=== PATIENT | female | born 1965 ===

== ENCOUNTER 2017-03-01 19:27 | Emergency (ER) | payer MEDICAID, OTHER ==
[2017-03-01 19:46] VITALS: BMI 19.5
[2017-03-01 19:47] VITALS: BP 96/58; RESP 16
[2017-03-01] MEDS ORDERED: Sodium Chloride 0.9% 1,000 ML IV STA (20:33)
[2017-03-01] MEDS ORDERED: DiphenhydrAMINE 50 mg/ml Inj IVP STA (20:34)
--- NOTE | 2017-03-01 20:46 | ED PDOC ---
Arrival/HPI - General Chief Complaint: Headache Time Seen by Provider: 03/01/17 20:32 Historian: Patient - History of Present Illness Narrative History of Present Illness (Text): 03/01/17 20:21 A 51 year old female presents to the emergency department with two complaints. Patient complaining of right lower flank pain radiating into the right lower abdomen for the past 3 days. Patient reports she has a history of a kidney stone and pain is similar. She denies any hematuria. Patient also complains of a migraine that has been present for the past 3 days. She says she has a history of Migraines at this similar to previous episodes. She denies any fever , nausea, vomiting, focal weakness, dizziness or other complaints at this time. PMD: Dr. Levin Time/Duration: Other (3 days) Symptom Onset: Sudden Symptom Course: Unchanged Quality: Other Activities at Onset: Rest Context: Home Past Medical History - Provider Review Nursing Documentation Reviewed: Yes - Infectious Disease Hx of Infectious Diseases: None - Tetanus Immunization Tetanus Immunization: Unknown - Cardiac Hx Cardiac Disorders: Yes Hx Angina: Yes - Pulmonary Hx Respiratory Disorders: No - Neurological Hx Neurological Disorder: Yes Hx Migraine: Yes - HEENT Hx HEENT Disorder: No - Renal Hx Renal Disorder: No - Endocrine/Metabolic Hx Endocrine Disorders: Yes Hx Diabetes Mellitus Type 1: Yes - Hematological/Oncological Hx Blood Disorders: No - Integumentary Hx Dermatological Disorder: No - Musculoskeletal/Rheumatological Hx Musculoskeletal Disorders: No - Gastrointestinal Hx Gastrointestinal Disorders: No - Genitourinary/Gynecological Hx Genitourinary Disorders: No - Psychiatric Hx Psychophysiologic Disorder: Yes Hx Anxiety: Yes Hx Bipolar Disorder: Yes (has not taken meds x 5 months) Hx Substance Use: No - Surgical History Hx Appendectomy: Yes Hx Cholecystectomy: Yes Hx Hysterectomy: Yes - Anesthesia Hx Anesthesia: Yes Hx Anesthesia Reactions: No - Suicidal Assessment Feels Threatened In Home Enviroment: No Family/Social History - Physician Review Nursing Documentation Reviewed: Yes Family/Social History: Unknown Family HX Smoking Status: Heavy Smoker > 10 Cigarettes Daily Hx Alcohol Use: No Hx Substance Use: No Allergies/Home Meds Allergies/Adverse Reactions: Allergies aspirin Allergy (Verified 03/01/17 19:46) SHORTNESS OF BREATH Home Medications: Home Meds Medication Instructions Recorded Confirmed Ativan 0 mg PO BID 02/04/15 03/01/17 Insulin Human NPH/Reg [HumuLIN 15 units SUBCUT .MORNING 03/01/17 03/01/17 70/30 (NPH/Reg)] Nitroglycerin [Nitrostat SL Tab] 1 tab SL PRN PRN 03/01/17 03/01/17 Paroxetine HCl [Paxil] 20 mg PO DAILY 03/01/17 03/01/17 Physical Exam - Physical Exam Narrative Physical Exam (Text): - Review of Systems Constitutional: Normal. absent: Fatigue, Weight Change, Fevers Eyes: Normal ENT: Normal Respiratory: Normal absent: SOB, Cough, Sputum Cardiovascular: Normal absent: Chest pain, Palpitations, Syncope Gastrointestinal: right lower abdominal pain. absent: Diarrhea, Nausea, Vomiting Genitourinary: Normal. absent: Dysuria, Frequency, Hematuria Musculoskeletal: left flank pain. absent: Arthralgias, Back Pain, Neck Pain Skin: Normal Neurological: headache. absent: Focal Weakness Endocrine: Normal Hemo/Lymphatic: Normal Psychiatric: Normal - Physical exam Patient appears age appropriate, speaking full sentences without difficulty - Systems Exam Head: Present: Atraumatic, Normocephalic Pupils: Present: PERRL Extraocular Muscles: Present: EOMI Conjunctiva: Present: Normal Mouth: Present: Moist Mucous Membranes Neck: Present: Normal Range of Motion. No: MIDLINE TENDERNESS, Paraspinal Tenderness Respiratory/Chest: Present: Clear to Auscultation, Good Air Exchange. No: Respiratory Distress, Accessory Muscle Use, Tachypneic Cardiovascular: Present: Regular Rate and Rhythm, Normal S1, S2, Peripheral Pulses Present. No: Murmurs Abdomen: Present: Normal Bowel Sounds, Right lower quadrant tenderness with palpation. No: Peritoneal Signs, Rebound, Guarding, Distention Back: Present: Left CVA tenderness with palpation No: Midline Tenderness, Paraspinal Tenderness Upper Extremity: Present: Normal Inspection. No: Cyanosis, Edema Lower Extremity: Present: Normal Inspection. No: Edema Neurological: Present: GCS=15, Speech Normal, cranial nerves II through XII fully intact with no cerebellar abnormality, neuro-sensory fully intact. No focal neurological deficits. Skin: Present: Warm, Dry, Normal Color. No: Rashes Lymphatic: Present: OX3, NI, NC Psychiatric: Present: Alert, Oriented x 3, Normal Insight, Normal Concentration Vital Signs Reviewed: Yes Vital Signs Temp Pulse Resp BP Pulse Ox 03/01/17 22:03 98.6 F 88 16 97 03/01/17 19:46 98.3 F 84 16 96/58 L 100 Temperature: Afebrile Blood Pressure: Hypotensive Pulse: Regular Respiratory Rate: Normal Appearance: Positive for: Well-Appearing, Non-Toxic, Comfortable Pain Distress: None Mental Status: Positive for: Alert and Oriented X 3 Medical Decision Making ED Course and Treatment: 03/01/17 20:21 Impression: A 51 year old female with right flank pain radiated to the right lower quadrant and a migraine. Differential Diagnosis include but are not limited to: kidney stone vs. migraine Plan: -- Abdomen/Pelvis CT -- Urinalysis -- Benadryl, Flomax, Reglan, Tylenol and IV FLuids -- Reassess and disposition Progress Notes: 03/01/17 23:[address] Vega in stable condition, pending CT read, reeval, dispo - Lab Interpretations Lab Results: Lab Results 03/01/17 20:42: Urine Color Yellow, Urine Appearance Clear, Urine pH 6.0, Ur Specific [place] >= 1.030, Urine Protein Negative, Urine Glucose (UA) Negative, Urine Ketones Trace H, Urine Blood Negative, Urine Nitrate Negative, Urine Bilirubin Negative, Urine Urobilinogen 1.0 H, Ur Leukocyte Esterase Negative I have reviewed the lab results: Yes - RAD Interpretation Radiology Orders: 03/01/17 20:35 ABD & PELVIS W/O PO OR IV CONT [CT] Stat - Medication Orders Current Medication Orders: Discontinued Medications Acetaminophen (Tylenol 325mg Tab) 975 mg PO STAT STA Stop: 03/01/17 20:34 Last Admin: 03/01/17 21:05 Dose: 975 mg Diphenhydramine HCl (Benadryl) 25 mg IVP STAT STA Stop: 03/01/17 20:35 Last Admin: 03/01/17 21:05 Dose: 25 mg Sodium Chloride (Sodium Chloride 0.9%) 1,000 mls @ 1,000 mls/hr IV .Q1H STA Stop: 03/01/17 21:32 Last Admin: 03/01/17 20:50 Dose: 1,000 mls/hr Metoclopramide HCl (Reglan) 10 mg IVP STAT STA Stop: 03/01/17 20:35 Last Admin: 03/01/17 21:07 Dose: 10 mg Tamsulosin HCl (Flomax) 0.4 mg PO STAT STA Stop: 03/01/17 20:35 Last Admin: 03/01/17 21:05 Dose: 0.4 mg - Scribe Statement The provider has reviewed the documentation as recorded by the Terrance Navarrete Provider Scribe Attestation: All medical record entries made by the Scribe were at my direction and personally dictated by me. I have reviewed the chart and agree that the record accurately reflects my personal performance of the history, physical exam, medical decision making, and the department course for this patient. I have also personally directed, reviewed, and agree with the discharge instructions and disposition. Disposition/Present on Arrival - Present on Arrival Any Indicators Present on Arrival: No History of DVT/PE: No History of Uncontrolled Diabetes: No Urinary Catheter: No History of Decub. Ulcer: No History Surgical Site Infection Following: None - Disposition Have Diagnosis and Disposition been Completed?: Yes Diagnosis: Abdominal pain Disposition Time: 23:06 Condition: STABLE Referrals: Samara Levin MD [Primary Care Provider] - Follow up with primary
[2017-03-01 21:29] LABS: URINE APPEARANCE CLEAR (CLEAR); URINE BILIRUBIN NEGATIVE (NEGATIVE); URINE BLOOD NEGATIVE (NEGATIVE); URINE COLOR YELLOW (YELLOW); URINE GLUCOSE (UA) NEGATIVE (NEGATIVE); URINE KETONE TRACE mg/dL (NEGATIVE); URINE LEUKOCYTE ESTERASE NEGATIVE Leu/uL (NEGATIVE); URINE PROTEIN NEGATIVE mg/dL (<30 mg/dL)
[2017-03-01 22:04] VITALS: PULSE 88; TEMP 98.6
--- NOTE | 2017-03-01 23:37 | ED PDOC ---
Physical Exam Vital Signs Reviewed: Yes Vital Signs Temp Pulse Resp BP Pulse Ox 03/01/17 22:03 98.6 F 88 16 97 03/01/17 19:46 98.3 F 84 16 96/58 L 100 Temperature: Afebrile Blood Pressure: Normal Pulse: Regular Respiratory Rate: Normal Appearance: Positive for: Well-Appearing, Non-Toxic, Comfortable Pain Distress: None Mental Status: Positive for: Alert and Oriented X 3 Medical Decision Making ED Course and Treatment: 03/01/17 23:35 Patient endorsed to me by , pending CT scan, reevaluation and disposition. Patient presents to the emergency department complaining of right flank pain radiating to right lower quadrant abdomen. States symptoms are similar to previous episode of nephrolithiasis.Also with coincidental migraine headache. 03/02/17 00:36 On re-evaluation, patient feels better and is in no acute distress. I have discussed the results and plan with the patient, who expresses understanding. Patient in agreement with plan to be discharged home. Patient is stable for discharge. Patient was instructed to follow up with physician or return if symptoms worsen or new concerning symptoms arise. - Lab Interpretations Lab Results: Lab Results 03/01/17 20:42: Urine Color Yellow, Urine Appearance Clear, Urine pH 6.0, Ur Specific [place] >= 1.030, Urine Protein Negative, Urine Glucose (UA) Negative, Urine Ketones Trace H, Urine Blood Negative, Urine Nitrate Negative, Urine Bilirubin Negative, Urine Urobilinogen 1.0 H, Ur Leukocyte Esterase Negative - RAD Interpretation Narrative RAD Interpretations (Text): 03/02/17 00:22 EXAM: CT Abdomen and Pelvis Without Intravenous Contrast FINDINGS: Lower thorax: Bibasilar interstitial thickening present. ABDOMEN:IV contrast not given limiting evaluation of the solid organs of the abdomen and pelvis as well as the appendix. Liver: Unremarkable. Gallbladder and bile ducts: Cholecystectomy clips present. No ductal dilation. Pancreas: . No ductal dilation. Spleen: . No splenomegaly. Adrenals: . No mass. Kidneys and ureters: Nonobstructing calcification in the left kidney present. A calcification along the projected course of the right ureter present in the lower pelvis although ureter is not visualized. No proximal obstruction present. Correlation with prior imaging or follow up with contrast delayed phase images. Correlate with history. Stomach and bowel: Copious amount of stool in the colon present. No obstruction. No mucosal thickening. Appendix: Appendix is not visualized and therefore difficult to characterize. PELVIS: Bladder: . No stones. Reproductive: Unremarkable as visualized. ABDOMEN and PELVIS: Intraperitoneal space: . No free air. No significant fluid collection. Bones/joints: No acute fracture. No dislocation. Soft tissues: within normal limits Vasculature: . No abdominal aortic aneurysm. Lymph nodes: Nonspecific scattered mildly prominent lymph nodes present. IMPRESSION: 1. Nonobstructing calcification in the left kidney present. 2. A calcification along the projected course of the right ureter present in the lower pelvis although ureter is not visualized. No proximal obstruction present. Correlation with prior imaging or follow up with contrast delayed phase images. Correlate with history. Radiology Orders: 03/01/17 20:35 ABD & PELVIS W/O PO OR IV CONT [CT] Stat Pst Supervisor: Radiologist - Medication Orders Current Medication Orders: Discontinued Medications Acetaminophen (Tylenol 325mg Tab) 975 mg PO STAT STA Stop: 03/01/17 20:34 Last Admin: 03/01/17 21:05 Dose: 975 mg Diphenhydramine HCl (Benadryl) 25 mg IVP STAT STA Stop: 03/01/17 20:35 Last Admin: 03/01/17 21:05 Dose: 25 mg Sodium Chloride (Sodium Chloride 0.9%) 1,000 mls @ 1,000 mls/hr IV .Q1H STA Stop: 03/01/17 21:32 Last Admin: 03/01/17 20:50 Dose: 1,000 mls/hr Metoclopramide HCl (Reglan) 10 mg IVP STAT STA Stop: 03/01/17 20:35 Last Admin: 03/01/17 21:07 Dose: 10 mg Tamsulosin HCl (Flomax) 0.4 mg PO STAT STA Stop: 03/01/17 20:35 Last Admin: 03/01/17 21:05 Dose: 0.4 mg - Ortizibe Statement The provider has reviewed the documentation as recorded by the Terrance Ibrahim Provider Attestation: All medical record entries made by the Terrance were at my direction and personally dictated by me. I have reviewed the chart and agree that the record accurately reflects my personal performance of the history, physical exam, medical decision making, and the department course for this patient. I have also personally directed, reviewed, and agree with the discharge instructions and disposition. Disposition/Present on Arrival - Present on Arrival Any Indicators Present on Arrival: No History of DVT/PE: No History of Uncontrolled Diabetes: No Urinary Catheter: No History of Decub. Ulcer: No History Surgical Site Infection Following: None - Disposition Have Diagnosis and Disposition been Completed?: Yes Diagnosis: Renal colic, Migraine Disposition: HOME/ ROUTINE Disposition Time: 00:28 Patient Plan: Discharge Patient Problems: Current Active Problems Problem Status Onset Migraine Acute Renal colic Acute Condition: STABLE Discharge Instructions (ExitCare): Renal Colic (ED), Migraine Headache (ED) Additional Instructions: Drink plenty of liquids/take meds as prescribed/follow up with the urologist this week/any recurrent worsening symptoms return to the emergency room Prescriptions: oxyCODONE/Acetaminophen [Percocet 5/325 mg Tab] 1 ea PO Q6 PRN #12 tab PRN Reason: Pain, Moderate (4-7) Referrals: Samara Levin MD [Primary Care Provider] - Follow up with primary
[2017-03-02 01:05] VITALS: O2SAT 98
--- NOTE | 2017-03-02 10:13 | CT ---
PROCEDURE: CT Abdomen and Pelvis without intravenous contrast HISTORY: Renal colic COMPARISON: None. TECHNIQUE: Axial and reformatted coronal and sagittal CT images of the abdomen and pelvis were obtained without IV or oral contrast administration.. Contrast Dose: 0 Radiation dose: Total exam DLP = 222.79 mGy-cm. This CT exam was performed using one or more of the following dose reduction techniques: Automated exposure control, adjustment of the mA and/or kV according to patient size, and/or use of iterative reconstruction technique. FINDINGS: LOWER THORAX: Minimal atelectasis at the lung bases LIVER: Unremarkable. No gross lesion or ductal dilatation. GALLBLADDER AND BILE DUCTS: Status post cholecystectomy PANCREAS: Unremarkable. No gross lesion or ductal dilatation. SPLEEN: Unremarkable. ADRENALS: Unremarkable. No mass. KIDNEYS AND URETERS: There is 5.8 millimeter nonobstructing calculus at the upper pole of the left kidney. No evidence of hydronephrosis. There is 3 millimeter calcification at or adjacent to the mid right ureter may represent calcified lymph node. VASCULATURE: Unremarkable. No aortic aneurysm. BOWEL: Unremarkable. No obstruction. No gross mural thickening. Mild constipation is noted. APPENDIX: No evidence of appendicitis PERITONEUM: Unremarkable. No free fluid. No free air. LYMPH NODES: Unremarkable. No enlarged lymph nodes. BLADDER: Unremarkable. REPRODUCTIVE: Prostate is normal in size. There are calcifications seen in both seminal vesicles/vas deferens. BONES: No acute fracture. OTHER FINDINGS: None. IMPRESSION: Approximately 6 millimeter nonobstructing calculus at the upper pole of the left kidney. No evidence of hydronephrosis. 3 millimeter calcification at or adjacent to the mid right ureter without evidence of hydroureter. Otherwise no evidence of acute pathology in the abdomen and pelvis. Preliminary report was submitted by [facility].
== END 2017-03-02 01:05 | disposition home or self-care (01) ==
LOC: ED 19:27
DX: R10.9 Unspecified abdominal pain (principal); I20.9 Angina pectoris, unspecified; F41.9 Anxiety disorder, unspecified
CPT/HCPCS: 74176; 81003; 96374; 96375; 99285; J1200; J2765; J7040

== ENCOUNTER 2017-05-27 15:44 | Observation (INO) | payer OTHER ==
[2017-05-27 15:53] VITALS: BMI 21.9
--- NOTE | 2017-05-27 16:10 | ED PDOC ---
Arrival/HPI - General Chief Complaint: Chest Pain Time Seen by Provider: 05/27/17 15:55 Historian: Patient, Family (Son) - History of Present Illness Time/Duration: 1/2 hour Symptom Onset: Sudden Symptom Course: Improving Quality: Aching Severity Level: Mild Activities at Onset: Rest Associated Symptoms (Text): 05/27/17 16:08 Patient reports her typical migraine headache for the last 3 days. She was seen in the clinic for her migraine headache, and complained of chest pain while there and was directed to the emergency department via ambulance from the clinic. No dyspnea. No diaphoresis. No dizziness or lightheadedness. No nausea or vomiting. No numbness tingling or paresthesias. There is generalized, but no focal, weakness. She reports this is her typical migraine headache. Past Medical History - Infectious Disease Hx of Infectious Diseases: None - Tetanus Immunization Tetanus Immunization: Unknown - Cardiac Hx Cardiac Disorders: Yes Hx Angina: Yes - Pulmonary Hx Respiratory Disorders: No - Neurological Hx Neurological Disorder: Yes Hx Migraine: Yes - HEENT Hx HEENT Disorder: No - Renal Hx Renal Disorder: No - Endocrine/Metabolic Hx Endocrine Disorders: Yes Hx Diabetes Mellitus Type 1: Yes - Hematological/Oncological Hx Blood Disorders: No - Integumentary Hx Dermatological Disorder: No - Musculoskeletal/Rheumatological Hx Musculoskeletal Disorders: No - Gastrointestinal Hx Gastrointestinal Disorders: No - Genitourinary/Gynecological Hx Genitourinary Disorders: No - Psychiatric Hx Psychophysiologic Disorder: Yes Hx Anxiety: Yes Hx Bipolar Disorder: Yes (has not taken meds x 5 months) Hx Substance Use: No - Surgical History Hx Appendectomy: Yes Hx Cholecystectomy: Yes Hx Hysterectomy: Yes - Anesthesia Hx Anesthesia: Yes Hx Anesthesia Reactions: No - Suicidal Assessment Feels Threatened In Home Enviroment: No Family/Social History - Physician Review Nursing Documentation Reviewed: Yes Family/Social History: Unknown Family HX Smoking Status: Heavy Smoker > 10 Cigarettes Daily Hx Alcohol Use: No Hx Substance Use: No Allergies/Home Meds Allergies/Adverse Reactions: Allergies aspirin Allergy (Verified 03/01/17 19:46) SHORTNESS OF BREATH Home Medications: Home Meds Medication Instructions Recorded Confirmed Unobtainable 05/27/17 05/27/17 Review of Systems - Physician Review All systems were reviewed & negative as marked: Yes - Review of Systems Constitutional: absent: Fatigue, Fevers Respiratory: absent: SOB, Cough, Sputum, Wheezing Cardiovascular: Chest Pain. absent: Palpitations, Syncope Gastrointestinal: absent: Abdominal Pain, Nausea, Vomiting Skin: Normal Neurological: Headache. absent: Dizziness, Focal Weakness, Gait Changes Physical Exam Vital Signs Temp Pulse Resp BP Pulse Ox 05/27/17 17:30 54 L 18 118/71 100 05/27/17 16:38 62 18 114/65 100 05/27/17 15:53 98.4 F 61 18 116/61 100 Temperature: Afebrile Blood Pressure: Normal Pulse: Regular Respiratory Rate: Normal Appearance: Positive for: Well-Appearing, Non-Toxic, Comfortable Pain Distress: None Mental Status: Positive for: Alert and Oriented X 3 - Systems Exam Head: Present: Atraumatic, Normocephalic Pupils: Present: PERRL Extroacular Muscles: Present: EOMI Conjunctiva: Present: Normal Ears: Present: NORMAL TM, Normal Canal. No: Erythema Mouth: Present: Moist Mucous Membranes Pharnyx: No: ERYTHEMA, EXUDATE, TONSILS ENLARGED Neck: Present: Normal Range of Motion Respiratory/Chest: Present: Clear to Auscultation, Good Air Exchange. No: Respiratory Distress, Accessory Muscle Use Cardiovascular: Present: Regular Rate and Rhythm, Normal S1, S2. No: Murmurs Abdomen: Present: Normal Bowel Sounds. No: Tenderness, Distention, Peritoneal Signs, Rebound, Guarding Back: Present: Normal Inspection Upper Extremity: Present: Normal Inspection. No: Cyanosis, Edema Lower Extremity: Present: Normal Inspection. No: Edema Neurological: Present: GCS=15, CN II-XII Intact, Speech Normal, Motor Func Grossly Intact, Normal Cerebellar Funct, Gait Normal Skin: Present: Warm, Dry, Normal Color. No: Rashes Psychiatric: Present: Alert, Oriented x 3, Normal Insight, Normal Concentration Medical Decision Making ED Course and Treatment: 05/27/17 16:10 EKG shows normal sinus rhythm rate approximately [address] or T-wave changes Report Date : 05/27/2017 16:32:23 Procedure: Chest xray Dictator : Ramiro Fisher MD IMPRESSION: No active disease. Report Date : 05/27/2017 17:20:39 PROCEDURE: CT HEAD WITHOUT CONTRAST. Dictator : Marcela Buitrago MD IMPRESSION: No acute intracranial pathology identified. - Lab Interpretations Lab Results: 05/27/17 16:30 05/27/17 16:30 Lab Results 05/27/17 16:30: Sodium 141, Potassium 3.7, Chloride 105, Carbon Dioxide 28, Anion Gap 12, BUN 11, Creatinine 0.6, Est GFR ( Amer) > 60, Est GFR (Non- Af Amer) > 60, Random Glucose 98, Calcium 9.4, Total Bilirubin 0.6, AST 27, ALT 29, Alkaline Phosphatase 79, Lactate Dehydrogenase 441, Total Creatine Kinase 178, Troponin I < 0.01 D, Total Protein 7.0, Albumin 3.9, Globulin 3.0, Albumin /Globulin Ratio 1.3 05/27/17 16:30: PT 10.4, INR 0.96, APTT 28.9, D-Dimer, Quantitative 0.50 05/27/17 16:30: WBC 6.5 D, RBC 4.36, Hgb 13.0, Hct 38.7, MCV 88.8, MCH 29.8, MCHC 33.6, RDW 13.5, Plt Count 236, MPV 8.7, Gran % 58.6, Lymph % (Auto) 33.8, [place] % (Auto) 6.2 H, Eos % (Auto) 1.1 L, Baso % (Auto) 0.3, Gran # 3.81, Lymph # 2.2, [place] # 0.4, Eos # 0.1, Baso # 0.02 - RAD Interpretation Radiology Orders: 05/27/17 16:05 HEAD W/O CONTRAST [CT] Stat CHEST PORTABLE [RAD] Stat CT scan of the head as read by the radiologist shows no acute findings Post Doc Fellowship: Radiologist - Medication Orders Current Medication Orders: Discontinued Medications Nitroglycerin (Nitrostat Sl Tab) 0.4 mg SL STAT STA Stop: 05/27/17 16:08 Last Admin: 05/27/17 16:36 Dose: 0.4 mg Disposition/Present on Arrival - Present on Arrival Any Indicators Present on Arrival: No History of DVT/PE: No History of Uncontrolled Diabetes: No Urinary Catheter: No History of Decub. Ulcer: No History Surgical Site Infection Following: None - Disposition Have Diagnosis and Disposition been Completed?: Yes Diagnosis: Chest pain, Migraine headache Disposition: HOSPITALIZED Disposition Time: 17:42 Patient Plan: Observation, Telemetry Condition: GOOD Discharge Instructions (ExitCare): Chest Pain (ED) Referrals: PCP,NO [Primary Care Provider] - Follow up with primary
[2017-05-27 16:31] LABS: ADD MANUAL DIFF? NO
--- NOTE | 2017-05-27 16:34 | RAD ---
HISTORY: cp COMPARISON: No prior. FINDINGS: LUNGS: No active pulmonary disease. PLEURA: No significant pleural effusion identified, no pneumothorax apparent. CARDIOVASCULAR: Normal. OSSEOUS STRUCTURES: No significant abnormalities. VISUALIZED UPPER ABDOMEN: Normal. OTHER FINDINGS: None. IMPRESSION: No active disease.
[2017-05-27 16:40] LABS: BASO # 0.02 K/mm3 (0.0-2.0); BASO % 0.3 % (0.0-3.0); EOS # 0.1 (0.0-0.7); EOS % 1.1 % (1.5-5.0); GRAN # 3.81 (1.4-6.5); GRAN % 58.6 % (50.0-68.0); HEMATOCRIT 38.7 % (36.0-48.0); LYMPH # 2.2 (1.2-3.4); LYMPH % 33.8 % (22.0-35.0); MEAN CELL VOLUME 88.8 fL (80.0-105.0); MEAN CORPUSCULAR HEMOGLOBIN 29.8 pg (25.0-35.0); MEAN CORPUSCULAR HGB CONC 33.6 g/dl (31.0-37.0); MEAN PLATELET VOLUME 8.7 fl (7.0-11.0); MONO # 0.4 (0.1-0.6); MONO % 6.2 % (1.0-6.0); PLATELET COUNT 236 10^3/uL (120.0-450.0); RED CELL DISTRIBUTION WIDTH 13.5 % (11.5-14.5); WHITE BLOOD COUNT 6.5 10^3/ul (4.5-11.0)
[2017-05-27 16:50] LABS: ALB/GLOB RATIO 1.3 (1.1-1.8); ALKALINE PHOSPHATASE 79 U/L (38-133); ALT/SGPT 29 U/L (7-56); AST/SGOT 27 U/L (15-39); BILIRUBIN,TOTAL 0.6 mg/dL (0.2-1.3); BLOOD UREA NITROGEN 11 mg/dL (7-21); CALCIUM 9.4 mg/dL (8.4-10.5); CARBON DIOXIDE 28 mmol/L (21-33); CHLORIDE 105 mmol/L (98-107); GFR AFRICAN-AMERICAN > 60; GLUCOSE,RANDOM 98 mg/dL (70-110); POTASSIUM 3.7 mmol/L (3.6-5.0); SODIUM 141 mmol/L (132-148)
[2017-05-27 16:53] LABS: INR 0.96 (0.93-1.08); PARTIAL THROMBOPLASTIN TIME 28.9 Seconds (23.7-30.8)
[2017-05-27 16:55] LABS: D DIMER 0.5 mg/L FEU (0-0.50)
[2017-05-27 17:03] LABS: TROPONIN I < 0.01 ng/mL
--- NOTE | 2017-05-27 17:22 | CT ---
PROCEDURE: CT HEAD WITHOUT CONTRAST. HISTORY: RG COMPARISON: None available. TECHNIQUE: Axial computed tomography images were obtained through the head/brain without intravenous contrast. Radiation dose: Total exam DLP = 725.84 mGy-cm. This CT exam was performed using one or more of the following dose reduction techniques: Automated exposure control, adjustment of the mA and/or kV according to patient size, and/or use of iterative reconstruction technique. FINDINGS: HEMORRHAGE: No intracranial hemorrhage. BRAIN: No mass effect or edema. No atrophy or chronic microvascular ischemic changes.Please note that MRI with diffusion imaging is more sensitive in the detection of acute ischemic event. VENTRICLES: No hydrocephalus. CALVARIUM: Unremarkable. PARANASAL SINUSES: Unremarkable as visualized. No significant inflammatory changes. MASTOID AIR CELLS: Unremarkable as visualized. No inflammatory changes. OTHER FINDINGS: None. IMPRESSION: No acute intracranial pathology identified.
[2017-05-27] MEDS ORDERED: Albuterol-Ipratrop 3 mg / 0.5 (3 ml) UD IH PRN (18:14)
[2017-05-27] MEDS: Insulin Lispro (humaLOG) MIX 75/25(10 ml) SC SCH (18:42)
[2017-05-27 20:51] LABS: TROPONIN I < 0.01 ng/mL
--- NOTE | 2017-05-27 20:57 | CP.PCM.HP ---
<Haily Chapin - Last Filed: 05/27/17 20:58> History of Present Illness - History of Present Illness History of Present Illness: 51F reports her typical migraine headache for the last 3 days. She was seen in the urgent care clinic for her migraine headache, and complained of chest pain while there and was directed to the emergency department via ambulance from the clinic. Patient denies dyspnea, F/C, N/V, Numbness, parasthesia, SOB, Couging. Patient allowed me to turn on the light to exam in the patient at time of visit. Patient appeared to be confused and had a hard time finding words while describing her current problems and past medical history. PMD: Patient states she had "a tumor in her head for which she had stents placed." DM, bipolar (no meds for 5 months), anxiety PSHx: Hysterectomy, ooverectomy, cholecystectomy FHx: Heart problems PMD: No PMD EKG shows normal sinus rhythm rate approximately [address] or T-wave changes Chest xray:No active disease. PROCEDURE: CT HEAD WITHOUT CONTRAST: No acute intracranial pathology identified. Present on Admission - Present on Admission Any Indicators Present on Admission: Yes History of DVT/PE: No History of Uncontrolled Diabetes: Yes Review of Systems - Constitutional Constitutional: As Per HPI - Cardiovascular Cardiovascular: As Per HPI - Respiratory Respiratory: As Per HPI - Gastrointestinal Gastrointestinal: As Per HPI Past Patient History - Infectious Disease Hx of Infectious Diseases: None - Tetanus Immunizations Tetanus Immunization: Unknown - Past Social History Smoking Status: Heavy Smoker > 10 Cigarettes Daily - CARDIAC Hx Cardiac Disorders: Yes Hx Angina: Yes - PULMONARY Hx Respiratory Disorders: No - NEUROLOGICAL Hx Neurological Disorder: Yes Hx Migraine: Yes - HEENT Hx HEENT Problems: No - RENAL Hx Chronic Kidney Disease: No - ENDOCRINE/METABOLIC Hx Endocrine Disorders: Yes Hx Diabetes Mellitus Type 1: Yes - HEMATOLOGICAL/ONCOLOGICAL Hx Blood Disorders: No - INTEGUMENTARY Hx Dermatological Problems: No - MUSCULOSKELETAL/RHEUMATOLOGICAL Hx Musculoskeletal Disorders: No - GASTROINTESTINAL Hx Gastrointestinal Disorders: No - GENITOURINARY/GYNECOLOGICAL Hx Genitourinary Disorders: No - PSYCHIATRIC Hx Psychophysiologic Disorder: Yes Hx Anxiety: Yes Hx Bipolar Disorder: Yes (has not taken meds x 5 months) Hx Substance Use: No - SURGICAL HISTORY Hx Appendectomy: Yes Hx Cholecystectomy: Yes Hx Hysterectomy: Yes - ANESTHESIA Hx Anesthesia: Yes Hx Anesthesia Reactions: No Meds Home Medications: Home Medication List Medication Instructions Recorded Confirmed Type Albuterol/Ipratropium [Duoneb 3 3 ml IH [id number] PRN 05/28/17 Rx mg/0.5 mg (3 ml) UD] DULoxetine [Cymbalta] 30 mg PO DAILY ecc 05/28/17 Rx hydrOXYzine HCl [Atarax] 25 mg PO HS PRN tab 05/28/17 Rx Carvedilol [Coreg] 3.125 mg PO BID #60 tab 05/29/17 Rx Insulin Aspar/Insulin N 70/30 15 ml SC BID #60 rivera 05/29/17 Rx [Novolog MIX 70/30-U/ML 3ML] LORazepam [Ativan] 0.5 mg PO BID #6 tab 05/29/17 Rx Pantoprazole Sodium [Protonix] 40 mg PO DAILY #30 tablet. 05/29/17 Rx Allergies/Adverse Reactions: Allergies Allergy/AdvReac Type Severity Reaction Status Date / Time aspirin Allergy SHORTNESS Verified 03/01/17 19:46 OF BREATH Physical Exam - Head Exam Head Exam: ATRAUMATIC, NORMAL INSPECTION - Eye Exam Eye Exam: EOMI, Normal appearance - ENT Exam ENT Exam: Mucous Membranes Moist - Neck Exam Neck exam: Positive for: Full Rom, Normal Inspection - Respiratory Exam Respiratory Exam: Decreased Breath Sounds, NORMAL BREATHING PATTERN. absent: Accessory Muscle Use, Respiratory Distress - Cardiovascular Exam Cardiovascular Exam: REGULAR RHYTHM, +S1, +S2. absent: Bradycardia, Tachycardia - GI/Abdominal Exam GI & Abdominal Exam: Soft. absent: Firm, Guarding, Tenderness - Extremities Exam Extremities exam: Positive for: full ROM, normal inspection. Negative for: pedal edema - Neurological Exam Neurological exam: Alert - Psychiatric Exam Psychiatric exam: Anxious, Flat Affect - Skin Skin Exam: Dry, Normal Color Results - Vital Signs Recent Vital Signs: Last Vital Signs Temp 98.4 F 05/27/17 15:53 Pulse 70 05/27/17 20:21 Resp 18 05/27/17 20:21 BP 115/72 05/27/17 20:21 Pulse Ox 100 05/27/17 20:21 - Labs Result Diagrams: 05/27/17 16:30 05/27/17 16:30 Labs: Laboratory Results - last 24 hr 05/27/17 20:12 Lactate Dehydrogenase 418 Total Creatine Kinase 172 Troponin I < 0.01 Assessment & Plan - Assessment and Plan (Free Text) Assessment: 51 F with migraine and chest pain with PMH of brain tumor, DM, bipolar (no meds for 5 months), anxiety Plan: Plan Consult: Dr. Aguilar - cardio consult Diet: Heart healthy Diet Chest pain Cardiac ISO routine labs TSH, thyroid labs Lipid panel Pain: tylenol, Fioricet Nitroglycerin 0.4mg Zofran 4mg IVP Q4H PRN Psyche: Bipolar anxiety Fioricet Duloxetine, gabapentin Diabetes: glucose ACHS Humalog 10 units SC BID GI PPX: Protonix 40mg IVP - Date & Time Date: 05/27/17 Time: 20:58 <RangasamyAjantha - Last Filed: 05/29/17 15:13> Results - Vital Signs Recent Vital Signs: Last Vital Signs Temp 97.5 F L 05/29/17 06:00 Pulse 58 L 05/29/17 06:00 Resp 18 05/29/17 06:00 BP 90/58 L 05/29/17 06:00 Pulse Ox 100 05/29/17 06:00 - Labs Result Diagrams: 05/29/17 07:18 05/29/17 07:18 Labs: Laboratory Results - last 24 hr 05/28/17 05/28/17 05/28/17 16:33 19:50 19:50 WBC RBC Hgb Hct MCV MCH MCHC RDW Plt Count MPV Gran % Lymph % (Auto) Garden % (Auto) Eos % (Auto) Baso % (Auto) Gran # Lymph # Garden # Eos # Baso # Sodium Potassium Chloride Carbon Dioxide Anion Gap BUN Creatinine Est GFR ( Amer) Est GFR (Non-Af Amer) POC Glucose (mg/dL) 95 Random Glucose Calcium Total Bilirubin AST ALT Alkaline Phosphatase Troponin I Total Protein Albumin Globulin Albumin/Globulin Ratio Thyroxine (T4) Urine Color Yellow Urine Appearance Clear Urine pH 7.5 Ur Specific [place] 1.015 Urine Protein Negative Urine Glucose (UA) Negative Urine Ketones Negative Urine Blood Negative Urine Nitrate Negative Urine Bilirubin Negative Urine Urobilinogen 1.0 H Ur Leukocyte Esterase Negative Urine Opiates Screen Negative Urine Methadone Screen Negative Ur Barbiturates Screen Positive H Ur Phencyclidine Scrn Negative Ur Amphetamines Screen Negative U Benzodiazepines Scrn Negative U Oth Cocaine Metabols Negative U Cannabinoids Screen Negative 05/28/17 05/29/17 05/29/17 21:39 07:18 07:18 WBC 7.0 RBC 4.16 Hgb 12.2 Hct 36.7 MCV 88.2 MCH 29.3 MCHC 33.2 RDW 13.3 Plt Count 224 MPV 9.0 Gran % 56.0 Lymph % (Auto) 34.5 Garden % (Auto) 7.2 H Eos % (Auto) 2.2 Baso % (Auto) 0.1 Gran # 3.90 Lymph # 2.4 Garden # 0.5 Eos # 0.2 Baso # 0.01 Sodium 138 Potassium 4.0 Chloride 102 Carbon Dioxide 29 Anion Gap 11 BUN 19 Creatinine 0.7 Est GFR ( Amer) > 60 Est GFR (Non-Af Amer) > 60 POC Glucose (mg/dL) 133 H Random Glucose 97 Calcium 9.1 Total Bilirubin 0.6 AST 28 ALT 26 Alkaline Phosphatase 68 Troponin I Total Protein 6.6 Albumin 3.6 Globulin 3.1 Albumin/Globulin Ratio 1.2 Thyroxine (T4) Urine Color Urine Appearance Urine pH Ur Specific [place] Urine Protein Urine Glucose (UA) Urine Ketones Urine Blood Urine Nitrate Urine Bilirubin Urine Urobilinogen Ur Leukocyte Esterase Urine Opiates Screen Urine Methadone Screen Ur Barbiturates Screen Ur Phencyclidine Scrn Ur Amphetamines Screen U Benzodiazepines Scrn U Oth Cocaine Metabols U Cannabinoids Screen 05/29/17 05/29/17 05/29/17 07:26 09:23 09:23 WBC RBC Hgb Hct MCV MCH MCHC RDW Plt Count MPV Gran % Lymph % (Auto) Garden % (Auto) Eos % (Auto) Baso % (Auto) Gran # Lymph # Garden # Eos # Baso # Sodium Potassium Chloride Carbon Dioxide Anion Gap BUN Creatinine Est GFR ( Amer) Est GFR (Non-Af Amer) POC Glucose (mg/dL) 113 H Random Glucose Calcium Total Bilirubin AST ALT Alkaline Phosphatase Troponin I < 0.01 Total Protein Albumin Globulin Albumin/Globulin Ratio Thyroxine (T4) 7.4 Urine Color Urine Appearance Urine pH Ur Specific [place] Urine Protein Urine Glucose (UA) Urine Ketones Urine Blood Urine Nitrate Urine Bilirubin Urine Urobilinogen Ur Leukocyte Esterase Urine Opiates Screen Urine Methadone Screen Ur Barbiturates Screen Ur Phencyclidine Scrn Ur Amphetamines Screen U Benzodiazepines Scrn U Oth Cocaine Metabols U Cannabinoids Screen 05/29/17 11:28 WBC RBC Hgb Hct MCV MCH MCHC RDW Plt Count MPV Gran % Lymph % (Auto) Garden % (Auto) Eos % (Auto) Baso % (Auto) Gran # Lymph # Garden # Eos # Baso # Sodium Potassium Chloride Carbon Dioxide Anion Gap BUN Creatinine Est GFR ( Amer) Est GFR (Non-Af Amer) POC Glucose (mg/dL) 67 Random Glucose Calcium Total Bilirubin AST ALT Alkaline Phosphatase Troponin I Total Protein Albumin Globulin Albumin/Globulin Ratio Thyroxine (T4) Urine Color Urine Appearance Urine pH Ur Specific [place] Urine Protein Urine Glucose (UA) Urine Ketones Urine Blood Urine Nitrate Urine Bilirubin Urine Urobilinogen Ur Leukocyte Esterase Urine Opiates Screen Urine Methadone Screen Ur Barbiturates Screen Ur Phencyclidine Scrn Ur Amphetamines Screen U Benzodiazepines Scrn U Oth Cocaine Metabols U Cannabinoids Screen Attending/Attestation - Attestation I have personally seen and examined this patient.: Yes I have fully participated in the care of the patient.: Yes I have reviewed all pertinent clinical information: Yes Notes (Text): 05/29/17 15:10 attending note; Patient seen and examined with resident in ER. Patient is a 51-year-old female admitted with severe migraine/chest pain. CT head is negative. Started on Fioricet for migraines. Chest pain; EKG is normal. Cardiac enzymes ordered. Echo ordered. Cardiology evaluation requested. Epigastric discomfort; possible gastritis. Started on Protonix. diabetes; continue insulin. Bipolar disorder; continue Cymbalta and hydroxyzine. Advised to follow-up with [facility]. upon discharge the patient will follow-up with [facility] and [place].
[2017-05-27] MEDS: Insulin Reg-LOW-Coverage SC SCH (22:10)
[2017-05-28] MEDS: Apap-Butalbital-Caffeine 325-50-40mg Tab PO PRN ×3 (01:25→20:45)
[2017-05-28 06:43] VITALS: O2SAT 100
[2017-05-28 07:10] LABS: BLOOD UREA NITROGEN 16 mg/dL (7-21); CALCIUM 9.3 mg/dL (8.4-10.5); CARBON DIOXIDE 28 mmol/L (21-33); CHLORIDE 105 mmol/L (98-107); CHOLESTEROL 150 mg/dL (130-200); GFR AFRICAN-AMERICAN > 60; GLUCOSE,RANDOM 99 mg/dL (70-110); POTASSIUM 4.2 mmol/L (3.6-5.0); SODIUM 140 mmol/L (132-148)
[2017-05-28 07:20] LABS: HEMATOCRIT 37.4 % (36.0-48.0); MEAN CELL VOLUME 89.9 fL (80.0-105.0); MEAN CORPUSCULAR HEMOGLOBIN 29.8 pg (25.0-35.0); MEAN CORPUSCULAR HGB CONC 33.2 g/dl (31.0-37.0); MEAN PLATELET VOLUME 9.2 fl (7.0-11.0); RED CELL DISTRIBUTION WIDTH 13.8 % (11.5-14.5); WHITE BLOOD COUNT 6.8 10^3/ul (4.5-11.0)
[2017-05-28 07:22] LABS: TROPONIN I < 0.01 ng/mL
[2017-05-28] MEDS: Insulin Reg-LOW-Coverage SC SCH ×4 (08:42→22:18)
--- NOTE | 2017-05-28 09:06 | CARD ---
APPROVED REPORT EKG Measurement Heart [id number] <Conclusion> Normal sinus rhythm Normal ECG No change except the rate is slower
[2017-05-28] MEDS: Insulin Lispro (humaLOG) MIX 75/25(10 ml) SC SCH ×2 (10:13→17:09)
[2017-05-28] MEDS ORDERED: Oxycodone/Acetaminophen 5/325 mg Tab PO ONE (10:26)
--- NOTE | 2017-05-28 11:56 | RAD ---
PROCEDURE: Cervical Spine Radiographs. HISTORY: Pain. COMPARISON: None. FINDINGS: BONES: There is straightening of the cervical spine with loss of normal cervical lordosis. Vertebral alignment is normal. Vertebral height is maintained. There is no acute fracture or spondylolisthesis. The craniocervical junction is normal. The atlantoaxial joint is normal. DISC SPACES: There is mild multilevel degenerative disc disease with anterior spurring, mild reduced disc heights and multilevel facet arthropathy, worse at C5-6. SOFT TISSUES: Normal. No prevertebral soft tissue swelling. OTHER FINDINGS: None. IMPRESSION: Mild multilevel degenerative disc disease, worse at C5-6. Straightening of the cervical spine may be positional or related to muscle spasm.
--- NOTE | 2017-05-28 18:57 | CP.PCM.PN ---
<TavaresHaily - Last Filed: 05/28/17 19:01> Subjective - Date & Time of Evaluation Date of Evaluation: 05/28/17 Time of Evaluation: 08:52 - Subjective Subjective: Internal Medicine Progress note for Dr. Fernandez PT S&E at bedside. patient states she has some pain on right chest and mid epigastric region. not reproduceable. Patient states her neck hurts. Pain is sharp feeling. Patient admits to headache. Patient denies Dizziness, N/V, constipation, diarrhea, Fever, chillls. Patient states she has chest pain that lasted a long time. IT does not happen every day. Patient added she had a stent placed through her right inguinal region. Patient is unsure of where and what was done. The procedure was not done in the [facility] and patient was unsure of when the procedure was done. Patient is a poor historian due to the observation of difficulty procuring some words, facts, and events at time of visit. Patient was spoken to about smoking cessation. Echo was ordered for today. Cervical XRAY was ordered to examine her neck. EKG normal. Trpn I normal Objective - Vital Signs/Intake and Output Vital Signs (last 24 hours): Temp Pulse Resp BP Pulse Ox 98 F 70 16 115/65 100 05/28/17 16:59 05/28/17 18:00 05/28/17 16:59 05/28/17 17:32 05/28/17 06:00 Intake and Output: 05/28/17 05/28/17 06:59 18:59 Intake Total 300 Output Total 300 Balance -300 300 - Medications Medications: Current Medications Acetaminophen (Tylenol 325mg Tab) 650 mg PO Q6H PRN PRN Reason: Fever >100.4 F Last Admin: 05/28/17 09:38 Dose: 650 mg Acetaminophen/Butalbital/Caffeine (Fioricet) 1 tab PO Q8 PRN PRN Reason: Migraine headache Last Admin: 05/28/17 09:45 Dose: 1 tab Albuterol/Ipratropium (Duoneb 3 Mg/0.5 Mg (3 Ml) Ud) 3 ml IH [id number] PRN PRN Reason: Shortness of Breath Last Admin: 05/28/17 01:35 Dose: 3 ml Carvedilol (Coreg) 3.125 mg PO BID ALEYDA Last Admin: 05/28/17 17:32 Dose: 3.125 mg Duloxetine HCl (Cymbalta) 30 mg PO DAILY [facility] Last Admin: 05/28/17 09:34 Dose: 30 mg Gabapentin (Neurontin) 100 mg PO TID ALEYDA PRN Reason: Protocol Last Admin: 05/28/17 17:32 Dose: 100 mg Hydroxyzine HCl (Atarax) 25 mg PO HS PRN PRN Reason: Anxiety Insulin Human Regular (Humulin R Low) 0 units SC ACHS ALEYDA PRN Reason: Protocol Last Admin: 05/28/17 16:48 Dose: Not Given Insulin Lispro Protam/Lispro Human (Humalog Mix 75/25) 10 units SC BID [facility] Last Admin: 05/28/17 17:09 Dose: Not Given Ondansetron HCl (Zofran Inj) 4 mg IVP Q4H PRN PRN Reason: Nausea/Vomiting Pantoprazole Sodium (Protonix Inj) 40 mg IVP DAILY [facility] Last Admin: 05/28/17 09:34 Dose: 40 mg - Labs Labs: 05/28/17 06:30 05/28/17 05:20 PT 10.4 Seconds (9.9-11.8) 05/27/17 16:30 INR 0.96 (0.93-1.08) 05/27/17 16:30 APTT 28.9 Seconds (23.7-30.8) 05/27/17 16:30 - Constitutional Appears: No Acute Distress, Unkempt, Older Than Stated Age, Chronically Ill - Head Exam Head Exam: NORMAL INSPECTION, NORMOCEPHALIC - Eye Exam Eye Exam: EOMI, Normal appearance - ENT Exam ENT Exam: Mucous Membranes Moist - Neck Exam Neck Exam: Full ROM, Normal Inspection - Respiratory Exam Respiratory Exam: Clear to Ausculation Bilateral, NORMAL BREATHING PATTERN. absent: Accessory Muscle Use, Rhonchi, Wheezes, Respiratory Distress - Cardiovascular Exam Cardiovascular Exam: REGULAR RHYTHM. absent: Bradycardia, Tachycardia - GI/Abdominal Exam GI & Abdominal Exam: Soft, Normal Bowel Sounds. absent: Bruit, Distended, Firm - Neurological Exam Neurological Exam: Awake - Psychiatric Exam Psychiatric exam: Flat Affect, Normal Mood - Skin Skin Exam: Dry, Normal Color, Warm Assessment and Plan - Assessment and Plan (Free Text) Assessment: 51 F presents with migraine and chest pain. past medical history of DM, bipolar (no medications 5 months), and anxiety Plan: Dr. Aguilar - cardio consult DC home when cleared by cardiology Diet: Heart healthy Diet Chest pain Cardiac ISO routine labs TSH, thyroid labs Lipid panel 05/28 f/u echo 05/27 Chest xray:No active disease. ddimer .50 TG 127 Cholesterol 150 LDL 73 HDL 50 TSH 1.21 T3 0.4 Pain: tylenol, Fioricet Nitroglycerin 0.4mg Zofran 4mg IVP Q4H PRN Psyche: Bipolar anxiety Fioricet Duloxetine, gabapentin CT HEAD WITHOUT CONTRAST: No acute intracranial pathology identified. Diabetes: glucose ACHS Humalog 10 units SC BID GI PPX: Protonix 40mg IVP 10cig/day x 15 year smoking history smoking cessation discussed Haily Chapin DO PGY1 <Jim TOUSSAINT,[facility] - Last Filed: 06/02/17 13:40> Objective - Vital Signs/Intake and Output Vital Signs (last 24 hours): Temp Pulse Resp BP Pulse Ox 97.5 F L 58 L 18 90/58 L 100 05/29/17 06:00 05/29/17 06:00 05/29/17 06:00 05/29/17 06:00 05/29/17 06:00 - Labs Labs: 05/29/17 07:18 05/29/17 07:18 PT 10.4 Seconds (9.9-11.8) 05/27/17 16:30 INR 0.96 (0.93-1.08) 05/27/17 16:30 APTT 28.9 Seconds (23.7-30.8) 05/27/17 16:30 Attending/Attestation - Attestation I have personally seen and examined this patient.: Yes I have fully participated in the care of the patient.: Yes I have reviewed all pertinent clinical information, including history, physical exam and plan: Yes Notes (Text): 06/02/17 13:37 Patient was seen and examined with outside medical sales representative. Agreed with resident assessment and plan. 51 F with PMH of DM/Schizophrenia and migrain was admitted with chest pain.Chest Pain is atypical, serial troponins are normal.Echo is pending.Patient case was discussed with cardiology .If Echo will be normal, she can be discharged home. Management plan was discussed in detail with patient Education was provided.
[2017-05-28 20:08] LABS: PH,URINE 7.5 (4.7-8.0); URINE APPEARANCE CLEAR (CLEAR); URINE BILIRUBIN NEGATIVE (NEGATIVE); URINE BLOOD NEGATIVE (NEGATIVE); URINE COLOR YELLOW (YELLOW); URINE GLUCOSE (UA) NEGATIVE (NEGATIVE); URINE KETONE NEGATIVE (NEGATIVE); URINE LEUKOCYTE ESTERASE NEGATIVE Leu/uL (NEGATIVE); URINE PROTEIN NEGATIVE mg/dL (<30 mg/dL)
--- NOTE | 2017-05-29 01:20 | CON ---
DATE: 05/28/2017 REASON FOR CONSULTATION: Chest pain. HISTORY OF PRESENT ILLNESS: The patient is 51 years old female originally from [place], visited here from the clinic because of chest pain. The patient was being evaluated in the clinic because of migraine headache. The patient does report to me that she has had stent from 2 years ago in [facility], but the patient is not sure of that information. The patient is unable to clearly describe the chest pain and denies any radiation or chest discomfort. The patient according to the [place] records underwent a Lexiscan in 2014, which was reported to be a negative study. SOCIAL HISTORY: The patient is a smoker. Occasional drinker. MEDICATIONS: Atarax 25 mg at bedtime, Cymbalta 30 mg once a day, Fioricet , Neurontin 100 mg b.i.d., and Protonix a day. PHYSICAL EXAMINATION: GENERAL: The patient is a middle-aged female who does not appear to be in any distress. VITAL SIGNS: Blood pressure 116/60, heart rate 64, temperature 97.4, and respirations 18. HEENT: Normocephalic. CHEST: Clear. HEART: S1 and S2 regular. ABDOMEN: Soft. EXTREMITIES: No edema. LABORATORY DATA: Today's SMA-7 and today's CBC are within normal limits. PT, PTT, and D-dimer are within normal limits. EKG revealed normal sinus rhythm. Head CT scan without contrast revealed no acute intracranial abnormalities. Cervical spine x-ray revealed mild multilevel degenerative disk disease, with C5-6. Straightening of the cervical spine with reposition or related to muscle spasms. Two sets of troponins were negative. TSH level is 0.4, which is below normal. Total T3 is within normal limits. Lipid profile is within normal limits. ASSESSMENT: 1. Chest pain, myocardial infarction, ruled out. 2. Questionable history of coronary artery disease. 3. Diabetes mellitus. 4. History of bronchial asthma. RECOMMENDATIONS: Continue current albuterol, Fioricet, IV Protonix. Start aspirin at 81 mg once a day and Coreg 3.125 mg twice a day. Obtain urine for drug screen and an echocardiogram. Andrew Hannallah, MD
[2017-05-29 01:40] VITALS: RESP 18
[2017-05-29 06:27] VITALS: PULSE 58
[2017-05-29 06:28] VITALS: BP 90/58; TEMP 97.5
[2017-05-29 07:21] LABS: ADD MANUAL DIFF? NO
[2017-05-29 07:33] LABS: BASO # 0.01 K/mm3 (0.0-2.0); BASO % 0.1 % (0.0-3.0); EOS # 0.2 (0.0-0.7); EOS % 2.2 % (1.5-5.0); HEMATOCRIT 36.7 % (36.0-48.0); LYMPH # 2.4 (1.2-3.4); LYMPH % 34.5 % (22.0-35.0); MEAN CELL VOLUME 88.2 fL (80.0-105.0); MEAN CORPUSCULAR HEMOGLOBIN 29.3 pg (25.0-35.0); MEAN CORPUSCULAR HGB CONC 33.2 g/dl (31.0-37.0); MONO # 0.5 (0.1-0.6); MONO % 7.2 % (1.0-6.0); PLATELET COUNT 224 10^3/uL (120.0-450.0); RED CELL DISTRIBUTION WIDTH 13.3 % (11.5-14.5)
[2017-05-29] MEDS: Insulin Reg-LOW-Coverage SC SCH ×3 (07:43→11:29)
[2017-05-29 07:50] LABS: ALB/GLOB RATIO 1.2 (1.1-1.8); ALKALINE PHOSPHATASE 68 U/L (38-133); ALT/SGPT 26 U/L (7-56); AST/SGOT 28 U/L (15-39); BILIRUBIN,TOTAL 0.6 mg/dL (0.2-1.3); BLOOD UREA NITROGEN 19 mg/dL (7-21); CALCIUM 9.1 mg/dL (8.4-10.5); CARBON DIOXIDE 29 mmol/L (21-33); CHLORIDE 102 mmol/L (98-107); GFR AFRICAN-AMERICAN > 60; GLUCOSE,RANDOM 97 mg/dL (70-110); SODIUM 138 mmol/L (132-148); TOTAL PROTEIN 6.6 g/dL (5.8-8.3)
[2017-05-29] MEDS: Insulin Lispro (humaLOG) MIX 75/25(10 ml) SC SCH (10:21)
[2017-05-29] MEDS ORDERED: Pneumococcal 23-Valent Vaccine IM ONE (13:26)
--- NOTE | 2017-05-29 15:23 | CP.PCM.DIS ---
<RejijayNicko - Last Filed: 05/29/17 15:12> Provider - Provider Date of Admission: 05/27/17 17:39 Attending physician: Camille Trejo MD Primary care physician: NO PRIMARY CARE PROVIDER Consults: Cardiology: Andrew Aguilar Time Spent in preparation of Discharge (in minutes): 30 Hospital Course - Lab Results Lab Results: Most Recent Lab Values WBC 7.0 10^3/ul (4.5-11.0) 05/29/17 07:18 RBC 4.16 10^6/uL (3.5-6.1) 05/29/17 07:18 Hgb 12.2 gm/dL (12.0-16.0) 05/29/17 07:18 Hct 36.7 % (36.0-48.0) 05/29/17 07:18 MCV 88.2 fL (80.0-105.0) 05/29/17 07:18 MCH 29.3 pg (25.0-35.0) 05/29/17 07:18 MCHC 33.2 g/dl (31.0-37.0) 05/29/17 07:18 RDW 13.3 % (11.5-14.5) 05/29/17 07:18 Plt Count 224 10^3/uL (120.0-450.0) 05/29/17 07:18 MPV 9.0 fl (7.0-11.0) 05/29/17 07:18 Gran % 56.0 % (50.0-68.0) 05/29/17 07:18 Lymph % (Auto) 34.5 % (22.0-35.0) 05/29/17 07:18 [place] % (Auto) 7.2 % (1.0-6.0) H 05/29/17 07:18 Eos % (Auto) 2.2 % (1.5-5.0) 05/29/17 07:18 Baso % (Auto) 0.1 % (0.0-3.0) 05/29/17 07:18 Gran # 3.90 (1.4-6.5) 05/29/17 07:18 Lymph # 2.4 (1.2-3.4) 05/29/17 07:18 [place] # 0.5 (0.1-0.6) 05/29/17 07:18 Eos # 0.2 (0.0-0.7) 05/29/17 07:18 Baso # 0.01 K/mm3 (0.0-2.0) 05/29/17 07:18 PT 10.4 Seconds (9.9-11.8) 05/27/17 16:30 INR 0.96 (0.93-1.08) 05/27/17 16:30 APTT 28.9 Seconds (23.7-30.8) 05/27/17 16:30 D-Dimer, Quantitative 0.50 mg/L FEU (0-0.50) 05/27/17 16:30 Sodium 138 mmol/L (132-148) 05/29/17 07:18 Potassium 4.0 mmol/L (3.6-5.0) 05/29/17 07:18 Chloride 102 mmol/L (98-107) 05/29/17 07:18 Carbon Dioxide 29 mmol/L (21-33) 05/29/17 07:18 Anion Gap 11 (10-20) 05/29/17 07:18 BUN 19 mg/dL (7-21) 05/29/17 07:18 Creatinine 0.7 mg/dL (0.5-1.4) 05/29/17 07:18 Est GFR ( Amer) > 60 05/29/17 07:18 Est GFR (Non-Af Amer) > 60 05/29/17 07:18 POC Glucose (mg/dL) 67 mg/dL (65-110) 05/29/17 11:28 Random Glucose 97 mg/dL (70-110) 05/29/17 07:18 Calcium 9.1 mg/dL (8.4-10.5) 05/29/17 07:18 Total Bilirubin 0.6 mg/dL (0.2-1.3) 05/29/17 07:18 AST 28 U/L (15-39) 05/29/17 07:18 ALT 26 U/L (7-56) 05/29/17 07:18 Alkaline Phosphatase 68 U/L (38-133) 05/29/17 07:18 Lactate Dehydrogenase 406 U/L (333-699) 05/28/17 05:20 Total Creatine Kinase 136 U/L (35-230) 05/28/17 05:20 Troponin I < 0.01 ng/mL 05/29/17 09:23 Total Protein 6.6 g/dL (5.8-8.3) 05/29/17 07:18 Albumin 3.6 g/dL (3.0-4.8) 05/29/17 07:18 Globulin 3.1 gm/dL 05/29/17 07:18 Albumin/Globulin Ratio 1.2 (1.1-1.8) 05/29/17 07:18 Triglycerides 127 mg/dL (35-160) 05/28/17 05:20 Cholesterol 150 mg/dL (130-200) 05/28/17 05:20 LDL Cholesterol Direct 73 mg/dL (0-129) 05/28/17 05:20 HDL Cholesterol 50 mg/dL (29-60) 05/28/17 05:20 Thyroxine (T4) 7.4 ug/dL (5.5-11.0) 05/29/17 09:23 Total T3 1.21 ng/mL (0.97-1.69) 05/28/17 06:00 TSH 3rd Generation 0.4 MIU/ml (0.46-4.68) L 05/28/17 05:20 Urine Color Yellow (YELLOW) 05/28/17 19:50 Urine Appearance Clear (CLEAR) 05/28/17 19:50 Urine pH 7.5 (4.7-8.0) 05/28/17 19:50 Ur Specific [place] 1.015 (1.005-1.035) 05/28/17 19:50 Urine Protein Negative mg/dL (<30 mg/dL) 05/28/17 19:50 Urine Glucose (UA) Negative mg/dL (NEGATIVE) 05/28/17 19:50 Urine Ketones Negative mg/dL (NEGATIVE) 05/28/17 19:50 Urine Blood Negative (NEGATIVE) 05/28/17 19:50 Urine Nitrate Negative (NEGATIVE) 05/28/17 19:50 Urine Bilirubin Negative (NEGATIVE) 05/28/17 19:50 Urine Urobilinogen 1.0 E.U./dL (<1 E.U./dL) H 05/28/17 19:50 Ur Leukocyte Esterase Negative Dejuan/uL (NEGATIVE) 05/28/17 19:50 Urine Opiates Screen Negative (NEGATIVE) 05/28/17 19:50 Urine Methadone Screen Negative (NEGATIVE) 05/28/17 19:50 Ur Barbiturates Screen Positive (NEGATIVE) H 05/28/17 19:50 Ur Phencyclidine Scrn Negative (NEGATIVE) 05/28/17 19:50 Ur Amphetamines Screen Negative (NEGATIVE) 05/28/17 19:50 U Benzodiazepines Scrn Negative (NEGATIVE) 05/28/17 19:50 U Oth Cocaine Metabols Negative (NEGATIVE) 05/28/17 19:50 U Cannabinoids Screen Negative (NEGATIVE) 05/28/17 19:50 - Hospital Course Hospital Course: Patient is a 51 year old female with a past medical history of DM, Bipolar, history of unspecified tumor, and anxiety who presented to [facility] emergency department for chest pain and severe migraine. An EKG was done in the ED showing no acute ST segment elevations or depression, nor T wave inversions. Serial troponins were preformed and were negative x3. Cardiology was consulted and an echocardiogram was preformed. Cardiology evaluated the patient and assessed her to be medically stable for outpatient follow up and stress test. During her stay the patient continued to complain of headache and neck tenderness. A CT head in the ED showed no acute intracranial pathology and a cervical spine x-ray was preformed showed mild multilevel degenerative disc disease. The patient denied persistence of her chest pain symptoms and was found to be hemodynamically stable for discharge for outpatient follow up. - Date & Time of H&P Date of H&P: 05/27/17 Time of H&P: 20:55 Discharge Exam - Head Exam Head Exam: ATRAUMATIC, NORMAL INSPECTION, NORMOCEPHALIC - Eye Exam Eye Exam: EOMI, PERRL - ENT Exam ENT Exam: Mucous Membranes Moist, Normal Exam - Respiratory Exam Respiratory Exam: Clear to PA & Lateral, NORMAL BREATHING PATTERN - Cardiovascular Exam Cardiovascular Exam: REGULAR RHYTHM, +S1, +S2 - GI/Abdominal Exam GI & Abdominal Exam: Normal Bowel Sounds, Unremarkable - Extremities Exam Extremities exam: full ROM, pedal pulses present - Neurological Exam Neurological exam: Alert, CN II-XII Intact, Oriented x3, Reflexes Normal - Psychiatric Exam Psychiatric exam: Normal Affect, Normal Mood - Skin Skin Exam: Normal Color, Warm Discharge Plan - Discharge Medications Prescriptions: Carvedilol [Coreg] 3.125 mg PO BID #60 tab Insulin Aspar/Insulin N 70/30 [Novolog MIX 70/30-U/ML 3ML] 15 ml SC BID #60 rivera LORazepam [Ativan] 0.5 mg PO BID #6 tab Pantoprazole Sodium [Protonix] 40 mg PO DAILY #30 tablet.dr - Follow Up Plan Condition: GOOD Disposition: HOME/ ROUTINE Instructions: Chest Pain (DC), Chest Pain (GEN), Migraine Headache (DC) Additional Instructions: Discharge patient home today. Continue all home medications as previously prescribed. 1. Follow up with [facility] in 3 days. 2. Follow up with cardiology (heart doctor), Dr. Aguilar in 1 week. 3. Follow up with [facility] in 1 week. Referrals: PCP,NO [Primary Care Provider] - <Camille Trejo - Last Filed: 05/29/17 15:54> Provider - Provider Date of Admission: 05/27/17 17:39 Attending physician: Camille Trejo MD Primary care physician: NO PRIMARY CARE PROVIDER Hospital Course - Lab Results Lab Results: Most Recent Lab Values WBC 7.0 10^3/ul (4.5-11.0) 05/29/17 07:18 RBC 4.16 10^6/uL (3.5-6.1) 05/29/17 07:18 Hgb 12.2 gm/dL (12.0-16.0) 05/29/17 07:18 Hct 36.7 % (36.0-48.0) 05/29/17 07:18 MCV 88.2 fL (80.0-105.0) 05/29/17 07:18 MCH 29.3 pg (25.0-35.0) 05/29/17 07:18 MCHC 33.2 g/dl (31.0-37.0) 05/29/17 07:18 RDW 13.3 % (11.5-14.5) 05/29/17 07:18 Plt Count 224 10^3/uL (120.0-450.0) 05/29/17 07:18 MPV 9.0 fl (7.0-11.0) 05/29/17 07:18 Gran % 56.0 % (50.0-68.0) 05/29/17 07:18 Lymph % (Auto) 34.5 % (22.0-35.0) 05/29/17 07:18 [place] % (Auto) 7.2 % (1.0-6.0) H 05/29/17 07:18 Eos % (Auto) 2.2 % (1.5-5.0) 05/29/17 07:18 Baso % (Auto) 0.1 % (0.0-3.0) 05/29/17 07:18 Gran # 3.90 (1.4-6.5) 05/29/17 07:18 Lymph # 2.4 (1.2-3.4) 05/29/17 07:18 [place] # 0.5 (0.1-0.6) 05/29/17 07:18 Eos # 0.2 (0.0-0.7) 05/29/17 07:18 Baso # 0.01 K/mm3 (0.0-2.0) 05/29/17 07:18 PT 10.4 Seconds (9.9-11.8) 05/27/17 16:30 INR 0.96 (0.93-1.08) 05/27/17 16:30 APTT 28.9 Seconds (23.7-30.8) 05/27/17 16:30 D-Dimer, Quantitative 0.50 mg/L FEU (0-0.50) 05/27/17 16:30 Sodium 138 mmol/L (132-148) 05/29/17 07:18 Potassium 4.0 mmol/L (3.6-5.0) 05/29/17 07:18 Chloride 102 mmol/L (98-107) 05/29/17 07:18 Carbon Dioxide 29 mmol/L (21-33) 05/29/17 07:18 Anion Gap 11 (10-20) 05/29/17 07:18 BUN 19 mg/dL (7-21) 05/29/17 07:18 Creatinine 0.7 mg/dL (0.5-1.4) 05/29/17 07:18 Est GFR ( Amer) > 60 05/29/17 07:18 Est GFR (Non-Af Amer) > 60 05/29/17 07:18 POC Glucose (mg/dL) 67 mg/dL (65-110) 05/29/17 11:28 Random Glucose 97 mg/dL (70-110) 05/29/17 07:18 Calcium 9.1 mg/dL (8.4-10.5) 05/29/17 07:18 Total Bilirubin 0.6 mg/dL (0.2-1.3) 05/29/17 07:18 AST 28 U/L (15-39) 05/29/17 07:18 ALT 26 U/L (7-56) 05/29/17 07:18 Alkaline Phosphatase 68 U/L (38-133) 05/29/17 07:18 Lactate Dehydrogenase 406 U/L (333-699) 05/28/17 05:20 Total Creatine Kinase 136 U/L (35-230) 05/28/17 05:20 Troponin I < 0.01 ng/mL 05/29/17 09:23 Total Protein 6.6 g/dL (5.8-8.3) 05/29/17 07:18 Albumin 3.6 g/dL (3.0-4.8) 05/29/17 07:18 Globulin 3.1 gm/dL 05/29/17 07:18 Albumin/Globulin Ratio 1.2 (1.1-1.8) 05/29/17 07:18 Triglycerides 127 mg/dL (35-160) 05/28/17 05:20 Cholesterol 150 mg/dL (130-200) 05/28/17 05:20 LDL Cholesterol Direct 73 mg/dL (0-129) 05/28/17 05:20 HDL Cholesterol 50 mg/dL (29-60) 05/28/17 05:20 Thyroxine (T4) 7.4 ug/dL (5.5-11.0) 05/29/17 09:23 Total T3 1.21 ng/mL (0.97-1.69) 05/28/17 06:00 TSH 3rd Generation 0.4 MIU/ml (0.46-4.68) L 05/28/17 05:20 Urine Color Yellow (YELLOW) 05/28/17 19:50 Urine Appearance Clear (CLEAR) 05/28/17 19:50 Urine pH 7.5 (4.7-8.0) 05/28/17 19:50 Ur Specific [place] 1.015 (1.005-1.035) 05/28/17 19:50 Urine Protein Negative mg/dL (<30 mg/dL) 05/28/17 19:50 Urine Glucose (UA) Negative mg/dL (NEGATIVE) 05/28/17 19:50 Urine Ketones Negative mg/dL (NEGATIVE) 05/28/17 19:50 Urine Blood Negative (NEGATIVE) 05/28/17 19:50 Urine Nitrate Negative (NEGATIVE) 05/28/17 19:50 Urine Bilirubin Negative (NEGATIVE) 05/28/17 19:50 Urine Urobilinogen 1.0 E.U./dL (<1 E.U./dL) H 05/28/17 19:50 Ur Leukocyte Esterase Negative Dejuan/uL (NEGATIVE) 05/28/17 19:50 Urine Opiates Screen Negative (NEGATIVE) 05/28/17 19:50 Urine Methadone Screen Negative (NEGATIVE) 05/28/17 19:50 Ur Barbiturates Screen Positive (NEGATIVE) H 05/28/17 19:50 Ur Phencyclidine Scrn Negative (NEGATIVE) 05/28/17 19:50 Ur Amphetamines Screen Negative (NEGATIVE) 05/28/17 19:50 U Benzodiazepines Scrn Negative (NEGATIVE) 05/28/17 19:50 U Oth Cocaine Metabols Negative (NEGATIVE) 05/28/17 19:50 U Cannabinoids Screen Negative (NEGATIVE) 05/28/17 19:50 Attending/Attestation - Attestation I have personally seen and examined this patient.: Yes I have fully participated in the care of the patient.: Yes I have reviewed all pertinent clinical information, including history, physical exam and plan: Yes Notes (Text): 05/29/17 15:53 attending note; Patient seen and examined with resident. Patient is a 51-year-old female admitted with severe migraine/chest pain. CT head is negative. Started on Fioricet for migraines. Chest pain; EKG is normal. Cardiac enzymes x4 negative. Echo showed normal LV function. Cardiology evaluation with Dr. Aguilar appreciated. Epigastric discomfort; possible gastritis. continue Protonix. diabetes; continue insulin. Bipolar disorder; continue Cymbalta and hydroxyzine. Advised to follow-up with [facility]. upon discharge the patient will follow-up with [facility] and [facility]. diagnosis; Migraine Atypical chest pain Anxiety/depression Diabetes
--- NOTE | 2017-05-29 15:51 | PN ---
DATE: SUBJECTIVE: The patient denies any chest pain or shortness of breath. PHYSICAL EXAMINATION: VITAL SIGNS: Blood pressure 90/58, heart rate 68, temperature 97.5, respiration 18. HEENT: Normocephalic. CHEST: Clear. HEART: S1 and S2 regular. EXTREMITIES: No edema. LABORATORY DATA: Today's hemoglobin, hematocrit, white count and platelet count are within normal limits. Today's SMA-7 is within normal limits. All troponins are negative. Urine drug screen is positive for barbiturates, which could be related to the patient's migraine headache medications. Repeat EKG today reveals normal sinus rhythm, heart rate of 61. Preliminary echo report is consistent with normal ejection fraction. ASSESSMENT: 1. Chest pain, myocardial infarction rule out. 2. Diabetes mellitus. 3. Bronchial asthma. CONDITIONS: The patient can be discharged on medical management including aspirin, Coreg and albuterol inhaler. The case was discussed with the primary physician Dr. Trejo. Andrew Aguilar MD
--- NOTE | 2017-05-30 08:36 | CARD ---
APPROVED REPORT EXAM: Two-dimensional and M-mode echocardiogram with Doppler and color Doppler. Other Information Quality : GoodRhythm : INDICATION Chest Pain 2D DIMENSIONS IVSd0.9 (0.7-1.1cm)LVDd4.2 (3.9-5.9cm) PWd0.9 (0.7-1.1cm)LVDs2.4 (2.5-4.0cm) FS (%) 43.7 %LVEF (%)75.0 (>50%) M-Mode DIMENSIONS Left Atrium (MM)3.00 (2.5-4.0cm)Aortic Root2.60 (2.2-3.7cm) Aortic Cusp Exc.1.80 (1.5-2.0cm) Aortic Valve AoV Peak Qfwrvtwq647.0cm/s Mitral Valve MV E Jmhpjywv65.5cm/sMV A Ydskmawy94.1cm/sE/A ratio1.2 TDI Lateral E' Peak V11.10cm/sMedial E' Peak V7.90cm/sE/Lateral E'7.2 E/Medial E'10.1 Tricuspid Valve TR Peak Fmeouahn186mk/sRAP [id number] Peak Gr.21mmHg [id number] LEFT VENTRICLE The left ventricle is normal size. There is normal left ventricular wall thickness. The left ventricular function is normal. The left ventricular ejection fraction is within the normal range. There is normal LV segmental wall motion. RIGHT VENTRICLE The right ventricle is normal size. ATRIA The left atrium size is normal. The right atrium size is normal. The interatrial septum is intact with no evidence for an atrial septal defect. AORTIC VALVE The aortic valve is normal in structure. MITRAL VALVE The mitral valve is normal in structure. Mitral regurgitation is trace. TRICUSPID VALVE The tricuspid valve is normal in structure. There is trace tricuspid regurgitation. PULMONIC VALVE The pulmonic valve is not well visualized. GREAT VESSELS The aortic root is normal in size. PERICARDIAL EFFUSION There is no pericardial effusion. <Conclusion> The left ventricle is normal size. There is normal left ventricular wall thickness. The left ventricular function is normal.
--- NOTE | 2017-05-30 09:25 | CARD ---
APPROVED REPORT EKG Measurement Heart [id number] <Conclusion> Normal sinus rhythm Normal ECG
== END 2017-05-29 14:56 | disposition home or self-care (01) ==
LOC: ED 15:44 → ERH 17:39 → 2RNO 05-28 00:02
PROVIDERS: ADMIT Internal Medicine; ATTEND Internal Medicine
DX: G43.909 Migraine, unspecified, not intractable, without status migrainosus (principal); R07.89 Other chest pain; M50.322 Other cervical disc degeneration at C5-C6 level; E11.9 Type 2 diabetes mellitus without complications; F31.9 Bipolar disorder, unspecified; F41.9 Anxiety disorder, unspecified; J45.909 Unspecified asthma, uncomplicated; F17.210 Nicotine dependence, cigarettes, uncomplicated; Z23 Encounter for immunization; Z90.710 Acquired absence of both cervix and uterus; Z90.49 Acquired absence of other specified parts of digestive tract
CPT/HCPCS: 36415; 70450; 71010; 72040; 80048; 80053; 80061; 80324; 80345; 80346; 80349; 80353; 80358; 80361; 81003; 82550; 82948; 83615; 83992; 84436; 84443; 84480; 84484; 85025; 85027; 85378; 85610; 85730; 87086; 90471; 90732; 93005; 93306; 94640; 96374; 96376; 99285; C9113; G0378

== ENCOUNTER 2017-06-13 11:22 | Emergency (ER) | payer OTHER ==
[2017-06-13 11:22] VITALS: BMI 21.9
[2017-06-13 11:51] VITALS: TEMP 98.9
[2017-06-13 11:53] VITALS: RESP 18; O2SAT 98
--- NOTE | 2017-06-13 12:00 | ED PDOC ---
Arrival/HPI - General Chief Complaint: Abnormal Skin Integrity Time Seen by Provider: 06/13/17 11:29 Historian: Patient - History of Present Illness Narrative History of Present Illness (Text): 06/13/17 12:03 A 51 year old female current smoker, whose past medical history includes diabetes mellitus, presents to the emergency department after having "hives" last night. The patient reports she began to feel itchy 2 days ago, but associated the itchiness to the weather. Last night, the patient began to see "hives", which she never felt before. The hives began on her left arm and to her chest, neck, face, and back. She states she putting rubbing alcohol on them and then they went away. The patient denies any "hives" this morning, but still continues to have the itching sensation. The patient denies any chest pain, back pain, fever, headache, shortness of breath, cough, vision changes, hearing changes, abdominal pain, nausea, urinary output changes, or any other complaints at this time. The patient denies any new exposures to cause an allergic reaction. Time/Duration: < week (2 days) Symptom Course: Intermittent Quality: Other (itchy) Activities at Onset: Light Context: Home Past Medical History - Provider Review Nursing Documentation Reviewed: Yes - Infectious Disease Hx of Infectious Diseases: None - Tetanus Immunization Tetanus Immunization: Unknown - Reproductive Menopause: Yes - Cardiac Hx Cardiac Disorders: Yes Hx Angina: Yes - Pulmonary Hx Respiratory Disorders: No - Neurological Hx Neurological Disorder: Yes Hx Migraine: Yes - HEENT Hx HEENT Disorder: No - Renal Hx Renal Disorder: No - Endocrine/Metabolic Hx Endocrine Disorders: Yes Hx Diabetes Mellitus Type 1: Yes - Hematological/Oncological Hx Blood Disorders: No - Integumentary Hx Dermatological Disorder: No - Musculoskeletal/Rheumatological Hx Falls: No - Gastrointestinal Hx Gastrointestinal Disorders: No - Genitourinary/Gynecological Hx Genitourinary Disorders: No - Psychiatric Hx Psychophysiologic Disorder: Yes Hx Anxiety: Yes Hx Bipolar Disorder: Yes (has not taken meds x 5 months) Hx Schizophrenia: Yes Hx Substance Use: No - Surgical History Hx Appendectomy: Yes Hx Cholecystectomy: Yes Hx Hysterectomy: Yes - Anesthesia Hx Anesthesia: Yes Hx Anesthesia Reactions: No - Suicidal Assessment Feels Threatened In Home Enviroment: No Family/Social History - Physician Review Nursing Documentation Reviewed: Yes Family/Social History: Unknown Family HX Smoking Status: Heavy Smoker > 10 Cigarettes Daily Hx Alcohol Use: No Hx Substance Use: No Allergies/Home Meds Allergies/Adverse Reactions: Allergies aspirin Allergy (Verified 03/01/17 19:46) SHORTNESS OF BREATH Home Medications: Home Meds Medication Instructions Recorded Confirmed LORazepam [Ativan] 1 mg PO BID 06/13/17 06/13/17 Omeprazole 20 mg PO BID 06/13/17 06/13/17 Review of Systems - Review of Systems Constitutional: absent: Fevers Eyes: absent: Vision Changes ENT: absent: Hearing Changes Respiratory: absent: SOB Cardiovascular: absent: Chest Pain Gastrointestinal: absent: Abdominal Pain, Nausea Genitourinary Female: absent: Urine Output Changes Musculoskeletal: absent: Back Pain Skin: Rash, Pruritis. absent: Laceration, Abscess, Ulcer, Cellulitis Neurological: Headache. absent: Dizziness, Focal Weakness Endocrine: absent: Polyuria, Polydipsia Physical Exam - Physical Exam Narrative Physical Exam (Text): 06/13/17 12:16 Head: Atraumatic. Normocephalic. Eyes: PERRL. EOMI. Conjunctivae are not pale. ENT: Mucous membranes are moist and intact. Oropharynx is clear and symmetric. No angioedema. Neck: Supple. Full ROM. No JVD. No lymphadenopathy. Cardiovascular: Regular rate. Regular rhythm. No murmurs, rubs, or gallops. Distal pulses are 2+ and symmetric. Pulmonary/Chest: No evidence of respiratory distress. Clear to auscultation bilaterally. No wheezing, rales or rhonchi. Abdominal: Soft and non-distended. There is no tenderness. No rebound, guarding, or rigidity. No organomegaly. Good bowel sounds. Back: No CVA tenderness. Extremities: No edema. No cyanosis. No clubbing. Full range of motion in all extremities. No calf tenderness. Skin: Skin is warm and dry. No petechiae. No purpura. No vesicular lesions. No erythema. No joint pain. No edema. No angioedema. Neurological: Alert, awake, and oriented to person, place, time, and situation. Normal speech. Motor and sensory intact. Cranial nerves intact. Psychiatric: Good eye contact. Normal interaction, affect, and behavior. Vital Signs Reviewed: Yes Vital Signs Temp Pulse Resp BP Pulse Ox 06/13/17 14:00 75 18 110/69 98 06/13/17 12:45 79 18 108/65 98 06/13/17 11:52 98.9 F 86 18 106/66 98 06/13/17 11:48 98.9 F 86 16 106/66 99 Temperature: Afebrile Blood Pressure: Normal Pulse: Regular Respiratory Rate: Normal Appearance: Positive for: Well-Appearing, Non-Toxic, Uncomfortable Pain Distress: None Mental Status: Positive for: Alert and Oriented X 3 Medical Decision Making ED Course and Treatment: 06/13/17 12:17 Impression: A 51 year old female with itchiness and "hives". On exam, she is itchy but no rash noted. NO joint pain. No respiratory distress. Differential Diagnosis included but are not limited to: Allergic reaction vs. Hives Plan: -- Pepcid, Benadryl -- Reassess and disposition Prior Visits: Notes and results from previous visits were reviewed. The patient was last see in the emergency department on 05/27/17 for chest pain. The patient was hospitalized. Progress Notes: Patient with mild improvement after pepcid and benadryl. As she is diabetic, I have discussed with her side effects/risks of steroid use prior to ordering oral prednisone as itching persisted. 06/13/17 14:24 Upon Re-evaluation the patient's itching has resolved with no noted signs of rash and respiratory distress. Patient will be discharged with a Benadryl prescription. I have advised the patient to not take the Benadryl with her Ativan. Suspect possible allergic reaction. Has mild headache on re-evaluation which she states is chronic. Neuro intact. - Medication Orders Current Medication Orders: Discontinued Medications Acetaminophen (Tylenol 325mg Tab) 650 mg PO ONCE STA Stop: 06/13/17 14:17 Last Admin: 06/13/17 14:29 Dose: 650 mg Diphenhydramine HCl (Benadryl) 50 mg PO STAT STA Stop: 06/13/17 11:57 Last Admin: 06/13/17 12:11 Dose: 50 mg Famotidine (Pepcid) 20 mg PO STAT STA Stop: 06/13/17 11:57 Last Admin: 06/13/17 12:11 Dose: 20 mg Prednisone (Prednisone Tab) 60 mg PO STAT ONE Stop: 06/13/17 13:01 Last Admin: 06/13/17 13:10 Dose: 60 mg - Scribe Statement The provider has reviewed the documentation as recorded by the Terrance Gu Provider Ortizibe Attestation: All medical record entries made by the Ortizibe were at my direction and personally dictated by me. I have reviewed the chart and agree that the record accurately reflects my personal performance of the history, physical exam, medical decision making, and the department course for this patient. I have also personally directed, reviewed, and agree with the discharge instructions and disposition. Disposition/Present on Arrival - Present on Arrival Any Indicators Present on Arrival: No History of DVT/PE: No History of Uncontrolled Diabetes: No Urinary Catheter: No History of Decub. Ulcer: No History Surgical Site Infection Following: None - Disposition Have Diagnosis and Disposition been Completed?: Yes Diagnosis: Urticaria Disposition: HOME/ ROUTINE Disposition Time: 14:00 Patient Plan: Discharge Condition: GOOD Discharge Instructions (ExitCare): Urticaria (ED) Additional Instructions: Take Benadryl every 6 hours as needed for itching. Use with caution as may cause drowsiness. For any return of rash, any pain, any fever, any swelling, any numbness or weakness, any persistent or worsening of symptoms, get rechecked. Follow-up with your physician tomorrow for re-evaluation of symptoms. Do not drive or operate heavy machinery while taking Benadryl. Do not take Benadryl with your Ativan medication. Prescriptions: DiphenhydrAMINE [Benadryl] 25 mg PO Q6 PRN #10 cap PRN Reason: Itching / Pruritus Referrals: Samara Levin MD [Primary Care Provider] - Follow up with primary Forms: [facility] (Danish), WORK NOTE
[2017-06-13 14:01] VITALS: BP 110/69; PULSE 75
== END 2017-06-13 14:46 | disposition home or self-care (01) ==
LOC: ED 11:22
DX: L50.9 Urticaria, unspecified (principal)

== ENCOUNTER 2018-10-29 16:33 | Inpatient (IN) | payer MEDICAID, OTHER ==
--- NOTE | 2018-10-29 17:49 | ED PDOC ---
Arrival/HPI - General Chief Complaint: Back Pain Time Seen by Provider: 10/29/18 16:49 - History of Present Illness Narrative History of Present Illness (Text): 53 year old F c Past medical history diabetes, bipolar disorder p/w R flank pain x 3 days. Reports pain in the R flank, associated with cough, and fever. Denies vomiting, dyspnea, dysuria, diarrhea. Past Medical History - Infectious Disease Hx of Infectious Diseases: None - Tetanus Immunization Tetanus Immunization: Unknown - Cardiac Hx Cardiac Disorders: Yes (denies mi) Hx Angina: Yes Hx Hypertension: Yes Hx Peripheral Edema: Yes (+1 ble pitting) - Pulmonary Hx Respiratory Disorders: No - Neurological Hx Neurological Disorder: Yes Hx Migraine: Yes - HEENT Hx HEENT Disorder: No - Renal Hx Renal Disorder: No - Endocrine/Metabolic Hx Endocrine Disorders: Yes Hx Diabetes Mellitus Type 2: Yes - Hematological/Oncological Hx Blood Disorders: No - Integumentary Hx Dermatological Disorder: No - Musculoskeletal/Rheumatological Hx Falls: No - Gastrointestinal Hx Gastrointestinal Disorders: No - Genitourinary/Gynecological Hx Genitourinary Disorders: No - Psychiatric Hx Psychophysiologic Disorder: Yes Hx Anxiety: Yes Hx Bipolar Disorder: Yes (has not taken meds x 5 months) Hx Panic Disorder: Yes Hx Schizophrenia: Yes Hx Substance Use: No - Surgical History Hx Appendectomy: Yes Hx Cardiac Catheterization: Yes Hx Cholecystectomy: Yes Hx Coronary Stent: Yes Hx Hysterectomy: Yes - Anesthesia Hx Anesthesia: Yes Hx Anesthesia Reactions: No Hx Malignant Hyperthermia: No - Suicidal Assessment Feels Threatened In Home Enviroment: No Family/Social History Family/Social History: No Known Family HX Smoking Status: Light Smoker < 10 Cigarettes Daily Hx Alcohol Use: No Hx Substance Use: No Allergies/Home Meds Allergies/Adverse Reactions: Allergies aspirin Allergy (Verified 08/30/17 13:47) SHORTNESS OF BREATH Review of Systems - Physician Review All systems were reviewed & negative as marked: Yes - Review of Systems Respiratory: absent: SOB Gastrointestinal: absent: Vomiting Physical Exam - Physical Exam Narrative Physical Exam (Text): Gen: NAD Head: NC/AT Eyes: PERRL ENT: MMM Neck: Supple Chest: No tenderness CV: Regular rate Lungs: CTA b/l Abd: RUQ tenderness Back: No CVA tenderness Extremities: No edema or tenderness Skin: No rash Neuro: Alert, no focal deficit Vital Signs Temp Pulse Resp BP Pulse Ox 10/29/18 16:33 100.1 F H 90 18 106/67 96 Medical Decision Making ED Course and Treatment: Pending CT. Signed out to ED night team. - RAD Interpretation Radiology Orders: 10/29/18 17:43 CHEST TWO VIEWS (PA/LAT) [RAD] Stat 10/29/18 17:47 ABD & PELVIS IV CONTRAST ONLY [CT] Stat Disposition/Present on Arrival - Present on Arrival Any Indicators Present on Arrival: No History of DVT/PE: No History of Uncontrolled Diabetes: No Urinary Catheter: No History of Decub. Ulcer: No History Surgical Site Infection Following: None - Disposition Have Diagnosis and Disposition been Completed?: No Diagnosis: Flank pain Disposition Time: 19:00 Condition: STABLE
[2018-10-29 18:30] LABS: PH,URINE 6.5 (4.7-8.0); URINE BILIRUBIN NEGATIVE (NEGATIVE); URINE BLOOD NEGATIVE (NEGATIVE); URINE GLUCOSE (UA) NEGATIVE (NEGATIVE); URINE LEUKOCYTE ESTERASE NEGATIVE Leu/uL (NEGATIVE); URINE PROTEIN NEGATIVE mg/dL (<30 mg/dL)
[2018-10-29 18:31] LABS: URINE APPEARANCE CLEAR (CLEAR); URINE COLOR YELLOW (YELLOW)
[2018-10-29 19:05] LABS: BASO # 0.01 K/mm3 (0.0-2.0); BASO % 0.1 % (0.0-3.0); EOS % 0.1 % (1.5-5.0); GRAN # 9.54 (1.4-6.5); GRAN % 74.1 % (50.0-68.0); HEMOGLOBIN 11.3 g/dL (12.0-16.0); LYMPH # 2.2 (1.2-3.4); LYMPH % 17.2 % (22.0-35.0); MEAN CORPUSCULAR HGB CONC 32.6 g/dl (31.0-37.0); MEAN PLATELET VOLUME 8.8 fl (7.0-11.0); MONO # 1.1 (0.1-0.6); MONO % 8.5 % (1.0-6.0); RBC 3.9 10^6/uL (3.5-6.1); RED CELL DISTRIBUTION WIDTH 13.5 % (11.5-14.5); WHITE BLOOD COUNT 12.9 10^3/uL (4.5-11.0)
--- NOTE | 2018-10-29 19:07 | ED PDOC ---
Physical Exam Vital Signs Reviewed: Yes Vital Signs Temp Pulse Resp BP Pulse Ox 10/29/18 18:58 98.6 F 86 18 108/65 96 10/29/18 16:33 100.1 F H 90 18 106/67 96 Temperature: Febrile Blood Pressure: Normal Pulse: Regular Respiratory Rate: Normal Appearance: Positive for: Well-Appearing, Non-Toxic, Comfortable Pain Distress: None Mental Status: Positive for: Alert and Oriented X 3 Medical Decision Making ED Course and Treatment: 10/29/18 19:05 Case endorsed to me by Dr. Rodrigez, pending CT and labs. 10/29/18 22:53 Labs reveal mild leukocytosis with CT a/p showing enteritis and left lobar PNA. Antibiotics ordered. Call placed to Dr. Landis(PCP). 10/29/18 23:[address] Landis(PCP) who accepts patient onto his service. 10/29/18 23:[address] Landis who states he does not take patient's insurance. Patient will be admitted to hospitalist service. Discussed case with Dr. Varinder Squires(house staff) who accepts patient onto hospitalist service. - Lab Interpretations Lab Results: Lab Results 10/29/18 17:57: Urine Color Yellow, Urine Appearance Clear, Urine pH 6.5, Ur Specific [place] 1.015, Urine Protein Negative, Urine Glucose (UA) Negative, Urine Ketones Negative, Urine Blood Negative, Urine Nitrate Negative, Urine Bilirubin Negative, Urine Urobilinogen 4.0 H, Ur Leukocyte Esterase Negative 10/29/18 18:59 10/29/18 18:59 Lab Results 10/29/18 21:37: POC Glucose (mg/dL) 106 10/29/18 18:59: WBC 12.9 H, RBC 3.90, Hgb 11.3 L, Hct 34.7 L, MCV 89.0, MCH 29.0, MCHC 32.6, RDW 13.5, Plt Count 276, MPV 8.8, Gran % 74.1 H, Lymph % (Auto) 17.2 L, [place] % (Auto) 8.5 H, Eos % (Auto) 0.1 L, Baso % (Auto) 0.1, Gran # 9.54 H, Lymph # (Auto) 2.2, [place] # (Auto) 1.1 H, Eos # (Auto) 0.0, Baso # (Auto) 0.01 10/29/18 18:59: Sodium 138, Potassium 3.3 L, Chloride 98, Carbon Dioxide 32, Anion Gap 10, BUN 10, Creatinine 0.6 L, Est GFR ( Amer) > 60, Est GFR (Non-Af Amer) > 60, Random Glucose 114 H, Calcium 9.0, Total Bilirubin 0.4, AST 32, ALT 26, Alkaline Phosphatase 151 H D, Total Protein 6.8, Albumin 3.7, Globulin 3.1, Albumin/Globulin Ratio 1.2, Lipase 97 10/29/18 18:59: Influenza Typ A,B (EIA) Negative for flu a/b 10/29/18 17:57: Urine Color Yellow, Urine Appearance Clear, Urine pH 6.5, Ur Specific [place] 1.015, Urine Protein Negative, Urine Glucose (UA) Negative, Urine Ketones Negative, Urine Blood Negative, Urine Nitrate Negative, Urine Bilirubin Negative, Urine Urobilinogen 4.0 H, Ur Leukocyte Esterase Negative I have reviewed the lab results: Yes - RAD Interpretation Narrative RAD Interpretations (Text): 10/29/18 22:56 CT ABDOMEN and Pelvis 1. Moderate constipation. No evidence of bowel obstruction. 2. Mild enteritis. 3. Infiltrates in the right middle lobe and left lower lobe, suspicious for pneumonia. Radiology Orders: 10/29/18 17:43 CHEST TWO VIEWS (PA/LAT) [RAD] Stat 10/29/18 17:47 ABD & PELVIS IV CONTRAST ONLY [CT] Stat Audio Visual Coordinator: Radiologist - Scribe Statement The provider has reviewed the documentation as recorded by the Scribe Linda Dempsey All medical record entries made by the Scribe were at my direction and personally dictated by me. I have reviewed the chart and agree that the record accurately reflects my personal performance of the history, physical exam, medical decision making, and the department course for this patient. I have also personally directed, reviewed, and agree with the discharge instructions and disposition. Disposition/Present on Arrival - Present on Arrival Any Indicators Present on Arrival: No History of DVT/PE: No History of Uncontrolled Diabetes: No Urinary Catheter: No History of Decub. Ulcer: No History Surgical Site Infection Following: None - Disposition Have Diagnosis and Disposition been Completed?: Yes Diagnosis: PNA (pneumonia) Disposition: HOSPITALIZED Disposition Time: 23:47 Patient Plan: Admission Patient Problems: Current Active Problems Problem Status Onset Flank pain Acute Condition: FAIR
[2018-10-29 19:14] LABS: ALB/GLOB RATIO 1.2 (1.1-1.8); ALBUMIN 3.7 g/dL (3.0-4.8); ALT/SGPT 26 U/L (7-56); AST/SGOT 32 U/L (14-36); BLOOD UREA NITROGEN 10 mg/dL (7-21); GFR NON-AFRICAN AMERICAN > 60; LIPASE 97 U/L (23-300)
[2018-10-29] MEDS ORDERED: Iohexol 350 MG/100 ML VIAL ONE (20:14)
[2018-10-29] MEDS ORDERED: Piperacill/Tazo 4.5gm in NS 4.5 GM/100 ML BAG IVPB STA (22:58)
[2018-10-29] MEDS ORDERED: Vancomycin 1gm in NS 250ml 1 GM/250 ML BAG IVPB STA (22:59)
[2018-10-30 00:26] LABS: VENOUS BLOOD GAS BASE EXCESS 11.2 mmol/L (0.0-2.0); VENOUS BLOOD GAS PO2 67 mm/Hg (30-55)
[2018-10-30] MEDS ORDERED: Potassium Chloride 20 mEq ER Tab PO ONE (00:29)
[2018-10-30] MEDS ORDERED: Sodium Chloride 0.9% 1,000 ML IV SCH (00:30)
[2018-10-30] MEDS ORDERED: Albuterol-Ipratrop 3 mg / 0.5 (3 ml) UD IH PRN ×2 (00:54→12:00)
[2018-10-30] MEDS ORDERED: Albuterol-Ipratrop 3 mg / 0.5 (3 ml) UD IH ONE (00:57)
[2018-10-30] MEDS ORDERED: MethylPREDNISolone 40 mg Vial IVP SCH (01:00)
--- NOTE | 2018-10-30 01:05 | CP.PCM.HP ---
History of Present Illness - History of Present Illness History of Present Illness: 53 year-old female PMHx HTN, HLD, IDDM, COPD, uterine fibroids s/p hysterectomy and ooporectomy, bipolar disorder and anxiety presents to [facility] ED with complaints of 4 days of URI symptoms. Patient reports having a cough and flu-like symptoms for which she was seen at an urgent care and discharged on steroids and PO antibiotics but told to go to the ER if symptoms did not improve. Patient reports that over the past 4 days she has been experiencing fevers with Tmax 100.5F to 100.6F and chills. She also complained of a productive cough with yellow/green phlegm but denied any hemoptysis. Patient also complained of cramping abdominal pain and some nausea and vomiting. She reports lasting having 2 episodes of nonbloody nonbilious emesis prior to coming to the ER but no diarrhea/constipation. She admits to sick contacts at home reporting her grand daughter has similar symptoms. On ROS patient admitted to headache, dizziness but denied any chest pain, palpitations, SOB, pain/swelling in her legs bilater ally. Of note patient recently quit smoking tobacco 1 week ago and had been smoking 2-3ppd since she was 15 years old. She also admits to receiving her flu shot this year. 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 Ubaldo Bran Psych: Dr. Tran at [facility] Pharmacy: [facility] Present on Admission - Present on Admission Any Indicators Present on Admission: No Review of Systems - Review of Systems All systems: reviewed and no additional remarkable complaints except Review of Systems: as per HPI Past Patient History - Infectious Disease Hx of Infectious Diseases: None - Tetanus Immunizations Tetanus Immunization: Unknown - Past Social History Smoking Status: Light Smoker < 10 Cigarettes Daily - CARDIAC Hx Cardiac Disorders: Yes (denies mi) Hx Angina: Yes Hx Hypertension: Yes Hx Peripheral Edema: Yes (+1 ble pitting) - PULMONARY Hx Respiratory Disorders: No - NEUROLOGICAL Hx Neurological Disorder: Yes Hx Migraine: Yes - HEENT Hx HEENT Problems: No - RENAL Hx Chronic Kidney Disease: No - ENDOCRINE/METABOLIC Hx Endocrine Disorders: Yes Hx Diabetes Mellitus Type 2: Yes - HEMATOLOGICAL/ONCOLOGICAL Hx Blood Disorders: No - INTEGUMENTARY Hx Dermatological Problems: No - MUSCULOSKELETAL/RHEUMATOLOGICAL Hx Falls: No - GASTROINTESTINAL Hx Gastrointestinal Disorders: No - GENITOURINARY/GYNECOLOGICAL Hx Genitourinary Disorders: No - PSYCHIATRIC Hx Psychophysiologic Disorder: Yes Hx Anxiety: Yes Hx Bipolar Disorder: Yes (has not taken meds x 5 months) Hx Panic Symptoms: Yes Hx Schizophrenia: Yes Hx Substance Use: No - SURGICAL HISTORY Hx Appendectomy: Yes Hx Cardiac Catheterization: Yes Hx Cholecystectomy: Yes Hx Coronary Stent: Yes Hx Hysterectomy: Yes - ANESTHESIA Hx Anesthesia: Yes Hx Anesthesia Reactions: No Hx Malignant Hyperthermia: No Meds Allergies/Adverse Reactions: Allergies Allergy/AdvReac Type Severity Reaction Status Date / Time aspirin Allergy SHORTNESS Verified 08/30/17 13:47 OF BREATH Physical Exam - Constitutional Appears: Non-toxic, No Acute Distress - Head Exam Head Exam: ATRAUMATIC, NORMAL INSPECTION, NORMOCEPHALIC - Eye Exam Eye Exam: EOMI, Normal appearance, PERRL. absent: Conjunctival injection, Scleral icterus Pupil Exam: NORMAL ACCOMODATION - ENT Exam ENT Exam: Mucous Membranes Dry Additional comments: poor dentition - Neck Exam Neck exam: Positive for: Full Rom. Negative for: Lymphadenopathy - Respiratory Exam Respiratory Exam: Decreased Breath Sounds (b/l), NORMAL BREATHING PATTERN. absent: Accessory Muscle Use, Rales, Rhonchi, Wheezes, Respiratory Distress - Cardiovascular Exam Cardiovascular Exam: REGULAR RHYTHM, +S1, +S2 - GI/Abdominal Exam GI & Abdominal Exam: Normal Bowel Sounds, Soft, Tenderness (mild to palpation). absent: Firm, Guarding, Rigid - Rectal Exam Rectal Exam: Deferred - Extremities Exam Extremities exam: Positive for: normal capillary refill, normal inspection, pedal pulses present. Negative for: pedal edema - Back Exam Back exam: NORMAL INSPECTION. absent: rash noted, tenderness - Neurological Exam Neurological exam: Alert, CN II-XII Intact, Oriented x3 - Psychiatric Exam Psychiatric exam: Anxious - Skin Skin Exam: Dry, Intact, Normal Color, Warm Results - Vital Signs Recent Vital Signs: Last Vital Signs Temp 99.6 F 10/30/18 00:17 Pulse 87 10/30/18 00:17 Resp 16 10/30/18 00:17 BP 106/65 10/30/18 00:17 Pulse Ox 96 10/30/18 00:17 - Labs Result Diagrams: 10/29/18 18:59 10/29/18 18:59 Labs: Laboratory Results - last 24 hr 10/29/18 10/29/18 10/29/18 17:57 18:59 18:59 WBC RBC Hgb Hct MCV MCH MCHC RDW Plt Count MPV Gran % Lymph % (Auto) [place] % (Auto) Eos % (Auto) Baso % (Auto) Gran # Lymph # (Auto) [place] # (Auto) Eos # (Auto) Baso # (Auto) pO2 VBG pH VBG pCO2 VBG HCO3 VBG Total CO2 VBG O2 Sat (Calc) VBG Base Excess VBG Potassium Glucose Lactate FiO2 Sodium 138 Potassium 3.3 L Chloride 98 Carbon Dioxide 32 Anion Gap 10 BUN 10 Creatinine 0.6 L Est GFR ( Amer) > 60 Est GFR (Non-Af Amer) > 60 POC Glucose (mg/dL) Random Glucose 114 H Calcium 9.0 Total Bilirubin 0.4 AST 32 ALT 26 Alkaline Phosphatase 151 H D Total Protein 6.8 Albumin 3.7 Globulin 3.1 Albumin/Globulin Ratio 1.2 Lipase 97 Venous Blood Potassium Urine Color Yellow Urine Appearance Clear Urine pH 6.5 Ur Specific [place] 1.015 Urine Protein Negative Urine Glucose (UA) Negative Urine Ketones Negative Urine Blood Negative Urine Nitrate Negative Urine Bilirubin Negative Urine Urobilinogen 4.0 H Ur Leukocyte Esterase Negative Alcohol, Quantitative Influenza Typ A,B (EIA) Negative for flu a/b 10/29/18 10/29/18 10/30/18 18:59 21:37 00:00 WBC 12.9 H RBC 3.90 Hgb 11.3 L Hct 34.7 L MCV 89.0 MCH 29.0 MCHC 32.6 RDW 13.5 Plt Count 276 MPV 8.8 Gran % 74.1 H Lymph % (Auto) 17.2 L [place] % (Auto) 8.5 H Eos % (Auto) 0.1 L Baso % (Auto) 0.1 Gran # 9.54 H Lymph # (Auto) 2.2 [place] # (Auto) 1.1 H Eos # (Auto) 0.0 Baso # (Auto) 0.01 pO2 VBG pH VBG pCO2 VBG HCO3 VBG Total CO2 VBG O2 Sat (Calc) VBG Base Excess VBG Potassium Glucose Lactate FiO2 Sodium Potassium Chloride Carbon Dioxide Anion Gap BUN Creatinine Est GFR ( Amer) Est GFR (Non-Af Amer) POC Glucose (mg/dL) 106 Random Glucose Calcium Total Bilirubin AST ALT Alkaline Phosphatase Total Protein Albumin Globulin Albumin/Globulin Ratio Lipase Venous Blood Potassium Urine Color Urine Appearance Urine pH Ur Specific [place] Urine Protein Urine Glucose (UA) Urine Ketones Urine Blood Urine Nitrate Urine Bilirubin Urine Urobilinogen Ur Leukocyte Esterase Alcohol, Quantitative < 10 Influenza Typ A,B (EIA) 10/30/18 00:05 WBC RBC Hgb Hct MCV MCH MCHC RDW Plt Count MPV Gran % Lymph % (Auto) [place] % (Auto) Eos % (Auto) Baso % (Auto) Gran # Lymph # (Auto) [place] # (Auto) Eos # (Auto) Baso # (Auto) pO2 67 H VBG pH 7.50 H VBG pCO2 46.0 VBG HCO3 35.9 H VBG Total CO2 37.3 H VBG O2 Sat (Calc) 97.2 H VBG Base Excess 11.2 H VBG Potassium 3.3 L Glucose 182 H Lactate 0.8 FiO2 21.0 Sodium 138.0 Potassium Chloride 100.0 Carbon Dioxide Anion Gap BUN Creatinine Est GFR ( Amer) Est GFR (Non-Af Amer) POC Glucose (mg/dL) Random Glucose Calcium Total Bilirubin AST ALT Alkaline Phosphatase Total Protein Albumin Globulin Albumin/Globulin Ratio Lipase Venous Blood Potassium 3.3 L Urine Color Urine Appearance Urine pH Ur Specific [place] Urine Protein Urine Glucose (UA) Urine Ketones Urine Blood Urine Nitrate Urine Bilirubin Urine Urobilinogen Ur Leukocyte Esterase Alcohol, Quantitative Influenza Typ A,B (EIA) Assessment & Plan - Assessment and Plan (Free Text) Assessment: 53 year-old female PMHx HTN, HLD, IDDM, COPD, uterine fibroids s/p hysterectomy and ooporectomy, bipolar disorder and anxiety presents to [facility] ED with complaints of [address] showed evidence of pneumonia. Patient admitted to med/surg for further management. 1. Right middle lobe and Left lower lobe pneumonia- acute 2. Mild Enteritis- acute 3. Hypokalemia- acute 4. Normocytic anemia- acute 5. HTN- chronic 6. HLD- chronic 7. IDDM- chronic 8. COPD- chronic 9. Bipolar disorder- chronic 10. Anxiety- chronic 11. Extensive tobacco use in the past Plan: Patient's blood work, vitals, and imaging on admission noted. F/u repeat VBG, blood cx, urine cx, procalcitonin, and legionella. Patient is flu negative. Continue Vanc and Zosyn for pneumonia and tylenol for temp. Mucinex ordered for congestion. Patient also started on Duoneb as needed in light of COPD history and extensive tobacco use. Enteritis likely viral in nature- will monitor. Patient on full liquids at this time due to abdominal tenderness on physical exam and reported vomiting. Continue fluids at this time. Patient has zofran on board for nausea/vomiting as needed. Hypokalemia likely secondary to vomiting; Potassium repleted- will f/u repeat BMP. Normocytic anemia noted- iron studies ordered which will f/u. Patient has been normotensive since admission- will monitor closely. Patient reports history of HLD and believes she takes Lipitor 40mg hs. Fasting lipid panel ordered for AM labs along with HgbA1c as patient also reports history of IDDM but is uncertain of her home medications. Patient on Accuchecks and low dose RISS at this time. In regards to history of bipolar disorder and anxiety patient could not recall what she takes as mood stabilizers; will have to reach out to pharmacy in the morning to confirm medications. Will continue to monitor patient closely. GI and DVT ppx in place. Discussed with Dr Shaw Lynne PGY3
[2018-10-30 01:55] VITALS: BMI 18.6
[2018-10-30] MEDS ORDERED: Morphine 2 mg/ml ISec IVP ONE (01:59)
[2018-10-30] MEDS: guaiFENesin-DM 600-30 mg ER Tab PO SCH ×3 (02:30→18:22)
[2018-10-30] MEDS: Vancomycin 1gm in NS 250ml 1 GM/250 ML BAG IVPB SCH ×2 (05:32→14:35)
[2018-10-30] MEDS ORDERED: Piperacillin/Tazobact 3.375 gm 100 ML IVPB SCH (06:00)
[2018-10-30] MEDS: Pantoprazole 40 mg EC Tab PO SCH (06:04)
[2018-10-30 07:51] LABS: VENOUS BLOOD GAS PO2 90 mm/Hg (30-55)
[2018-10-30 07:58] LABS: BASO # 0.01 K/mm3 (0.0-2.0); BASO % 0.1 % (0.0-3.0); EOS % 0.2 % (1.5-5.0); GRAN # 8.07 (1.4-6.5); GRAN % 74.6 % (50.0-68.0); HEMOGLOBIN 10.2 g/dL (12.0-16.0); LYMPH # 1.7 (1.2-3.4); LYMPH % 16.1 % (22.0-35.0); MEAN CELL VOLUME 89.3 fl (80.0-105.0); MEAN CORPUSCULAR HEMOGLOBIN 28.7 pg (25.0-35.0); MEAN CORPUSCULAR HGB CONC 32.2 g/dl (31.0-37.0); MEAN PLATELET VOLUME 9.3 fl (7.0-11.0); RBC 3.55 10^6/uL (3.5-6.1); RED CELL DISTRIBUTION WIDTH 13.5 % (11.5-14.5); WHITE BLOOD COUNT 10.8 10^3/uL (4.5-11.0)
[2018-10-30 08:17] LABS: IRON 23 ug/dL (45-180)
[2018-10-30 08:20] LABS: LDL CHOLESTEROL 70 mg/dL (0-129)
[2018-10-30 08:21] LABS: ALBUMIN 3.2 g/dL (3.0-4.8); ALT/SGPT 34 U/L (7-56); AST/SGOT 23 U/L (14-36); BLOOD UREA NITROGEN 8 mg/dL (7-21); CALCIUM 8.5 mg/dL (8.4-10.5); GFR NON-AFRICAN AMERICAN > 60; HDL CHOLESTEROL 34 mg/dL (29-60)
[2018-10-30 08:26] LABS: % IRON SATURATION 11 % (20-55); TOTAL IRON BINDING CAPACITY 215 ug/dL (265-497)
--- NOTE | 2018-10-30 09:08 | CT ---
Date of service: 10/29/2018 PROCEDURE: CT Abdomen and Pelvis with contrast HISTORY: abd pain, flank pain COMPARISON: None. TECHNIQUE: Contrast dose: Radiation dose: Total exam DLP = 225.85 mGy-cm. This CT exam was performed using one or more of the following dose reduction techniques: Automated exposure control, adjustment of the mA and/or kV according to patient size, and/or use of iterative reconstruction technique. FINDINGS: LOWER THORAX: Patchy bilateral left lower lobe and right middle lobe infiltrates LIVER: Unremarkable. No gross lesion or ductal dilatation. GALLBLADDER AND BILE DUCTS: Gallbladder removed PANCREAS: Unremarkable. No gross lesion or ductal dilatation. SPLEEN: Unremarkable. ADRENALS: Unremarkable. No mass. KIDNEYS AND URETERS: Unremarkable. No hydronephrosis. No solid mass. Nonobstructing 4 mm stone in the upper pole of the left kidney VASCULATURE: Unremarkable. No aortic aneurysm. No aortic atherosclerotic calcification or mural plaque present. BOWEL: Unremarkable. No obstruction. No gross mural thickening. Moderate constipation APPENDIX: Normal appendix. PERITONEUM: Unremarkable. No free fluid. No free air. LYMPH NODES: Unremarkable. No enlarged lymph nodes. BLADDER: Unremarkable. REPRODUCTIVE: Unremarkable. BONES: No acute fracture. OTHER FINDINGS: The report concurs with the preliminary [facility] report IMPRESSION: Multi focal infiltrates in the right middle lobe and left lower lobe consistent with pneumonia
[2018-10-30] MEDS ORDERED: Potassium Chloride 20 mEq ER Tab PO STA (09:15)
[2018-10-30] MEDS: cefTRIAXone 1 gm 1 GM/100 ML BAG IVPB SCH (09:42)
[2018-10-30] MEDS: Insulin Lispro (humaLOG) LOW Coverage SC SCH ×3 (09:42→18:22)
[2018-10-30] MEDS ORDERED: Ergocalciferol 50,000 Intl Units Cap PO SCH (10:00)
--- NOTE | 2018-10-30 10:04 | RAD ---
Date of service: 10/29/2018 HISTORY: cough COMPARISON: CT scan same day TECHNIQUE: Chest PA and lateral FINDINGS: LUNGS: There is an infiltrate in the medial aspect of the left lower lobe and a patchy linear infiltrate in the right middle lobe consistent with pneumonia PLEURA: No significant pleural effusion identified. No pneumothorax apparent. CARDIOVASCULAR: No aortic atherosclerotic calcification present. Normal cardiac size. No pulmonary vascular congestion. OSSEOUS STRUCTURES: No significant abnormalities. VISUALIZED UPPER ABDOMEN: Normal. OTHER FINDINGS: None. IMPRESSION: There is an infiltrate in the medial aspect of the left lower lobe and a patchy linear infiltrate in the right middle lobe consistent with pneumonia
[2018-10-30] MEDS: Azithromycin 500MG/NS 250ml 500 MG/250 ML BAG IVPB SCH (11:00)
[2018-10-30] MEDS: Albuterol-Ipratrop 3 mg / 0.5 (3 ml) UD IH SCH ×3 (11:13→20:13)
[2018-10-31] MEDS: Insulin Lispro (humaLOG) LOW Coverage SC SCH (00:04)
[2018-10-31] MEDS: Vancomycin 1gm in NS 250ml 1 GM/250 ML BAG IVPB SCH (05:17)
[2018-10-31] MEDS: Pantoprazole 40 mg EC Tab PO SCH (05:17)
[2018-10-31] MEDS: Albuterol-Ipratrop 3 mg / 0.5 (3 ml) UD IH SCH ×4 (05:45→19:44)
[2018-10-31 07:57] VITALS: RESP 18
[2018-10-31] MEDS: Azithromycin 500MG/NS 250ml 500 MG/250 ML BAG IVPB SCH (09:17)
[2018-10-31] MEDS: guaiFENesin-DM 600-30 mg ER Tab PO SCH ×2 (09:17→17:19)
[2018-10-31] MEDS: cefTRIAXone 1 gm 1 GM/100 ML BAG IVPB SCH (09:17)
[2018-10-31 09:25] LABS: BASO # 0.02 K/mm3 (0.0-2.0); BASO % 0.2 % (0.0-3.0); EOS # 0.1 (0.0-0.7); EOS % 0.8 % (1.5-5.0); GRAN # 6.66 (1.4-6.5); HEMOGLOBIN 10.4 g/dL (12.0-16.0); LYMPH % 20.6 % (22.0-35.0); MEAN CELL VOLUME 90.9 fl (80.0-105.0); MEAN CORPUSCULAR HEMOGLOBIN 29.6 pg (25.0-35.0); MEAN CORPUSCULAR HGB CONC 32.6 g/dl (31.0-37.0); MEAN PLATELET VOLUME 9.1 fl (7.0-11.0); MONO # 0.8 (0.1-0.6); MONO % 8.4 % (1.0-6.0); RBC 3.51 10^6/uL (3.5-6.1); RED CELL DISTRIBUTION WIDTH 13.8 % (11.5-14.5); WHITE BLOOD COUNT 9.5 10^3/uL (4.5-11.0)
[2018-10-31 10:06] LABS: ALBUMIN 3.2 g/dL (3.0-4.8); ALT/SGPT 26 U/L (7-56); AST/SGOT 19 U/L (14-36); BLOOD UREA NITROGEN 6 mg/dL (7-21); CALCIUM 8.7 mg/dL (8.4-10.5); GFR NON-AFRICAN AMERICAN > 60
--- NOTE | 2018-10-31 13:44 | CP.PCM.PN ---
<Yg Meyers - Last Filed: 10/31/18 16:05> Subjective - Date & Time of Evaluation Date of Evaluation: 10/31/18 Time of Evaluation: 07:30 - Subjective Subjective: Medicine Progress Note for Hospitalist Service, Dr. Sherif Meyers, DO PGY-1 Pt seen and examined at bedside this am. Denies any acute complaints. States she has been able to ambulate around room without concerns. Reports shortness of breath and cough improving. No acute events reported overnight by staff. Denies fever, chills, chest pain, n/v/d/c, abd pain, urinary complaints, or other symptoms. Objective - Vital Signs/Intake and Output Vital Signs (last 24 hours): Temp Pulse Resp BP Pulse Ox 98.4 F 69 18 97/54 L 99 10/31/18 06:00 10/31/18 06:00 10/31/18 06:00 10/31/18 06:00 10/31/18 06:00 Intake and Output: 10/31/18 10/31/18 06:59 18:59 Intake Total 240 Balance 240 - Medications Medications: Current Medications Acetaminophen (Tylenol 325mg Tab) 650 mg PO Q6H PRN PRN Reason: Fever >100.4 F Albuterol/Ipratropium (Duoneb 3 Mg/0.5 Mg (3 Ml) Ud) 3 ml IH [id number] [facility] Last Admin: 10/31/18 08:05 Dose: 3 ml Albuterol/Ipratropium (Duoneb 3 Mg/0.5 Mg (3 Ml) Ud) 3 ml IH Q3H PRN PRN Reason: SOB Atorvastatin Calcium (Lipitor) 40 mg PO DIN [facility] Last Admin: 10/30/18 18:22 Dose: 40 mg Guaifenesin/Dextromethorphan (Mucinex-Dm 600-30 Mg) 1 tab PO BID [facility] Last Admin: 10/31/18 09:17 Dose: 1 tab Sodium Chloride (Sodium Chloride 0.9%) 1,000 mls @ 100 mls/hr IV .Q10H [facility] Last Admin: 10/30/18 00:32 Dose: 100 mls/hr Ceftriaxone Sodium (Rocephin 1 Gram Ivpb) 1 gm in 100 mls @ 100 mls/hr IVPB DAILY [facility]; Protocol Last Admin: 10/31/18 09:17 Dose: 100 mls/hr Azithromycin (Zithromax 500mg In Ns) 500 mg in 250 mls @ 167 mls/hr IVPB DAILY [facility]; Protocol Last Admin: 10/31/18 09:17 Dose: 167 mls/hr Insulin Human Lispro (Humalog Low) 0 units SC ACHS [facility]; Protocol Last Admin: 10/31/18 00:04 Dose: Not Given Lorazepam (Ativan) 1 mg IVP Q6H PRN; Protocol PRN Reason: Anxiety Ondansetron HCl (Zofran Inj) 4 mg IVP Q6H PRN PRN Reason: Nausea/Vomiting Last Admin: 10/31/18 09:17 Dose: 4 mg Pantoprazole Sodium (Protonix Ec Tab) 40 mg PO 0600 [facility] Last Admin: 10/31/18 05:17 Dose: 40 mg - Labs Labs: 10/31/18 09:15 10/31/18 09:15 - Constitutional Appears: Non-toxic, No Acute Distress - Head Exam Head Exam: ATRAUMATIC, NORMOCEPHALIC - Eye Exam Eye Exam: EOMI, Normal appearance - ENT Exam ENT Exam: Mucous Membranes Moist - Respiratory Exam Respiratory Exam: Clear to Ausculation Bilateral, NORMAL BREATHING PATTERN. absent: Rales, Rhonchi, Wheezes - Cardiovascular Exam Cardiovascular Exam: REGULAR RHYTHM, +S1, +S2. absent: Gallop, Rubs, Murmur - GI/Abdominal Exam GI & Abdominal Exam: Soft, Normal Bowel Sounds. absent: Distended, Guarding, Tenderness, Organomegaly - Extremities Exam Extremities Exam: Full ROM, Normal Capillary Refill, Normal Inspection - Neurological Exam Neurological Exam: Alert, Awake, CN II-XII Intact, Normal Gait, Oriented x3 - Skin Skin Exam: Dry, Intact, Normal Color, Warm Assessment and Plan - Assessment and Plan (Free Text) Assessment: 53 y o female PMHx HTN, HLD, IDDM, COPD, uterine fibroids s/p hysterectomy and oophorectomy, bipolar disorder and anxiety [place] [facility] [place] with complaints of 4 days of URI symptoms. CT showed evidence of pneumonia. Patient admitted to med/surg for further management. Plan: 1. Right middle lobe and Left lower lobe pneumonia -C/w Azithro and Rocephin day #2; Vanco d/c'd -Leukocytosis resolved -Afebrile, hypotensive, continue to monitor -Shortness of breath improving, pt ambulating without concerns -HHD -Blood and urine cxs demonstrating NGTD -Tylenol prn for fevers -CT findings as noted above -Duonebs prn -Mucinex-DM bid -Influenza neg, pending Legionella Ag 2. Mild Enteritis - likely viral -Resolving, pt tolerating PO diet well -Cont to monitor 3. Hypokalemia -Resolved, K 3.6 today -Cont to trend 4. Normocytic anemia -H/H 10.4/31.9 -Cont to trend, pt currently asymptomatix 5. HTN- chronic -Home meds Propranolol and Lisinopril held 2/2 hypotension -Cont to trend 6. HLD- chronic -Lipitor 40 mg PO din 7. IDDM- chronic -ISS -Cont to trend sugars 8. COPD- chronic -Duonebs prn 9. Bipolar disorder- chronic -Home meds Trazodone, Trileptal, and Abilify continued; verified with pt's pharmacy 10. Anxiety- chronic -Cont w/ psych meds as noted above 11. Extensive tobacco use in the past -Pt admits to quitting smoking 1 week prior -Encourage smoking cessation DVT/GI ppx: Protonix/SCDs Pt seen, examined with, and plan discussed with Dr. Gorman, attending yohan saucedo. Yg Meyers DO PGY-1, Lead Manufacturing Technician Pager #[phone] <Andrés Gorman - Last Filed: 11/02/18 16:36> Objective - Vital Signs/Intake and Output Vital Signs (last 24 hours): Temp Pulse Resp BP Pulse Ox 98.1 F 78 18 107/66 100 11/01/18 14:18 11/01/18 14:18 11/01/18 14:18 11/01/18 14:18 11/01/18 14:18 - Labs Labs: 11/01/18 07:40 11/01/18 07:40 Attending/Attestation - Attestation I have personally seen and examined this patient.: Yes I have fully participated in the care of the patient.: Yes I have reviewed all pertinent clinical information, including history, physical exam and plan: Yes Notes (Text): 53y/o F with PMH of COPD, HTN, IDDM admitted here for B/L PNA. All cultures have remained negative. Vanco DC'd c/w zithromax and rocephin c/w BP meds K of 3.6. Monitor and replace electrolytes as needed c/w RISS c/w lipitor
[2018-11-01] MEDS: Albuterol-Ipratrop 3 mg / 0.5 (3 ml) UD IH SCH ×3 (01:17→13:23)
[2018-11-01] MEDS: Insulin Lispro (humaLOG) LOW Coverage SC SCH ×4 (05:49→16:32)
[2018-11-01] MEDS: Pantoprazole 40 mg EC Tab PO SCH ×2 (05:50→09:25)
[2018-11-01 08:22] LABS: HEMOGLOBIN 10.2 g/dL (12.0-16.0); MEAN CELL VOLUME 90.9 fl (80.0-105.0); MEAN CORPUSCULAR HEMOGLOBIN 29.1 pg (25.0-35.0); MEAN PLATELET VOLUME 9.3 fl (7.0-11.0); RBC 3.51 10^6/uL (3.5-6.1); RED CELL DISTRIBUTION WIDTH 13.9 % (11.5-14.5); WHITE BLOOD COUNT 7.1 10^3/uL (4.5-11.0)
[2018-11-01 08:41] LABS: ALBUMIN 3.2 g/dL (3.0-4.8); ALT/SGPT 23 U/L (7-56); AST/SGOT 23 U/L (14-36); BLOOD UREA NITROGEN 9 mg/dL (7-21); CALCIUM 8.8 mg/dL (8.4-10.5); GFR NON-AFRICAN AMERICAN > 60
[2018-11-01] MEDS: Azithromycin 500MG/NS 250ml 500 MG/250 ML BAG IVPB SCH (09:29)
[2018-11-01] MEDS: cefTRIAXone 1 gm 1 GM/100 ML BAG IVPB SCH (12:36)
[2018-11-01] MEDS: guaiFENesin-DM 600-30 mg ER Tab PO SCH (12:37)
--- NOTE | 2018-11-01 13:27 | CP.PCM.DIS ---
<Yg Meyers - Last Filed: 11/01/18 17:51> Provider - Provider Date of Admission: 10/29/18 23:01 Attending physician: Andrés Gorman MD Primary care physician: NO FAMILY PROVIDER Time Spent in preparation of Discharge (in minutes): 45 Diagnosis - Discharge Diagnosis (1) Pneumonia of both lungs due to infectious organism Status: Acute (2) Enteritis Status: Acute (3) Normocytic anemia Status: Chronic (4) HTN (hypertension) Status: Chronic (5) HLD (hyperlipidemia) Status: Chronic (6) IDDM (insulin dependent diabetes mellitus) Status: Chronic (7) COPD (chronic obstructive pulmonary disease) Status: Chronic (8) Bipolar disorder Status: Chronic (9) Anxiety Status: Chronic (10) Tobacco abuse Status: Chronic Hospital Course - Lab Results Lab Results: Micro Results 10/30/18 00:20 Blood Blood Culture - Preliminary NO GROWTH AFTER 48 HOURS 10/30/18 00:00 Blood Blood Culture - Preliminary NO GROWTH AFTER 48 HOURS 10/29/18 17:57 Urine Urine Culture - Final No Growth (<1,000 CFU/ML) Most Recent Lab Values WBC 7.1 10^3/uL (4.5-11.0) D 11/01/18 07:40 RBC 3.51 10^6/uL (3.5-6.1) 11/01/18 07:40 Hgb 10.2 g/dL (12.0-16.0) L 11/01/18 07:40 Hct 31.9 % (36.0-48.0) L 11/01/18 07:40 MCV 90.9 fl (80.0-105.0) 11/01/18 07:40 MCH 29.1 pg (25.0-35.0) 11/01/18 07:40 MCHC 32.0 g/dl (31.0-37.0) 11/01/18 07:40 RDW 13.9 % (11.5-14.5) 11/01/18 07:40 Plt Count 260 10^3/uL (120.0-450.0) 11/01/18 07:40 MPV 9.3 fl (7.0-11.0) 11/01/18 07:40 Gran % 70.0 % (50.0-68.0) H 10/31/18 09:15 Lymph % (Auto) 20.6 % (22.0-35.0) L 10/31/18 09:15 [place] % (Auto) 8.4 % (1.0-6.0) H 10/31/18 09:15 Eos % (Auto) 0.8 % (1.5-5.0) L 10/31/18 09:15 Baso % (Auto) 0.2 % (0.0-3.0) 10/31/18 09:15 Gran # 6.66 (1.4-6.5) H 10/31/18 09:15 Lymph # (Auto) 2.0 (1.2-3.4) 10/31/18 09:15 [place] # (Auto) 0.8 (0.1-0.6) H 10/31/18 09:15 Eos # (Auto) 0.1 (0.0-0.7) 10/31/18 09:15 Baso # (Auto) 0.02 K/mm3 (0.0-2.0) 10/31/18 09:15 pO2 90 mm/Hg (30-55) H 10/30/18 07:30 VBG pH 7.40 (7.32-7.43) 10/30/18 07:30 VBG pCO2 50.0 (40-60) 10/30/18 07:30 VBG HCO3 31.0 mmol/l (21-28) H 10/30/18 07:30 VBG Total CO2 32.5 mmol.L (22-28) H 10/30/18 07:30 VBG O2 Sat (Calc) 98.4 % (40-65) H 10/30/18 07:30 VBG Base Excess 5.0 mmol/L (0.0-2.0) H 10/30/18 07:30 VBG Potassium 3.2 mmol/L (3.6-5.2) L 10/30/18 07:30 Sodium 139.0 mmol/L (132-148) 10/30/18 07:30 Chloride 103.0 mmol/L (98-107) 10/30/18 07:30 Glucose 114 mg/dl (65-105) H 10/30/18 07:30 Lactate 0.9 mmol/L (0.7-2.1) 10/30/18 07:30 FiO2 21.0 % 10/30/18 07:30 Sodium 142 mmol/L (132-148) 11/01/18 07:40 Potassium 3.9 mmol/L (3.6-5.0) 11/01/18 07:40 Chloride 110 mmol/L (98-107) H 11/01/18 07:40 Carbon Dioxide 29 mmol/L (21-33) 11/01/18 07:40 Anion Gap 8 (10-20) L 11/01/18 07:40 BUN 9 mg/dL (7-21) 11/01/18 07:40 Creatinine 0.6 mg/dl (0.7-1.2) L 11/01/18 07:40 Est GFR ( Amer) > 60 11/01/18 07:40 Est GFR (Non-Af Amer) > 60 11/01/18 07:40 POC Glucose (mg/dL) 84 mg/dL (65-110) 11/01/18 11:17 Random Glucose 117 mg/dL (70-110) H 11/01/18 07:40 Hemoglobin A1c 6.4 % (4.2-6.5) 10/30/18 07:00 Calcium 8.8 mg/dL (8.4-10.5) 11/01/18 07:40 Phosphorus 3.2 mg/dL (2.5-4.5) 11/01/18 07:40 Magnesium 2.1 mg/dL (1.7-2.2) 11/01/18 07:40 Iron 23 ug/dL (45-180) L 10/30/18 07:00 TIBC 215 ug/dL (265-497) L 10/30/18 07:00 % Saturation 11 % (20-55) L 10/30/18 07:00 Transferrin 146.88 mg/dL (206-381) L 10/30/18 07:00 Ferritin 359.0 ng/mL 10/30/18 07:00 Total Bilirubin 0.3 mg/dL (0.2-1.3) 11/01/18 07:40 AST 23 U/L (14-36) 11/01/18 07:40 ALT 23 U/L (7-56) 11/01/18 07:40 Alkaline Phosphatase 68 U/L (38-126) 11/01/18 07:40 Total Protein 6.4 g/dL (5.8-8.3) 11/01/18 07:40 Albumin 3.2 g/dL (3.0-4.8) 11/01/18 07:40 Globulin 3.1 gm/dL 11/01/18 07:40 Albumin/Globulin Ratio 1.0 (1.1-1.8) L 11/01/18 07:40 Triglycerides 65 mg/dL (35-160) 10/30/18 07:00 Cholesterol 125 mg/dL (130-200) L 10/30/18 07:00 LDL Cholesterol Direct 70 mg/dL (0-129) 10/30/18 07:00 HDL Cholesterol 34 mg/dL (29-60) 10/30/18 07:00 Lipase 97 U/L (23-300) 10/29/18 18:59 Vitamin B12 358 pg/mL (239-931) 10/30/18 07:00 Folate 11.8 ng/mL 10/30/18 07:00 Procalcitonin 0.55 NG/ML (0.19-0.49) H 10/30/18 07:00 Venous Blood Potassium 3.2 mmol/L (3.6-5.2) L 10/30/18 07:30 Urine Color Yellow (YELLOW) 10/29/18 17:57 Urine Appearance Clear (CLEAR) 10/29/18 17:57 Urine pH 6.5 (4.7-8.0) 10/29/18 17:57 Ur Specific [place] 1.015 (1.005-1.035) 10/29/18 17:57 Urine Protein Negative mg/dL (<30 mg/dL) 10/29/18 17:57 Urine Glucose (UA) Negative mg/dL (NEGATIVE) 10/29/18 17:57 Urine Ketones Negative mg/dL (NEGATIVE) 10/29/18 17:57 Urine Blood Negative (NEGATIVE) 10/29/18 17:57 Urine Nitrate Negative (NEGATIVE) 10/29/18 17:57 Urine Bilirubin Negative (NEGATIVE) 10/29/18 17:57 Urine Urobilinogen 4.0 E.U./dL (<1 E.U./dL) H 10/29/18 17:57 Ur Leukocyte Esterase Negative Dejuan/uL (NEGATIVE) 10/29/18 17:57 Alcohol, Quantitative < 10 mg/dL (0-10) 10/30/18 00:00 Influenza Typ A,B (EIA) Negative for flu a/b (NEGATIVE) 10/29/18 18:59 - Hospital Course Hospital Course: HPI at time of admission: "53 year-old female PMHx HTN, HLD, IDDM, COPD, uterine fibroids s/p hysterectomy and ooporectomy, bipolar disorder and anxiety [place] [facility] [place] with complaints of 4 days of URI symptoms. Patient reports having a cough and flu-like symptoms for which she was seen at an urgent care and discharged on steroids and PO antibiotics but told to go to the ER if symptoms did not improve. Patient reports that over the past 4 days she has been experiencing fevers with Tmax 100.5F to 100.6F and chills. She also complained of a productive cough with yellow/green phlegm but denied any hemoptysis. Patient also complained of cramping abdominal pain and some nausea and vomiting. She reports lasting having 2 episodes of nonbloody nonbilious emesis prior to coming to the ER but no diarrhea/constipation. She admits to sick contacts at home reporting her grand daughter has similar symptoms. On ROS patient admitted to headache, dizziness but denied any chest pain, palpitations, SOB, pain/swelling in her legs bilaterally. Of note patient recently quit smoking tobacco 1 week ago and had been smoking 2-3ppd since she was 15 years old. She also admits to receiving her flu shot this year." Hospital Course: Pertinent imaging: CT abd/pelvis: multifocal infiltrates in R middle lobe and L lower lobe c/w PNA CXR 2 views: infiltrate in medial aspect of LLL and patchy linear infiltrate in R middle lobe c/w PNA. Pt was admitted for management of Multilobar pneumonia. Was treated with IV Rocephin and Azithromycin while inpatient. Pt's shortness of breath improved during course of admission, likely 2/2 COPD and tobacco abuse hx, was placed on Duonebs prn for symptoms, tolerated well. Influenza was negative. Pt was also managed for mild enteritis, which resolved during course of admission. Pt was able to tolerate PO diet without concerns. Smoking cessation counseling was given during pt's admission. Pt was also managed on home meds for hx HTN, HLD, anxiety, and bipolar disorder. Pt was discharged to home in stable condition on 11/01/18. Given script for Clindamycin to complete additional 7 days of therapy for treatment of PNA. Instructed to f/u with PMD and with outpatient psychiatrist within 3-5 days after hospital discharge for follow-up. For further details of hospital admission, please refer to EMR. Discharge Exam - Head Exam Head Exam: ATRAUMATIC, NORMOCEPHALIC - Eye Exam Eye Exam: EOMI, Normal appearance, PERRL - ENT Exam ENT Exam: Mucous Membranes Moist - Respiratory Exam Respiratory Exam: Clear to PA & Lateral, NORMAL BREATHING PATTERN, UNREMARKABLE. absent: Rales, Rhonchi, Wheezes - Cardiovascular Exam Cardiovascular Exam: REGULAR RHYTHM, +S1, +S2. absent: Gallop, Rubs, Systolic Murmur - GI/Abdominal Exam GI & Abdominal Exam: Normal Bowel Sounds, Soft, Unremarkable. absent: Tenderness - Extremities Exam Extremities exam: full ROM, normal capillary refill, normal inspection, pedal pulses present - Neurological Exam Neurological exam: Alert, CN II-XII Intact, Normal Gait, Oriented x3, Reflexes Normal - Psychiatric Exam Psychiatric exam: Normal Affect, Normal Mood - Skin Skin Exam: Dry, Intact, Normal Color, Warm Discharge Plan - Discharge Medications Prescriptions: RX: Clindamycin [Cleocin] 300 mg PO BID #14 cap - Follow Up Plan Condition: FAIR Disposition: HOME/ ROUTINE Instructions: Panic Disorder, Chronic Obstructive Pulmonary Disease (COPD), Including Emphysema, Bipolar Disorder, Heart Healthy Diet, Quitting Smoking for Older Adults, Smoking: Not Just Harmful to Your Lungs and Heart, High Blood Pressure (DC), Shortness of Breath (Dyspnea) (DC), High Cholesterol (DC) Additional Instructions: Please follow up with your primary care doctor (Dr. Bran) within 3-5 days of discharge. Your blood pressure has been low while in the hospital. Please STOP takin. Propranolol 10mg TID 2. Lisinopril 2.5mg ONCE daily Continue these medications: 1. Abilify 20mg Daily 2. Trazodone 150mg one pill at Night 3. Trileptal 150mg one pill TWICE DAILY You will be given prescription today for the following antibiotic. Take as prescribed. 1. Clindamycin 300 mg orally twice daily for the next 7 days. Continue to follow up with your psychiatrist outpatient. If your symptoms return, please go to the nearest emergency department. Referrals: Sonia Bran MD [Medical Doctor] - <Andrés Gorman - Last Filed: 11/02/18 16:30> Provider - Provider Date of Admission: 10/29/18 23:01 Attending physician: Andrés Gorman MD Primary care physician: [facility] FAMILY PROVIDER Hospital Course - Lab Results Lab Results: Micro Results 10/30/18 00:20 Blood Blood Culture - Preliminary NO GROWTH AFTER 3 DAYS 10/30/18 00:00 Blood Blood Culture - Preliminary NO GROWTH AFTER 3 DAYS 10/29/18 17:57 Urine Urine Culture - Final No Growth (<1,000 CFU/ML) Most Recent Lab Values WBC 7.1 10^3/uL (4.5-11.0) D 11/01/18 07:40 RBC 3.51 10^6/uL (3.5-6.1) 11/01/18 07:40 Hgb 10.2 g/dL (12.0-16.0) L 11/01/18 07:40 Hct 31.9 % (36.0-48.0) L 11/01/18 07:40 MCV 90.9 fl (80.0-105.0) 11/01/18 07:40 MCH 29.1 pg (25.0-35.0) 11/01/18 07:40 MCHC 32.0 g/dl (31.0-37.0) 11/01/18 07:40 RDW 13.9 % (11.5-14.5) 11/01/18 07:40 Plt Count 260 10^3/uL (120.0-450.0) 11/01/18 07:40 MPV 9.3 fl (7.0-11.0) 11/01/18 07:40 Gran % 70.0 % (50.0-68.0) H 10/31/18 09:15 Lymph % (Auto) 20.6 % (22.0-35.0) L 10/31/18 09:15 [place] % (Auto) 8.4 % (1.0-6.0) H 10/31/18 09:15 Eos % (Auto) 0.8 % (1.5-5.0) L 10/31/18 09:15 Baso % (Auto) 0.2 % (0.0-3.0) 10/31/18 09:15 Gran # 6.66 (1.4-6.5) H 10/31/18 09:15 Lymph # (Auto) 2.0 (1.2-3.4) 10/31/18 09:15 [place] # (Auto) 0.8 (0.1-0.6) H 10/31/18 09:15 Eos # (Auto) 0.1 (0.0-0.7) 10/31/18 09:15 Baso # (Auto) 0.02 K/mm3 (0.0-2.0) 10/31/18 09:15 pO2 90 mm/Hg (30-55) H 10/30/18 07:30 VBG pH 7.40 (7.32-7.43) 10/30/18 07:30 VBG pCO2 50.0 (40-60) 10/30/18 07:30 VBG HCO3 31.0 mmol/l (21-28) H 10/30/18 07:30 VBG Total CO2 32.5 mmol.L (22-28) H 10/30/18 07:30 VBG O2 Sat (Calc) 98.4 % (40-65) H 10/30/18 07:30 VBG Base Excess 5.0 mmol/L (0.0-2.0) H 10/30/18 07:30 VBG Potassium 3.2 mmol/L (3.6-5.2) L 10/30/18 07:30 Sodium 139.0 mmol/L (132-148) 10/30/18 07:30 Chloride 103.0 mmol/L (98-107) 10/30/18 07:30 Glucose 114 mg/dl (65-105) H 10/30/18 07:30 Lactate 0.9 mmol/L (0.7-2.1) 10/30/18 07:30 FiO2 21.0 % 10/30/18 07:30 Sodium 142 mmol/L (132-148) 11/01/18 07:40 Potassium 3.9 mmol/L (3.6-5.0) 11/01/18 07:40 Chloride 110 mmol/L (98-107) H 11/01/18 07:40 Carbon Dioxide 29 mmol/L (21-33) 11/01/18 07:40 Anion Gap 8 (10-20) L 11/01/18 07:40 BUN 9 mg/dL (7-21) 11/01/18 07:40 Creatinine 0.6 mg/dl (0.7-1.2) L 11/01/18 07:40 Est GFR ( Amer) > 60 11/01/18 07:40 Est GFR (Non-Af Amer) > 60 11/01/18 07:40 POC Glucose (mg/dL) 173 mg/dL (65-110) H 11/01/18 15:59 Random Glucose 117 mg/dL (70-110) H 11/01/18 07:40 Hemoglobin A1c 6.4 % (4.2-6.5) 10/30/18 07:00 Calcium 8.8 mg/dL (8.4-10.5) 11/01/18 07:40 Phosphorus 3.2 mg/dL (2.5-4.5) 11/01/18 07:40 Magnesium 2.1 mg/dL (1.7-2.2) 11/01/18 07:40 Iron 23 ug/dL (45-180) L 10/30/18 07:00 TIBC 215 ug/dL (265-497) L 10/30/18 07:00 % Saturation 11 % (20-55) L 10/30/18 07:00 Transferrin 146.88 mg/dL (206-381) L 10/30/18 07:00 Lucille Transferrin Receptr 0.92 mg/L (0.76-1.76) 10/30/18 07:00 Ferritin 359.0 ng/mL 10/30/18 07:00 Total Bilirubin 0.3 mg/dL (0.2-1.3) 11/01/18 07:40 AST 23 U/L (14-36) 11/01/18 07:40 ALT 23 U/L (7-56) 11/01/18 07:40 Alkaline Phosphatase 68 U/L (38-126) 11/01/18 07:40 Total Protein 6.4 g/dL (5.8-8.3) 11/01/18 07:40 Albumin 3.2 g/dL (3.0-4.8) 11/01/18 07:40 Globulin 3.1 gm/dL 11/01/18 07:40 Albumin/Globulin Ratio 1.0 (1.1-1.8) L 11/01/18 07:40 Triglycerides 65 mg/dL (35-160) 10/30/18 07:00 Cholesterol 125 mg/dL (130-200) L 10/30/18 07:00 LDL Cholesterol Direct 70 mg/dL (0-129) 10/30/18 07:00 HDL Cholesterol 34 mg/dL (29-60) 10/30/18 07:00 Lipase 97 U/L (23-300) 10/29/18 18:59 Vitamin B12 358 pg/mL (239-931) 10/30/18 07:00 Folate 11.8 ng/mL 10/30/18 07:00 Procalcitonin 0.55 NG/ML (0.19-0.49) H 10/30/18 07:00 Venous Blood Potassium 3.2 mmol/L (3.6-5.2) L 10/30/18 07:30 Urine Color Yellow (YELLOW) 10/29/18 17:57 Urine Appearance Clear (CLEAR) 10/29/18 17:57 Urine pH 6.5 (4.7-8.0) 10/29/18 17:57 Ur Specific [place] 1.015 (1.005-1.035) 10/29/18 17:57 Urine Protein Negative mg/dL (<30 mg/dL) 10/29/18 17:57 Urine Glucose (UA) Negative mg/dL (NEGATIVE) 10/29/18 17:57 Urine Ketones Negative mg/dL (NEGATIVE) 10/29/18 17:57 Urine Blood Negative (NEGATIVE) 10/29/18 17:57 Urine Nitrate Negative (NEGATIVE) 10/29/18 17:57 Urine Bilirubin Negative (NEGATIVE) 10/29/18 17:57 Urine Urobilinogen 4.0 E.U./dL (<1 E.U./dL) H 10/29/18 17:57 Ur Leukocyte Esterase Negative Dejuan/uL (NEGATIVE) 10/29/18 17:57 Alcohol, Quantitative < 10 mg/dL (0-10) 10/30/18 00:00 Influenza Typ A,B (EIA) Negative for flu a/b (NEGATIVE) 10/29/18 18:59 Attending/Attestation - Attestation I have personally seen and examined this patient.: Yes I have fully participated in the care of the patient.: Yes I have reviewed all pertinent clinical information, including history, physical exam and plan: Yes
[2018-11-01 14:19] VITALS: BP 107/66; PULSE 78; TEMP 98.1; O2SAT 100
[2018-11-01] MEDS ORDERED: Pneumococcal 23-Valent Vaccine IM ONE (15:19)
== END 2018-11-01 18:54 | disposition home or self-care (01) | DRG 89 ==
LOC: ED 16:33 → ERH 23:01 → 5RSO 10-30 01:34
PROVIDERS: ADMIT Hospitalist; ATTEND Hospitalist
PROC: 3E0F7GC Introduction of Other Therapeutic Substance into Respiratory Tract, Via Natural or Artificial Opening (ICD-10-PCS; principal; 2018-10-30)
DX: J18.1 Lobar pneumonia, unspecified organism (principal); J44.0 Chronic obstructive pulmonary disease with (acute) lower respiratory infection; E87.6 Hypokalemia; K52.9 Noninfective gastroenteritis and colitis, unspecified; I10 Essential (primary) hypertension; E11.9 Type 2 diabetes mellitus without complications; E78.5 Hyperlipidemia, unspecified; F31.9 Bipolar disorder, unspecified; D64.9 Anemia, unspecified; Z79.4 Long term (current) use of insulin; Z95.5 Presence of coronary angioplasty implant and graft

== ENCOUNTER 2018-12-01 15:46 | Emergency (ER) | payer MEDICAID ==
[2018-12-01 16:04] VITALS: RESP 18; O2SAT 100; BMI 21.2
[2018-12-01] MEDS ORDERED: Albuterol-Ipratrop 3 mg / 0.5 (3 ml) UD IH STA ×3 (16:32→17:27)
--- NOTE | 2018-12-01 17:23 | RAD ---
Date of service: 12/01/2018 HISTORY: SOB COMPARISON: 10/29/2018 FINDINGS: LUNGS: No active pulmonary disease. PLEURA: No significant pleural effusion identified, no pneumothorax apparent. CARDIOVASCULAR: No atherosclerotic calcification present No radiographic findings to suggest acute or significant cardiovascular disease. OSSEOUS STRUCTURES: No significant abnormalities. VISUALIZED UPPER ABDOMEN: Normal. OTHER FINDINGS: None. IMPRESSION: No active disease. Resolution previously identified lower lobe infiltrates.
[2018-12-01 17:37] LABS: VENOUS BLOOD GAS BASE EXCESS 5.6 mmol/L (0.0-2.0); VENOUS BLOOD GAS PO2 25 mm/Hg (30-55); VENOUS BLOOD PH 7.36 (7.32-7.43)
--- NOTE | 2018-12-01 17:44 | ED PDOC ---
Arrival/HPI - General Chief Complaint: Shortness Of Breath Time Seen by Provider: 12/01/18 16:13 Historian: Patient - History of Present Illness Narrative History of Present Illness (Text): 12/01/18 17:41 53yo female with pmhx of Schizophrenia recently treated for Pneumonia last month present with complaint nonproductive cough, b/l rib pain with cough causing her to have SOB since this morning. States she was given inhaler to use, didn't use it and not sure of why. Denies fever, chills, diaphoresis, orthopnea, DO, sick contact, travel, any other complaint. Past Medical History - Provider Review Nursing Documentation Reviewed: Yes - Infectious Disease Hx of Infectious Diseases: None - Tetanus Immunization Tetanus Immunization: Unknown - Cardiac Hx Cardiac Disorders: Yes (denies mi) Hx Angina: Yes Hx Hypertension: Yes - Pulmonary Hx Respiratory Disorders: Yes Hx Asthma: Yes - Neurological Hx Neurological Disorder: Yes Hx Migraine: Yes - HEENT Hx HEENT Disorder: No - Renal Hx Renal Disorder: No - Endocrine/Metabolic Hx Endocrine Disorders: Yes Hx Diabetes Mellitus Type 2: Yes - Hematological/Oncological Hx Blood Disorders: No - Integumentary Hx Dermatological Disorder: No - Musculoskeletal/Rheumatological Hx Musculoskeletal Disorders: No Hx Falls: No - Gastrointestinal Hx Gastrointestinal Disorders: No - Genitourinary/Gynecological Hx Genitourinary Disorders: No - Psychiatric Hx Psychophysiologic Disorder: Yes Hx Anxiety: Yes Hx Bipolar Disorder: Yes (has not taken meds x 5 months) Hx Panic Disorder: Yes Hx Schizophrenia: Yes Hx Substance Use: No - Surgical History Hx Appendectomy: Yes Hx Cardiac Catheterization: Yes Hx Cholecystectomy: Yes Hx Coronary Stent: Yes Hx Hysterectomy: Yes - Anesthesia Hx Anesthesia: Yes Hx Anesthesia Reactions: No Hx Malignant Hyperthermia: No - Suicidal Assessment Feels Threatened In Home Enviroment: No Family/Social History - Physician Review Nursing Documentation Reviewed: Yes Family/Social History: Unknown Family HX Smoking Status: Light Smoker < 10 Cigarettes Daily Hx Alcohol Use: No Hx Substance Use: No Allergies/Home Meds Allergies/Adverse Reactions: Allergies aspirin Allergy (Verified 12/01/18 16:04) SHORTNESS OF BREATH Home Medications: Home Meds Medication Instructions Recorded Confirmed RX: Aripiprazole [Abilify] 20 mg PO DAILY 10/31/18 10/31/18 RX: Oxcarbazepine [Trileptal] 150 mg PO BID 10/31/18 10/31/18 RX: Trazodone HCl 150 mg PO HS 10/31/18 10/31/18 Review of Systems - Physician Review All systems were reviewed & negative as marked: Yes - Review of Systems Constitutional: Normal Eyes: Normal ENT: Normal Respiratory: SOB, Cough Cardiovascular: Normal Gastrointestinal: Normal Genitourinary Female: Normal Musculoskeletal: Normal Skin: Normal Neurological: Normal Endocrine: Normal Hemo/Lymphatic: Normal Psychiatric: Normal Physical Exam Vital Signs Reviewed: Yes Vital Signs Pulse Resp BP Pulse Ox 12/01/18 16:18 18 100 12/01/18 16:04 92 H 18 114/56 L 100 Temperature: Afebrile Blood Pressure: Normal Pulse: Regular Respiratory Rate: Normal Appearance: Positive for: Well-Appearing, Non-Toxic, Comfortable Pain Distress: None Mental Status: Positive for: Alert and Oriented X 3 - Systems Exam Head: Present: Atraumatic, Normocephalic Pupils: Present: PERRL Extroacular Muscles: Present: EOMI Conjunctiva: Present: Normal Mouth: Present: Moist Mucous Membranes Neck: Present: Normal Range of Motion Respiratory/Chest: Present: Good Air Exchange, Wheezes (Diffuse expiratory wheeze). No: Respiratory Distress, Accessory Muscle Use, Decreased Breath Sounds, Rales, Retracting, Rhonchi, Tachypneic Cardiovascular: Present: Regular Rate and Rhythm, Normal S1, S2. No: Murmurs Abdomen: No: Tenderness, Distention, Peritoneal Signs Back: Present: Normal Inspection Upper Extremity: Present: Normal Inspection. No: Cyanosis, Edema Lower Extremity: Present: Normal Inspection. No: Edema Neurological: Present: GCS=15, CN II-XII Intact, Speech Normal Skin: Present: Warm, Dry, Normal Color. No: Rashes Psychiatric: Present: Alert, Oriented x 3, Normal Insight, Normal Concentration Medical Decision Making ED Course and Treatment: 12/02/18 01:37 Pt presented to ED for stated history. She had diffuse expiratory wheeze on exam. Labs Duorneb x3 Solu medriol Chest xray EKG chest xray IMPRESSION: No active disease. Resolution previously identified lower lobe infiltrates. EKG NSR @ 85bpm On re evaluation pt noted improvement of her symptoms. She was talking in full sentence without distress. Her lung was CTA b/l Lab was unremarkable She was DC home with prednisone and advised to continue with her inhaler as needed - Lab Interpretations Lab Results: pO2 25 mm/Hg (30-55) L 12/01/18 17:33 VBG pH 7.36 (7.32-7.43) 12/01/18 17:33 VBG pCO2 58.0 (40-60) 12/01/18 17:33 VBG HCO3 32.8 mmol/l (21-28) H 12/01/18 17:33 VBG Total CO2 34.6 mmol.L (22-28) H 12/01/18 17:33 VBG O2 Sat (Calc) 54.9 % (40-65) 12/01/18 17:33 VBG Base Excess 5.6 mmol/L (0.0-2.0) H 12/01/18 17:33 VBG Potassium 3.8 mmol/L (3.6-5.2) 12/01/18 17:33 Sodium 140.0 mmol/L (132-148) 12/01/18 17:33 Chloride 106.0 mmol/L (98-107) 12/01/18 17:33 Glucose 114 mg/dl (65-105) H 12/01/18 17:33 Lactate 1.0 mmol/L (0.7-2.1) 12/01/18 17:33 FiO2 21.0 % 12/01/18 17:33 - RAD Interpretation Radiology Orders: 12/01/18 16:32 CHEST PORTABLE [RAD] Stat - Medication Orders Current Medication Orders: Discontinued Medications Albuterol/Ipratropium (Duoneb 3 Mg/0.5 Mg (3 Ml) Ud) 3 ml IH STAT STA Stop: 12/01/18 16:33 Last Admin: 12/01/18 17:17 Dose: 3 ml Albuterol/Ipratropium (Duoneb 3 Mg/0.5 Mg (3 Ml) Ud) 3 ml IH STAT STA Stop: 12/01/18 17:28 Albuterol/Ipratropium (Duoneb 3 Mg/0.5 Mg (3 Ml) Ud) 3 ml IH STAT STA Stop: 12/01/18 17:28 Methylprednisolone (Solu-Medrol) 125 mg IVP STAT STA Stop: 12/01/18 16:33 Last Admin: 12/01/18 17:17 Dose: 125 mg IVP Administration Document 12/01/18 17:17 KV (Rec: 12/01/18 17:17 K[place] [id number] Charges for Administration # of IVP Administrations 1 Disposition/Present on Arrival - Present on Arrival Any Indicators Present on Arrival: No History of DVT/PE: No History of Uncontrolled Diabetes: No Urinary Catheter: No History of Decub. Ulcer: No History Surgical Site Infection Following: None - Disposition Have Diagnosis and Disposition been Completed?: Yes Diagnosis: COPD (chronic obstructive pulmonary disease) Disposition: HOME/ ROUTINE Disposition Time: 19:05 Patient Plan: Discharge Condition: IMPROVED Discharge Instructions (ExitCare): Exacerbation of COPD Additional Instructions: Follow up with your Doctor Return to ED for any new or worsening symptoms Prescriptions: RX: Prednisone 50 mg PO DAILY #5 tablet Referrals: Leela Ibrahim MD [Medical Doctor] - Follow up with primary Forms: [employer] (German)
[2018-12-01 17:50] LABS: BLOOD UREA NITROGEN 15 mg/dL (7-21); GFR NON-AFRICAN AMERICAN > 60
[2018-12-01 17:51] LABS: ALB/GLOB RATIO 1.4 (1.1-1.8); ALT/SGPT 16 U/L (7-56); AST/SGOT 29 U/L (14-36); CALCIUM 9.3 mg/dL (8.4-10.5)
[2018-12-01 17:55] LABS: B-TYPE NATRIURETIC PEPTIDE 58.8 pg/mL (0-450)
[2018-12-01 18:08] LABS: BASO # 0.01 K/mm3 (0.0-2.0); BASO % 0.1 % (0.0-3.0); EOS % 0.3 % (1.5-5.0); HEMOGLOBIN 12.2 g/dL (12.0-16.0); LYMPH # 1.4 (1.2-3.4); LYMPH % 10.2 % (22.0-35.0); MEAN CORPUSCULAR HEMOGLOBIN 29.5 pg (25.0-35.0); MEAN CORPUSCULAR HGB CONC 32.1 g/dl (31.0-37.0); MEAN PLATELET VOLUME 8.8 fl (7.0-11.0); MONO # 0.7 (0.1-0.6); MONO % 4.7 % (1.0-6.0); RBC 4.13 10^6/uL (3.5-6.1); RED CELL DISTRIBUTION WIDTH 14.7 % (11.5-14.5); WHITE BLOOD COUNT 14.1 10^3/uL (4.5-11.0)
[2018-12-01 18:12] LABS: INR 0.94; PARTIAL THROMBOPLASTIN TIME 33.4 Seconds (26.9-38.3); PROTHROMBIN TIME 10.4 SECONDS (9.4-12.5)
[2018-12-01 18:23] LABS: TROPONIN I < 0.01 ng/mL
[2018-12-01 19:55] VITALS: BP 116/63; PULSE 84
--- NOTE | 2018-12-01 21:59 | CARD ---
APPROVED REPORT Date of service: 12/01/2018 EKG Measurement Heart [id number] <Conclusion> Normal sinus rhythm Normal ECG
== END 2018-12-01 19:55 | disposition home or self-care (01) ==
LOC: ED 15:46
DX: J44.9 Chronic obstructive pulmonary disease, unspecified (principal); I10 Essential (primary) hypertension; F20.9 Schizophrenia, unspecified; E11.9 Type 2 diabetes mellitus without complications; F17.210 Nicotine dependence, cigarettes, uncomplicated
CPT/HCPCS: 71045; 80053; 82550; 82803; 83615; 83735; 83880; 84484; 85025; 85610; 85730; 87040; 93005; 96374; 99284; J2930

== ENCOUNTER 2019-02-21 14:39 | Observation (INO) | payer MEDICAID ==
[2019-02-21 14:41] VITALS: BMI 22.6
[2019-02-21 16:03] LABS: BASO # 0.01 K/mm3 (0.0-2.0); BASO % 0.2 % (0.0-3.0); EOS % 0.6 % (1.5-5.0); HEMOGLOBIN 13.3 g/dL (12.0-16.0); LYMPH # 2.2 (1.2-3.4); LYMPH % 35.1 % (22.0-35.0); MEAN CELL VOLUME 88.9 fl (80.0-105.0); MEAN CORPUSCULAR HEMOGLOBIN 29.6 pg (25.0-35.0); MEAN CORPUSCULAR HGB CONC 33.3 g/dl (31.0-37.0); MEAN PLATELET VOLUME 8.6 fl (7.0-11.0); MONO # 0.3 (0.1-0.6); MONO % 5.5 % (1.0-6.0); RBC 4.5 10^6/uL (3.5-6.1); WHITE BLOOD COUNT 6.2 10^3/uL (4.5-11.0)
--- NOTE | 2019-02-21 16:08 | ED PDOC ---
Arrival/HPI - General Chief Complaint: Chest Pain Time Seen by Provider: 02/21/19 14:43 Historian: Patient - History of Present Illness Narrative History of Present Illness (Text): 02/21/19 16:06 53-year-old female presents today with anterior chest pain and shortness of breath since yesterday. Patient states she has been having a cough for about 5 days intermittently has been having chest pain for a few days but the pain bec dru severe yesterday. Patient has been taking Tylenol for pain without improvement. She is complaining of dyspnea on exertion. Patient states she was recently diagnosed with COPD. Patient states she has been having continued productive cough. No abdominal pain. No nausea or vomiting. The patient denies back pain. No other complaints Past Medical History - Provider Review Nursing Documentation Reviewed: Yes - Travel History Have you recently traveled outside [place] w/in the past 3 mons?: No - Infectious Disease Hx of Infectious Diseases: None - Tetanus Immunization Tetanus Immunization: Unknown - Cardiac Hx Cardiac Disorders: Yes (denies mi) Hx Angina: Yes Hx Hypertension: Yes - Pulmonary Hx Chronic Obstructive Pulmonary Disease (COPD): Yes - Neurological Hx Neurological Disorder: Yes Hx Migraine: Yes - HEENT Hx HEENT Disorder: No - Renal Hx Renal Disorder: No - Endocrine/Metabolic Hx Endocrine Disorders: Yes Hx Diabetes Mellitus Type 2: Yes - Hematological/Oncological Hx Blood Disorders: No - Integumentary Hx Dermatological Disorder: No - Musculoskeletal/Rheumatological Hx Musculoskeletal Disorders: No Hx Falls: No - Gastrointestinal Hx Gastrointestinal Disorders: No - Genitourinary/Gynecological Hx Genitourinary Disorders: No - Psychiatric Hx Psychophysiologic Disorder: Yes Hx Anxiety: Yes Hx Bipolar Disorder: Yes Hx Panic Disorder: Yes Hx Schizophrenia: Yes Hx Substance Use: No - Surgical History Hx Appendectomy: Yes Hx Cardiac Catheterization: Yes Hx Cholecystectomy: Yes Hx Coronary Stent: Yes Hx Hysterectomy: Yes - Anesthesia Hx Anesthesia: Yes Hx Anesthesia Reactions: No Hx Malignant Hyperthermia: No - Suicidal Assessment Feels Threatened In Home Enviroment: No Family/Social History - Physician Review Nursing Documentation Reviewed: Yes Family/Social History: Unknown Family HX Smoking Status: Former Smoker Hx Alcohol Use: No Hx Substance Use: No Allergies/Home Meds Allergies/Adverse Reactions: Allergies aspirin Allergy (Verified 02/21/19 14:41) SHORTNESS OF BREATH Home Medications: Home Meds Medication Instructions Recorded Confirmed Aripiprazole [Abilify] 20 mg PO DAILY 10/31/18 10/31/18 Oxcarbazepine [Trileptal] 150 mg PO BID 10/31/18 10/31/18 Trazodone HCl 150 mg PO HS 10/31/18 10/31/18 Review of Systems - Review of Systems Constitutional: absent: Fatigue, Fevers ENT: absent: Sore Throat, Sinus Congestion Respiratory: SOB, Cough Cardiovascular: Chest Pain. absent: Palpitations Gastrointestinal: absent: Abdominal Pain, Constipation, Diarrhea, Nausea, Vomiting Genitourinary Female: absent: Dysuria, Frequency, Hematuria Musculoskeletal: absent: Arthralgias, Back Pain, Neck Pain Skin: absent: Rash, Pruritis Psychiatric: absent: Anxiety, Depression Physical Exam Vital Signs Reviewed: Yes Vital Signs Temp Pulse Resp BP Pulse Ox 02/21/19 14:42 98.4 F 98 H 18 118/80 99 Temperature: Afebrile Blood Pressure: Normal Pulse: Regular Respiratory Rate: Normal Appearance: Positive for: Well-Appearing, Non-Toxic, Comfortable Pain Distress: None Mental Status: Positive for: Alert and Oriented X 3 - Systems Exam Head: Present: Atraumatic Mouth: Present: Moist Mucous Membranes Neck: Present: Normal Range of Motion Respiratory/Chest: Present: Clear to Auscultation, Good Air Exchange. No: Respiratory Distress, Accessory Muscle Use Cardiovascular: Present: Regular Rate and Rhythm, Normal S1, S2. No: Murmurs Abdomen: No: Tenderness, Distention, Rebound, Guarding Back: Present: Normal Inspection Upper Extremity: Present: Normal ROM Lower Extremity: Present: Normal ROM. No: Tenderness Neurological: Present: GCS=15, Speech Normal Skin: Present: Warm, Dry, Normal Color. No: Rashes Psychiatric: Present: Alert, Oriented x 3 Medical Decision Making ED Course and Treatment: 02/21/19 16:08 53yr old female with chest pain, cough, sob cbc; within normal limits cmp; within normal limits trop: Within normal limits ekg; normal sinus rhythm at 73 bpm normal axis normal intervals no ST elevations cxr: wnl CT; FINDINGS: PULMONARY ARTERIES: Unremarkable. No pulmonary embolism. AORTA: No acute findings. No thoracic aortic aneurysm. No atherosclerotic calcification or mural plaque present. LUNGS: Unremarkable. No nodule, mass or pulmonary consolidation. PLEURAL SPACES: Unremarkable. No effusion or pneumothorax. HEART: Unremarkable. No cardiomegaly. No significant pericardial effusion. LYMPH NODES: No lymphadenopathy. BONES, CHEST WALL: Unremarkable. No fracture or destructive lesion OTHER FINDINGS: Unremarkable. IMPRESSION: Unremarkable CT pulmonary angiogram. No pulmonary embolus. Patient is allergic to aspirin. So I will not give aspirin in the ER. pt reassessment; resting comfortably pt with hx of htn, DM, hyperlipidemia. case discussed with will Admit observational status to Tele for chest pain r/o acs. impression; chest pain Admit observational status to remote tele. - RAD Interpretation Radiology Orders: 02/21/19 15:18 CHEST PORTABLE [RAD] Stat Disposition/Present on Arrival - Present on Arrival Any Indicators Present on Arrival: No History of DVT/PE: No History of Uncontrolled Diabetes: No Urinary Catheter: No History of Decub. Ulcer: No History Surgical Site Infection Following: None - Disposition Have Diagnosis and Disposition been Completed?: Yes Diagnosis: Chest pain Disposition: HOSPITALIZED Disposition Time: 18:00 Patient Plan: Observation Condition: FAIR Discharge Instructions (ExitCare): Chest Pain (ED) Forms: [employer] (Swedish)
[2019-02-21 16:09] LABS: URINE BILIRUBIN NEGATIVE (NEGATIVE); URINE BLOOD NEGATIVE (NEGATIVE); URINE GLUCOSE (UA) NEGATIVE (NEGATIVE); URINE LEUKOCYTE ESTERASE NEGATIVE Leu/uL (NEGATIVE); URINE PROTEIN NEGATIVE mg/dL (<30 mg/dL); URINE UROBILINOGEN 0.2 E.U./dL (<1 E.U./dL)
[2019-02-21 16:11] LABS: ALB/GLOB RATIO 1.5 (1.1-1.8); ALBUMIN 4.4 g/dL (3.0-4.8); ALT/SGPT 15 U/L (7-56); AST/SGOT 27 U/L (14-36); BLOOD UREA NITROGEN 12 mg/dL (7-21); CALCIUM 9.8 mg/dL (8.4-10.5); GFR NON-AFRICAN AMERICAN > 60; LIPASE 111 U/L (23-300)
[2019-02-21 16:22] LABS: B-TYPE NATRIURETIC PEPTIDE 22.1 pg/mL (0-450); TROPONIN I < 0.01 ng/mL
--- NOTE | 2019-02-21 16:22 | RAD ---
Date of service: 02/21/2019 HISTORY: chest pain/sob COMPARISON: 12/01/2018 TECHNIQUE: 1 view obtained. FINDINGS: LUNGS: No active pulmonary disease. PLEURA: No significant pleural effusion identified, no pneumothorax apparent. CARDIOVASCULAR: No aortic atherosclerotic calcification present. Normal cardiac size. No pulmonary vascular congestion. OSSEOUS STRUCTURES: No significant abnormalities. VISUALIZED UPPER ABDOMEN: Normal. OTHER FINDINGS: None. IMPRESSION: No active disease.
[2019-02-21 16:28] LABS: URINE APPEARANCE CLEAR (CLEAR); URINE COLOR YELLOW (YELLOW)
--- NOTE | 2019-02-21 17:38 | CT ---
Date of service: 02/21/2019 PROCEDURE: CT Chest with contrast (Pulmonary Angiogram) HISTORY: CP/SOB COMPARISON: None available. TECHNIQUE: Axial computed tomography images were obtained of the chest in the pulmonary arterial phase of enhancement. Coronal and sagittal reformatted images were created and reviewed. Intravenous contrast dose: 149 cc Omnipaque 350 Mean Hounsfield value in the main pulmonary artery: 470.84 Radiation dose: Total exam DLP = 161.57 mGy-cm. This CT exam was performed using one or more of the following dose reduction techniques: Automated exposure control, adjustment of the mA and/or kV according to patient size, and/or use of iterative reconstruction technique. FINDINGS: PULMONARY ARTERIES: Unremarkable. No pulmonary embolism. AORTA: No acute findings. No thoracic aortic aneurysm. No atherosclerotic calcification or mural plaque present. LUNGS: Unremarkable. No nodule, mass or pulmonary consolidation. PLEURAL SPACES: Unremarkable. No effusion or pneumothorax. HEART: Unremarkable. No cardiomegaly. No significant pericardial effusion. LYMPH NODES: No lymphadenopathy. BONES, CHEST WALL: Unremarkable. No fracture or destructive lesion OTHER FINDINGS: Unremarkable. IMPRESSION: Unremarkable CT pulmonary angiogram. No pulmonary embolus.
[2019-02-21] MEDS ORDERED: Albuterol 0.083% Inhal Sol (2.5 mg/3 mL) UD IH STA (18:16)
--- NOTE | 2019-02-21 19:44 | CP.PCM.HP ---
<TriciaMilagros - Last Filed: 02/21/19 19:26> History of Present Illness - History of Present Illness History of Present Illness: Milagros Clarke, PGY-1, Internal Medicine History and Physical for Dr. Ibrahim 53 year old female with past medical history of COPD, manic bipolar, hypertension, diabetes mellitus type II, seizure disorder presented with squeezing chest pain for a few days. Pain is located on the right side of the chest and does not radiate. Pain is worse with walking and improved with nitroglycerin. She reports that the pain significantly increased this afternoon as she was walking to [place] and decided to come to the emergency department. She reports falling on the way to the supermarket but did not hit her head. She had another fall 2 days ago where she fell down the stairs and hit her head. Patient reports bump on the posterior side of her head. She reported v omiting twice, once per day the past two days, and had 4-5 episodes of yellow diarrhea daily for the past 4 days. She denies any recent travel history or new food consumption. She reported nosebleeds for the past 3 days as well. She also reports having a seizure 3 days ago. She was leaving to go somewhere with her friend and her friend said it lasted 5 minutes where she was shaking. She does not remember this incident after that. Patient had pressured speech and flight of ideas throughout examination and thus history is incomplete. 12-point ROS was unremarkable except for what was mentioned above. PMH: as stated above PSH: appendectomy, total hysterectomy FMHx: noncontributary SHx: stopped smoking 1 year ago, smoked 2-3 PPD for 10 years, social alcohol, denies recreational drug use Allergies: aspirin-causes swelling PMD: [facility]: unknown Home medications: unknown Present on Admission - Present on Admission Any Indicators Present on Admission: No Review of Systems - Review of Systems Review of Systems: except as mentioned in HPI Past Patient History - Infectious Disease Hx of Infectious Diseases: None - Tetanus Immunizations Tetanus Immunization: Unknown - Past Social History Smoking Status: Former Smoker - CARDIAC Hx Cardiac Disorders: Yes (denies mi) Hx Angina: Yes Hx Hypertension: Yes - PULMONARY Hx Chronic Obstructive Pulmonary Disease (COPD): Yes - NEUROLOGICAL Hx Neurological Disorder: Yes Hx Migraine: Yes - HEENT Hx HEENT Problems: No - RENAL Hx Chronic Kidney Disease: No - ENDOCRINE/METABOLIC Hx Endocrine Disorders: Yes Hx Diabetes Mellitus Type 2: Yes - HEMATOLOGICAL/ONCOLOGICAL Hx Blood Disorders: No - INTEGUMENTARY Hx Dermatological Problems: No - MUSCULOSKELETAL/RHEUMATOLOGICAL Hx Musculoskeletal Disorders: No Hx Falls: No - GASTROINTESTINAL Hx Gastrointestinal Disorders: No - GENITOURINARY/GYNECOLOGICAL Hx Genitourinary Disorders: No - PSYCHIATRIC Hx Psychophysiologic Disorder: Yes Hx Anxiety: Yes Hx Bipolar Disorder: Yes Hx Panic Symptoms: Yes Hx Schizophrenia: Yes Hx Substance Use: No - SURGICAL HISTORY Hx Appendectomy: Yes Hx Cardiac Catheterization: Yes Hx Cholecystectomy: Yes Hx Coronary Stent: Yes Hx Hysterectomy: Yes - ANESTHESIA Hx Anesthesia: Yes Hx Anesthesia Reactions: No Hx Malignant Hyperthermia: No Meds Allergies/Adverse Reactions: Allergies Allergy/AdvReac Type Severity Reaction Status Date / Time aspirin Allergy SHORTNESS Verified 02/21/19 14:41 OF BREATH Physical Exam - Constitutional Appears: Agitated, Confused - Head Exam Head Exam: NORMAL INSPECTION, NORMOCEPHALIC Additional comments: bump on occiput - Eye Exam Eye Exam: EOMI, PERRL - ENT Exam ENT Exam: Mucous Membranes Moist - Respiratory Exam Respiratory Exam: Clear to Auscultation Bilateral, NORMAL BREATHING PATTERN - Cardiovascular Exam Cardiovascular Exam: REGULAR RHYTHM, RRR, +S1, +S2, Systolic Murmur. absent: Clicks, Gallop, JVD, Rubs - GI/Abdominal Exam GI & Abdominal Exam: Normal Bowel Sounds, Soft. absent: Distended, Firm, Guarding, Tenderness - Extremities Exam Extremities exam: Positive for: full ROM, normal inspection. Negative for: joint swelling, pedal edema - Neurological Exam Neurological exam: Alert, Altered, CN II-XII Intact, Oriented x3 - Psychiatric Exam Psychiatric exam: Agitated, Anxious - Skin Skin Exam: Dry, Intact, Normal Color Results - Vital Signs Recent Vital Signs: Last Vital Signs Temp 98.4 F 02/21/19 14:42 Pulse 98 H 02/21/19 14:42 Resp 18 02/21/19 14:42 BP 118/80 02/21/19 14:42 Pulse Ox 99 02/21/19 14:42 - Labs Result Diagrams: 02/21/19 15:54 02/21/19 15:54 Labs: Laboratory Results - last 24 hr 02/21/19 02/21/19 02/21/19 15:54 15:54 15:54 WBC 6.2 D RBC 4.50 Hgb 13.3 Hct 40.0 MCV 88.9 D MCH 29.6 MCHC 33.3 RDW 13.0 Plt Count 249 MPV 8.6 Neut % (Auto) 58.6 Lymph % (Auto) 35.1 H Foster % (Auto) 5.5 Eos % (Auto) 0.6 L Baso % (Auto) 0.2 Lymph # (Auto) 2.2 Foster # (Auto) 0.3 Eos # (Auto) 0.0 Baso # (Auto) 0.01 Absolute Neuts (auto) 3.62 D-Dimer, Quantitative 333 H Sodium 141 Potassium 3.8 Chloride 102 Carbon Dioxide 31 Anion Gap 11 BUN 12 Creatinine 0.6 L Est GFR ( Amer) > 60 Est GFR (Non-Af Amer) > 60 Random Glucose 105 Calcium 9.8 Total Bilirubin 0.4 AST 27 ALT 15 Alkaline Phosphatase 70 Lactate Dehydrogenase 462 Total Creatine Kinase 197 Troponin I < 0.01 NT-Pro-B Natriuret Pep 22.1 Total Protein 7.5 Albumin 4.4 Globulin 3.0 Albumin/Globulin Ratio 1.5 Lipase 111 Urine Color Urine Appearance Urine pH Ur Specific [place] Urine Protein Urine Glucose (UA) Urine Ketones Urine Blood Urine Nitrate Urine Bilirubin Urine Urobilinogen Ur Leukocyte Esterase 02/21/19 16:03 WBC RBC Hgb Hct MCV MCH MCHC RDW Plt Count MPV Neut % (Auto) Lymph % (Auto) Foster % (Auto) Eos % (Auto) Baso % (Auto) Lymph # (Auto) Foster # (Auto) Eos # (Auto) Baso # (Auto) Absolute Neuts (auto) D-Dimer, Quantitative Sodium Potassium Chloride Carbon Dioxide Anion Gap BUN Creatinine Est GFR ( Amer) Est GFR (Non-Af Amer) Random Glucose Calcium Total Bilirubin AST ALT Alkaline Phosphatase Lactate Dehydrogenase Total Creatine Kinase Troponin I NT-Pro-B Natriuret Pep Total Protein Albumin Globulin Albumin/Globulin Ratio Lipase Urine Color Yellow Urine Appearance Clear Urine pH 6.0 Ur Specific [place] 1.015 Urine Protein Negative Urine Glucose (UA) Negative Urine Ketones Negative Urine Blood Negative Urine Nitrate Negative Urine Bilirubin Negative Urine Urobilinogen 0.2 Ur Leukocyte Esterase Negative Assessment & Plan - Assessment and Plan (Free Text) Assessment: 53 year old female with past medical history of COPD, manic bipolar, hypertension, diabetes mellitus type II, seizure disorder presented with squeezing chest pain for a few days. Plan: Chest pain with ACS rule out -EKG: NSR -Tropx1: negative -Will follow up tropx2 -Aspirin not given due to aspirin allergy COPD -Started duonebs 3 Q2PRN for shortness of breath Hypertension -Unknown home meds. Tried to call pharmacy provided and next of kin, but there was no response -Blood pressure controlled at this time -Start hydralazine 10 mg Q6PRN for SBP>180 Diabetes Mellitus type II -Follow up HgbA1c -Started low SSI -Accuchecks ACHS Seizure disorder -Reports seizure but unable to confirm -Will follow up with Head CT -Depakote level ordered to follow up and evaluate if patient is taking depakote -Will try to obtain home medications in the morning Manic bipolar disorder/Anxiety -Will obtain TSH to evaluate as etiology for manic bipolar state/anxiety -Will consult psychiatry for further evaluation Status post fall with head trauma -Will follow up with Head CT to rule out trauma Nausea, vomiting, diarrhea -Will obtain stool studies including stool culture, C. Diff, O and P, and H. Pylori for further evaluation of diarrhea -Started zofran PRN for nausea/vomiting DVT prophylaxis: lovenox 40 mg daily GI prophylaxis: protonix 40 mg daily Patient plan discussed with Dr. Ibrahim. - Date & Time Date: 02/21/19 Time: 19:46 <Leela Ibrahim - Last Filed: 02/21/19 21:25> Results - Vital Signs Recent Vital Signs: Last Vital Signs Temp 98.4 F 02/21/19 14:42 Pulse 100 H 02/21/19 20:09 Resp 18 02/21/19 20:09 BP 130/68 02/21/19 20:09 Pulse Ox 98 02/21/19 20:09 - Labs Result Diagrams: 02/21/19 15:54 02/21/19 15:54 Labs: Laboratory Results - last 24 hr 02/21/19 02/21/19 02/21/19 15:54 15:54 15:54 WBC 6.2 D RBC 4.50 Hgb 13.3 Hct 40.0 MCV 88.9 D MCH 29.6 MCHC 33.3 RDW 13.0 Plt Count 249 MPV 8.6 Neut % (Auto) 58.6 Lymph % (Auto) 35.1 H Foster % (Auto) 5.5 Eos % (Auto) 0.6 L Baso % (Auto) 0.2 Lymph # (Auto) 2.2 Foster # (Auto) 0.3 Eos # (Auto) 0.0 Baso # (Auto) 0.01 Absolute Neuts (auto) 3.62 D-Dimer, Quantitative 333 H Sodium 141 Potassium 3.8 Chloride 102 Carbon Dioxide 31 Anion Gap 11 BUN 12 Creatinine 0.6 L Est GFR ( Amer) > 60 Est GFR (Non-Af Amer) > 60 Random Glucose 105 Calcium 9.8 Total Bilirubin 0.4 AST 27 ALT 15 Alkaline Phosphatase 70 Lactate Dehydrogenase 462 Total Creatine Kinase 197 Troponin I < 0.01 NT-Pro-B Natriuret Pep 22.1 Total Protein 7.5 Albumin 4.4 Globulin 3.0 Albumin/Globulin Ratio 1.5 Triglycerides Cholesterol LDL Cholesterol Direct HDL Cholesterol Lipase 111 TSH 3rd Generation Urine Color Urine Appearance Urine pH Ur Specific [place] Urine Protein Urine Glucose (UA) Urine Ketones Urine Blood Urine Nitrate Urine Bilirubin Urine Urobilinogen Ur Leukocyte Esterase Valproic Acid 02/21/19 02/21/19 02/21/19 15:54 15:54 16:03 WBC RBC Hgb Hct MCV MCH MCHC RDW Plt Count MPV Neut % (Auto) Lymph % (Auto) Foster % (Auto) Eos % (Auto) Baso % (Auto) Lymph # (Auto) Foster # (Auto) Eos # (Auto) Baso # (Auto) Absolute Neuts (auto) D-Dimer, Quantitative Sodium Potassium Chloride Carbon Dioxide Anion Gap BUN Creatinine Est GFR ( Amer) Est GFR (Non-Af Amer) Random Glucose Calcium Total Bilirubin AST ALT Alkaline Phosphatase Lactate Dehydrogenase Total Creatine Kinase Troponin I NT-Pro-B Natriuret Pep Total Protein Albumin Globulin Albumin/Globulin Ratio Triglycerides 56 Cholesterol 195 LDL Cholesterol Direct 88 HDL Cholesterol 76 H Lipase TSH 3rd Generation 0.46 Urine Color Yellow Urine Appearance Clear Urine pH 6.0 Ur Specific [place] 1.015 Urine Protein Negative Urine Glucose (UA) Negative Urine Ketones Negative Urine Blood Negative Urine Nitrate Negative Urine Bilirubin Negative Urine Urobilinogen 0.2 Ur Leukocyte Esterase Negative Valproic Acid 02/21/19 20:00 WBC RBC Hgb Hct MCV MCH MCHC RDW Plt Count MPV Neut % (Auto) Lymph % (Auto) Foster % (Auto) Eos % (Auto) Baso % (Auto) Lymph # (Auto) Foster # (Auto) Eos # (Auto) Baso # (Auto) Absolute Neuts (auto) D-Dimer, Quantitative Sodium Potassium Chloride Carbon Dioxide Anion Gap BUN Creatinine Est GFR ( Amer) Est GFR (Non-Af Amer) Random Glucose Calcium Total Bilirubin AST ALT Alkaline Phosphatase Lactate Dehydrogenase Total Creatine Kinase Troponin I NT-Pro-B Natriuret Pep Total Protein Albumin Globulin Albumin/Globulin Ratio Triglycerides Cholesterol LDL Cholesterol Direct HDL Cholesterol Lipase TSH 3rd Generation Urine Color Urine Appearance Urine pH Ur Specific [place] Urine Protein Urine Glucose (UA) Urine Ketones Urine Blood Urine Nitrate Urine Bilirubin Urine Urobilinogen Ur Leukocyte Esterase Valproic Acid < 10 L Attending/Attestation - Attestation I have personally seen and examined this patient.: Yes I have fully participated in the care of the patient.: Yes I have reviewed all pertinent clinical information: Yes Notes (Text): 02/21/19 21:15 Pt seen. Case discussed with the resident. Agree with documentation,assessment and orders placed so far. Since pt's DDimer is elevated and chest CT is negative,DVT studies of lower extremities to be ordered. Will also get cardiology consult. 02/21/19 21:24
[2019-02-21] MEDS ORDERED: Albuterol-Ipratrop 3 mg / 0.5 (3 ml) UD IH PRN (19:50)
[2019-02-21] MEDS ORDERED: Dextrose 50% SYRINGE Inj (50 ml) IV PRN (19:51)
[2019-02-21 20:23] LABS: HDL CHOLESTEROL 76 mg/dL (29-60)
[2019-02-21 20:34] LABS: LDL CHOLESTEROL 88 mg/dL (0-129)
[2019-02-21] MEDS ORDERED: Nitroglycerin 2% Ointment Foilpak UD TOP ONE ×2 (21:12→21:31)
[2019-02-21 21:30] VITALS: RESP 20
--- NOTE | 2019-02-21 21:44 | CARD ---
APPROVED REPORT Date of service: 02/21/2019 EKG Measurement Heart [id number] <Conclusion> Normal sinus rhythm Normal ECG
[2019-02-21] MEDS: Insulin Reg-LOW-Coverage SC SCH (22:09)
[2019-02-22 04:47] LABS: TROPONIN I < 0.01 ng/mL
[2019-02-22 04:52] LABS: HEMOGLOBIN 12.1 g/dL (12.0-16.0); MEAN CELL VOLUME 89.9 fl (80.0-105.0); RBC 4.07 10^6/uL (3.5-6.1); WHITE BLOOD COUNT 6.3 10^3/uL (4.5-11.0)
[2019-02-22 04:53] LABS: BASO # 0.01 K/mm3 (0.0-2.0); BASO % 0.2 % (0.0-3.0); EOS # 0.1 (0.0-0.7); EOS % 1.1 % (1.5-5.0); LYMPH # 2.5 (1.2-3.4); LYMPH % 39.9 % (22.0-35.0); MEAN CORPUSCULAR HEMOGLOBIN 29.7 pg (25.0-35.0); MEAN CORPUSCULAR HGB CONC 33.1 g/dl (31.0-37.0); MEAN PLATELET VOLUME 8.8 fl (7.0-11.0); MONO # 0.5 (0.1-0.6); MONO % 8.1 % (1.0-6.0); RED CELL DISTRIBUTION WIDTH 13.2 % (11.5-14.5)
[2019-02-22 04:55] LABS: ALB/GLOB RATIO 1.5 (1.1-1.8); ALBUMIN 3.9 g/dL (3.0-4.8); ALT/SGPT 19 U/L (7-56); AST/SGOT 27 U/L (14-36); BLOOD UREA NITROGEN 15 mg/dL (7-21); CALCIUM 9.3 mg/dL (8.4-10.5); GFR NON-AFRICAN AMERICAN > 60
[2019-02-22] MEDS ORDERED: Sodium Chloride 0.9% 1,000 ML IV SCH (06:00)
[2019-02-22] MEDS: Insulin Reg-LOW-Coverage SC SCH ×2 (07:33→11:21)
[2019-02-22 07:56] VITALS: BP 101/68; O2SAT 99
[2019-02-22 07:57] VITALS: TEMP 97.5
--- NOTE | 2019-02-22 09:30 | CT ---
Date of service: 02/21/2019 PROCEDURE: CT HEAD WITHOUT CONTRAST. HISTORY: rule out head trauma COMPARISON: 08/30/2017. TECHNIQUE: Axial computed tomography images were obtained through the head/brain without intravenous contrast. Supplemental Coronal and Sagittal projections created and reviewed. Radiation dose: Total exam DLP = <inf_radiation_dlp> mGy-cm. This CT exam was performed using one or more of the following dose reduction techniques: Automated exposure control, adjustment of the mA and/or kV according to patient size, and/or use of iterative reconstruction technique. FINDINGS: HEMORRHAGE: No intracranial hemorrhage. BRAIN: No mass effect or edema. No atrophy or chronic microvascular ischemic changes. VENTRICLES: Unremarkable. No hydrocephalus. CALVARIUM: Unremarkable. PARANASAL SINUSES: Incompletely visualized mucous retention cyst right maxillary sinus. No significant inflammatory changes. MASTOID AIR CELLS: Unremarkable as visualized. No inflammatory changes. OTHER FINDINGS: None. IMPRESSION: No acute intracranial abnormalities. No significant findings to account for the clinical presentation. No significant interval change compared to the prior examination(s). Concordant results (preliminary interpretation) provided by [facility]. Procedure Completed: 20:49. Preliminary Report: Interpreted and electronically signed: 21:18. Final Interpretation: 09:24.
[2019-02-22] MEDS ORDERED: Enoxaparin 40 mg Syringe SC SCH (10:00)
--- NOTE | 2019-02-22 14:34 | CP.PCM.DIS ---
<Milagros Clarke - Last Filed: 02/22/19 14:15> Provider - Provider Date of Admission: 02/21/19 18:37 Attending physician: Camille Trejo MD Primary care physician: NO PRIMARY CARE PROVIDER Consults: 02/21/19 21:13 Cardiology Consult Routine Comment: Consulting Provider: Farideh Garcia Consulting Physician: Farideh Garcia Reason for Consult: CP r/o ACS Time Spent in preparation of Discharge (in minutes): 60 Hospital Course - Lab Results Lab Results: Most Recent Lab Values WBC 6.3 10^3/uL (4.5-11.0) 02/22/19 04:10 RBC 4.07 10^6/uL (3.5-6.1) 02/22/19 04:10 Hgb 12.1 g/dL (12.0-16.0) 02/22/19 04:10 Hct 36.6 % (36.0-48.0) 02/22/19 04:10 MCV 89.9 fl (80.0-105.0) 02/22/19 04:10 MCH 29.7 pg (25.0-35.0) 02/22/19 04:10 MCHC 33.1 g/dl (31.0-37.0) 02/22/19 04:10 RDW 13.2 % (11.5-14.5) 02/22/19 04:10 Plt Count 231 10^3/uL (120.0-450.0) 02/22/19 04:10 MPV 8.8 fl (7.0-11.0) 02/22/19 04:10 Neut % (Auto) 50.7 % (50.0-68.0) 02/22/19 04:10 Lymph % (Auto) 39.9 % (22.0-35.0) H 02/22/19 04:10 Garza % (Auto) 8.1 % (1.0-6.0) H 02/22/19 04:10 Eos % (Auto) 1.1 % (1.5-5.0) L 02/22/19 04:10 Baso % (Auto) 0.2 % (0.0-3.0) 02/22/19 04:10 Lymph # (Auto) 2.5 (1.2-3.4) 02/22/19 04:10 Garza # (Auto) 0.5 (0.1-0.6) 02/22/19 04:10 Eos # (Auto) 0.1 (0.0-0.7) 02/22/19 04:10 Baso # (Auto) 0.01 K/mm3 (0.0-2.0) 02/22/19 04:10 Absolute Neuts (auto) 3.18 (1.4-6.5) 02/22/19 04:10 D-Dimer, Quantitative 333 ng/mlDDU (0-243) H 02/21/19 15:54 Sodium 141 mmol/L (132-148) 02/22/19 04:10 Potassium 3.6 mmol/L (3.6-5.0) 02/22/19 04:10 Chloride 104 mmol/L (98-107) 02/22/19 04:10 Carbon Dioxide 30 mmol/L (21-33) 02/22/19 04:10 Anion Gap 10 (10-20) 02/22/19 04:10 BUN 15 mg/dL (7-21) 02/22/19 04:10 Creatinine 0.7 mg/dl (0.7-1.2) 02/22/19 04:10 Est GFR ( Amer) > 60 02/22/19 04:10 Est GFR (Non-Af Amer) > 60 02/22/19 04:10 POC Glucose (mg/dL) 139 mg/dL (65-110) H 02/22/19 11:12 Random Glucose 91 mg/dL (70-110) 02/22/19 04:10 Hemoglobin A1c 6.5 % (4.2-6.5) 02/21/19 15:54 Calcium 9.3 mg/dL (8.4-10.5) 02/22/19 04:10 Total Bilirubin 0.4 mg/dL (0.2-1.3) 02/22/19 04:10 AST 27 U/L (14-36) 02/22/19 04:10 ALT 19 U/L (7-56) 02/22/19 04:10 Alkaline Phosphatase 62 U/L (38-126) 02/22/19 04:10 Lactate Dehydrogenase 462 U/L (333-699) 02/21/19 15:54 Total Creatine Kinase 197 U/L (35-230) 02/21/19 15:54 Troponin I < 0.01 ng/mL 02/22/19 04:10 NT-Pro-B Natriuret Pep 22.1 pg/mL (0-450) 02/21/19 15:54 Total Protein 6.5 g/dL (5.8-8.3) 02/22/19 04:10 Albumin 3.9 g/dL (3.0-4.8) 02/22/19 04:10 Globulin 2.7 gm/dL 02/22/19 04:10 Albumin/Globulin Ratio 1.5 (1.1-1.8) 02/22/19 04:10 Triglycerides 56 mg/dL (35-160) 02/21/19 15:54 Cholesterol 195 mg/dL (130-200) 02/21/19 15:54 LDL Cholesterol Direct 88 mg/dL (0-129) 02/21/19 15:54 HDL Cholesterol 76 mg/dL (29-60) H 02/21/19 15:54 Lipase 111 U/L (23-300) 02/21/19 15:54 TSH 3rd Generation 0.46 mIU/mL (0.46-4.68) 02/21/19 15:54 Urine Color Yellow (YELLOW) 02/21/19 16:03 Urine Appearance Clear (CLEAR) 02/21/19 16:03 Urine pH 6.0 (4.7-8.0) 02/21/19 16:03 Ur Specific [place] 1.015 (1.005-1.035) 02/21/19 16:03 Urine Protein Negative mg/dL (<30 mg/dL) 02/21/19 16:03 Urine Glucose (UA) Negative mg/dL (NEGATIVE) 02/21/19 16:03 Urine Ketones Negative mg/dL (NEGATIVE) 02/21/19 16:03 Urine Blood Negative (NEGATIVE) 02/21/19 16:03 Urine Nitrate Negative (NEGATIVE) 02/21/19 16:03 Urine Bilirubin Negative (NEGATIVE) 02/21/19 16:03 Urine Urobilinogen 0.2 E.U./dL (<1 E.U./dL) 02/21/19 16:03 Ur Leukocyte Esterase Negative Dejuan/uL (NEGATIVE) 02/21/19 16:03 Valproic Acid < 10 ug/mL (50.0-100.0) L 02/21/19 20:00 - Hospital Course Hospital Course: Milagros Clarke, PGY-1, Internal Medicine Discharge Summary for Dr. Trejo 53 year old female with past medical history of COPD, manic bipolar, hypertension, diabetes mellitus type II, seizure disorder presented with squeezing chest pain for a few days. Pain was located on the right side of the chest and does not radiate. Pain was worse with walking and improved with nitroglycerin. She reported that the pain significantly increased yesterday afternoon as she was walking to [employer] and decided to come to the emergency department. She reported falling on the way to the supermarket but did not hit her head. She had another fall 2 days prior to presentation where she fell down the stairs and hit her head. Patient reported bump on the posterior side of her head. She reported vomiting twice, once per day the past two days prior to presentation, and had 4-5 episodes of yellow diarrhea daily for the past 4 days prior to admission. She denied any recent travel history or new food consumption. She reported nosebleeds for the past 3 days prior to admission as well. She also reported having a seizure 3 days prior to presentation. She was leaving to go somewhere with her friend and her friend said it lasted 5 minutes where she was shaking. She does not remember this incident after that. Patient had pressured speech and flight of ideas throughout examination and thus history was incomplete. Upon admission, patient had ACS rule out due to chest pain. Patient's EKG showed normal sinus rhythm and troponinx3 was unremarkable. Aspirin was not given due to aspirin allergy. Dr. Garcia evaluated the patient this morning who reported that the patient should follow up outpatient for stress test as patient pinpointed the pain in her epigastric area this morning in comparison to chest yesterday. Patient's blood pressure was well controlled, however, patient was hypotensive overnight with SBP in the 80s and was given 1 L of IV fluid with improvement of blood pressure. Hemoglobin A1c was 6.5. Patient's blood glucose was controlled well with low SSI. For patient's falls, head CT was performed showing no acute intracranial findings. Patient reported taking depakote at home for seizures but depakote level was less than 10. She was counseled regarding importance of taking all medications. Patient seemed to have a manic episode last night as she had flight of ideas. Thus, TSH was ordered to rule out medical cause of manic episode. TSH was unremarkable today. For patient's, nausea, vomiting, and diarrhea, stool cultures were obtained. Patient was told that she would have results sent to her if they were positive. However, this morning, patient had normal bowel movements and thus unlikely has gastroenteritis or colitis. CTA was performed to rule out PE upon this admission which was unremarkable due to elevated D-dimer. Prior to discharge, extremity ultrasound was performed to rule out DVT as D-Dimer was elevated and echocardiogram was performed for evaluation of patient's cardiac function. Formal results will be a vailable upon follow up with Dr. Garcia. Today, patient's flight of ideas resolved and patient was much calmer at bedside. Patient denied any chest pain, shortness of breath, nausea, vomiting, diarrhea, or headache today. Patient was found to be stable and ready for discharge. Patient was told to follow up with her primary care doctor, Dr. Samara Levin, within 3-5 days. Patient was told to follow up with her psychiatrist within 1-2 days for refill of psychiatry medications. Patient was told to follow up for stress test at [facility] and follow up with Dr. Garcia within 1 week. She was told she would get a call regarding stress test and that she could obtain the results of echocardiogram upon visit with Dr. Garcia. She was told to take all home medications as prescribed. Patient was told to return to the emergency department if she had any new or concerning symptoms. Discharge Diagnoses Chest pain with ACS rule out COPD Hypertension Seizure disorder Diabetes Mellitus type II Manic Bipolar disorder Anxiety Status post fall with head trauma Rule out gastroenteritis - Date & Time of H&P Date of H&P: 02/21/19 Time of H&P: 19:26 Discharge Exam - Head Exam Head Exam: NORMAL INSPECTION, NORMOCEPHALIC - Eye Exam Eye Exam: EOMI, PERRL - ENT Exam ENT Exam: Mucous Membranes Moist - Neck Exam Neck exam: Full Rom - Respiratory Exam Respiratory Exam: Clear to PA & Lateral, NORMAL BREATHING PATTERN. absent: Rales, Rhonchi, Wheezes - Cardiovascular Exam Cardiovascular Exam: REGULAR RHYTHM, RRR, +S1, +S2. absent: Clicks, Gallop, JVD - GI/Abdominal Exam GI & Abdominal Exam: Normal Bowel Sounds, Soft, Tenderness (epigastric, very mild) - Extremities Exam Extremities exam: full ROM, normal capillary refill, normal inspection - Back Exam Back exam: absent: CVA tenderness (L), CVA tenderness (R) - Neurological Exam Neurological exam: Alert, CN II-XII Intact, Oriented x3 - Skin Skin Exam: Dry, Intact, Normal Color Discharge Plan - Follow Up Plan Condition: FAIR Disposition: HOME/ ROUTINE Instructions: Chest Pain (DC) Additional Instructions: 1. Please follow up with your primary care doctor, Dr. Samara Levin, within 3-5 days. 2. Please follow up with your psychiatrist within 1-2 days for refill of psychiatry medications 3. Please follow up for stress test at [facility] and follow up with Dr. Garcia within 1 week. You will get a call regarding stress test. You can obtain the results of echocardiogram upon visit with Dr. Garcia. 3. Please take all home medications as prescribed. 4. Please return to the emergency department if you have any new or concerning symptoms. Referrals: Samara Levin MD [Family Provider] - Farideh Garcia MD [Staff Provider] - <Camille Trejo - Last Filed: 02/22/19 17:03> Provider - Provider Date of Admission: 02/21/19 18:37 Attending physician: Camille Trejo MD Primary care physician: NO PRIMARY CARE PROVIDER Consults: 02/21/19 21:13 Cardiology Consult Routine Comment: Consulting Provider: Farideh Garcia Consulting Physician: Farideh Garcia Reason for Consult: CP r/o ACS Hospital Course - Lab Results Lab Results: Most Recent Lab Values WBC 6.3 10^3/uL (4.5-11.0) 02/22/19 04:10 RBC 4.07 10^6/uL (3.5-6.1) 02/22/19 04:10 Hgb 12.1 g/dL (12.0-16.0) 02/22/19 04:10 Hct 36.6 % (36.0-48.0) 02/22/19 04:10 MCV 89.9 fl (80.0-105.0) 02/22/19 04:10 MCH 29.7 pg (25.0-35.0) 02/22/19 04:10 MCHC 33.1 g/dl (31.0-37.0) 02/22/19 04:10 RDW 13.2 % (11.5-14.5) 02/22/19 04:10 Plt Count 231 10^3/uL (120.0-450.0) 02/22/19 04:10 MPV 8.8 fl (7.0-11.0) 02/22/19 04:10 Neut % (Auto) 50.7 % (50.0-68.0) 02/22/19 04:10 Lymph % (Auto) 39.9 % (22.0-35.0) H 02/22/19 04:10 Garza % (Auto) 8.1 % (1.0-6.0) H 02/22/19 04:10 Eos % (Auto) 1.1 % (1.5-5.0) L 02/22/19 04:10 Baso % (Auto) 0.2 % (0.0-3.0) 02/22/19 04:10 Lymph # (Auto) 2.5 (1.2-3.4) 02/22/19 04:10 Garza # (Auto) 0.5 (0.1-0.6) 02/22/19 04:10 Eos # (Auto) 0.1 (0.0-0.7) 02/22/19 04:10 Baso # (Auto) 0.01 K/mm3 (0.0-2.0) 02/22/19 04:10 Absolute Neuts (auto) 3.18 (1.4-6.5) 02/22/19 04:10 D-Dimer, Quantitative 333 ng/mlDDU (0-243) H 02/21/19 15:54 Sodium 141 mmol/L (132-148) 02/22/19 04:10 Potassium 3.6 mmol/L (3.6-5.0) 02/22/19 04:10 Chloride 104 mmol/L (98-107) 02/22/19 04:10 Carbon Dioxide 30 mmol/L (21-33) 02/22/19 04:10 Anion Gap 10 (10-20) 02/22/19 04:10 BUN 15 mg/dL (7-21) 02/22/19 04:10 Creatinine 0.7 mg/dl (0.7-1.2) 02/22/19 04:10 Est GFR ( Amer) > 60 02/22/19 04:10 Est GFR (Non-Af Amer) > 60 02/22/19 04:10 POC Glucose (mg/dL) 139 mg/dL (65-110) H 02/22/19 11:12 Random Glucose 91 mg/dL (70-110) 02/22/19 04:10 Hemoglobin A1c 6.5 % (4.2-6.5) 02/21/19 15:54 Calcium 9.3 mg/dL (8.4-10.5) 02/22/19 04:10 Total Bilirubin 0.4 mg/dL (0.2-1.3) 02/22/19 04:10 AST 27 U/L (14-36) 02/22/19 04:10 ALT 19 U/L (7-56) 02/22/19 04:10 Alkaline Phosphatase 62 U/L (38-126) 02/22/19 04:10 Lactate Dehydrogenase 462 U/L (333-699) 02/21/19 15:54 Total Creatine Kinase 197 U/L (35-230) 02/21/19 15:54 Troponin I < 0.01 ng/mL 02/22/19 04:10 NT-Pro-B Natriuret Pep 22.1 pg/mL (0-450) 02/21/19 15:54 Total Protein 6.5 g/dL (5.8-8.3) 02/22/19 04:10 Albumin 3.9 g/dL (3.0-4.8) 02/22/19 04:10 Globulin 2.7 gm/dL 02/22/19 04:10 Albumin/Globulin Ratio 1.5 (1.1-1.8) 02/22/19 04:10 Triglycerides 56 mg/dL (35-160) 02/21/19 15:54 Cholesterol 195 mg/dL (130-200) 02/21/19 15:54 LDL Cholesterol Direct 88 mg/dL (0-129) 02/21/19 15:54 HDL Cholesterol 76 mg/dL (29-60) H 02/21/19 15:54 Lipase 111 U/L (23-300) 02/21/19 15:54 TSH 3rd Generation 0.46 mIU/mL (0.46-4.68) 02/21/19 15:54 Urine Color Yellow (YELLOW) 02/21/19 16:03 Urine Appearance Clear (CLEAR) 02/21/19 16:03 Urine pH 6.0 (4.7-8.0) 02/21/19 16:03 Ur Specific [place] 1.015 (1.005-1.035) 02/21/19 16:03 Urine Protein Negative mg/dL (<30 mg/dL) 02/21/19 16:03 Urine Glucose (UA) Negative mg/dL (NEGATIVE) 02/21/19 16:03 Urine Ketones Negative mg/dL (NEGATIVE) 02/21/19 16:03 Urine Blood Negative (NEGATIVE) 02/21/19 16:03 Urine Nitrate Negative (NEGATIVE) 02/21/19 16:03 Urine Bilirubin Negative (NEGATIVE) 02/21/19 16:03 Urine Urobilinogen 0.2 E.U./dL (<1 E.U./dL) 02/21/19 16:03 Ur Leukocyte Esterase Negative Dejuan/uL (NEGATIVE) 02/21/19 16:03 Valproic Acid < 10 ug/mL (50.0-100.0) L 02/21/19 20:00 Attending/Attestation - Attestation I have personally seen and examined this patient.: Yes I have fully participated in the care of the patient.: Yes I have reviewed all pertinent clinical information, including history, physical exam and plan: Yes Notes (Text): 02/22/19 17:00 Attending note; Patient seen and examined with resident. Patient is alert and awake. Denies any chest pain Denies any dizziness, palpitation. Denies any nausea, vomiting. Tolerating diet well. Ambulating fine. Patient is a 53 year old female with past medical history of COPD, manic bipolar, hypertension, diabetes mellitus type II, seizure disorder presented with squeezing chest pain for a few days. 1. Atypical chest pain; cardiac enzymes negative. Cardiology evaluation appreciated. Patient had stress test done in 2014 was normal. 2. Elevated d-dimer; secondary to fall . CTA is negative . Lower extremity duplex is negative . 3. Hypotension; resolved with IV fluids. No orthostatic changes noted . Patient is ambulating fine. 4. BiPolar disorder; patient takes multiple p.o. medications. Advised to adjust medications per psychiatrist. Patient will be discharged home today. Follow-up with Dr. Garcia for outpatient stress test Follow-up with PMD Dr. Levin.
--- NOTE | 2019-02-22 14:59 | US ---
HISTORY: Leg pain and swelling. Evaluate for DVT PHYSICIAN(S): Bhupendra Ku MD. TECHNIQUE: Duplex sonography and color-flow Doppler with graded compression were used to evaluate the deep venous systems of both lower extremities. FINDINGS: The visualized deep venous systems of both lower extremities are sonographically normal and compressible. Normal wave forms and augmentation are seen. There is no sonographic evidence for deep venous thrombosis in the visualized segments of both lower extremities. IMPRESSION: No sonographic evidence for deep venous thrombosis in the visualized segments of both lower extremities.
[2019-02-22 15:38] VITALS: PULSE 90
--- NOTE | 2019-02-22 17:27 | CARD ---
APPROVED REPORT Date of service: 02/22/2019 EKG Measurement Heart [id number] <Conclusion> Normal sinus rhythm Normal ECG
--- NOTE | 2019-02-22 18:25 | CARD ---
APPROVED REPORT Date of service: 02/22/2019 EXAM: Two-dimensional and M-mode echocardiogram with Doppler and color Doppler. INDICATION COPD 2D DIMENSIONS Left Atrium (2D)3.8 (1.6-4.0cm)IVSd0.8 (0.7-1.1cm) LVDd4.2 (3.9-5.9cm)PWd0.9 (0.7-1.1cm) LVDs2.8 (2.5-4.0cm)FS (%) 32.9 % LVEF (%)61.7 (>50%) M-Mode DIMENSIONS Aortic Root2.50 (2.2-3.7cm)Aortic Cusp Exc.1.70 (1.5-2.0cm) Aortic Valve AoV Peak Bbelliax313.0cm/Nick Peak GR.13mmHg Mitral Valve MV E Nrpndbzn68.9cm/sMV A Rweofplz197.0cm/sE/A ratio0.9 TDI Lateral E' Peak V12.80cm/sMedial E' Peak V8.38cm/sE/Lateral E'6.9 E/Medial E'10.5 Pulmonary Valve PV Peak Hltublbg28.7cm/sPV Peak Grad.2mmHg Tricuspid Valve TR Peak Jrqbnlvd462rt/sRAP [id number] Peak Gr.23mmHg [id number] LEFT VENTRICLE The left ventricle is normal size. The left ventricular function is normal. The left ventricular ejection fraction is within the normal range.Ej.Fr:62%. Tissue Doppler imaging reveals mild left ventricular diastolic dysfunction. RIGHT VENTRICLE The right ventricle is normal size. The right ventricular systolic function is normal. ATRIA The left atrium size is normal. The right atrium size is normal. AORTIC VALVE The aortic valve is normal in structure. MITRAL VALVE The mitral valve is normal in structure. Mitral regurgitation is trace. TRICUSPID VALVE The tricuspid valve is normal in structure. There is trace tricuspid regurgitation. RVSP: 33mm Hg. PERICARDIAL EFFUSION There is no pericardial effusion. <Conclusion> The left ventricle is normal size. The left ventricular function is normal. The left ventricular ejection fraction is within the normal range.Ej.Fr:62%. Tissue Doppler imaging reveals mild left ventricular diastolic dysfunction. The right ventricle is normal size. The right ventricular systolic function is normal. The left atrium size is normal. The right atrium size is normal. The aortic valve is normal in structure. The mitral valve is normal in structure. Mitral regurgitation is trace.. The tricuspid valve is normal in structure. There is trace tricuspid regurgitation. RVSP: 33mm Hg. There is no pericardial effusion.
--- NOTE | 2019-02-22 22:19 | CON ---
DATE: 02/22/2019 LOCATION: The patient is in room 368, bed 2. REASON FOR CONSULTATION: Chest pain. HISTORY OF PRESENT ILLNESS: A 53-year-old female, known case of COPD, diabetes mellitus, manic and bipolar. She says that she had abdominal pain. She says it was not chest pain, but yesterday on admission, she told that she had chest pain. Now she complains that it was not chest, it was abdominal pain. She had also three loose bowel movements with diarrhea yesterday. Denies any prior history of exertional chest pain. She is known to have diabetes and COPD and manic, bipolar. She states that she was jittery yesterday and she also had a fall yesterday, but no syncope. The fall was related to being jittery and probably she slipped. She denies any loss of consciousness. The patient has no pain now, denies any in abdomen and denies any in the chest. PAST MEDICAL HISTORY: As mentioned before, the patient is known to have manic, bipolar, diabetes mellitus and COPD. The patient in the past had an appendectomy and a total hysterectomy. PERSONAL HISTORY: Used to smoke one pack a day, she says stopped four months ago. Denies drinking. ALLERGIES: THE PATIENT STATES THAT SHE HAS ALLERGY TO ASPIRIN AND SHE GETS SWELLING WHEN SHE TAKES ASPIRIN. FAMILY HISTORY: Not significant. HOME MEDICATION: The patient is on Trazodone HCL 300 mg p.o. at bedtime, Trileptal 150 mg p.o. b.i.d. and Abilify 20 mg p.o. daily. REVIEW OF SYSTEMS: All the systems were reviewed, positives mentioned in history, others were negative. PHYSICAL EXAMINATION: VITAL SIGNS: Blood pressure 101/68, respirations 20, pulse 75 and temperature 97.5. The patient also had blood pressure in three positions, lying down 92/61, sitting 95/59, standing 99/67 so the patient has no postural hypotension. NECK: JVP low. Carotid equal. THORAX: AP diameter is increased. LUNGS: No significant rales. CARDIOVASCULAR: S1 and S2. ABDOMEN: Soft. No tenderness. No organomegaly. Bowel sounds normal. EXTREMITIES: No clubbing. No cyanosis. LABORATORY DATA: WBC 6.3, hemoglobin 12.1, hematocrit 36.6 and platelet 231. Sodium 141, potassium 3.6, BUN 15, creatinine 0.7, sugar 139. AST and ALT are normal. Troponin x2 negative. Protein and bilirubin normal. Chest x-ray is clear. EKG showed normal sinus rhythm and normal EKG. DIAGNOSES: Chest pain and abdominal pain. Earlier the patient said she had chest pain, now she is saying no it was abdominal pain. Manic, bipolar, chronic obstructive pulmonary disease and diabetes mellitus. Yesterday had episode of diarrhea. PLAN: The patient is on medicine Lovenox 40 mg subcutaneous daily and Protonix 40 mg daily. The patient is getting IV fluid and Trileptal 150 mg p.o. b.i.d. We will do echocardiogram and the patient will be scheduled outpatient for nuclear stress test. She was explained everything and she says she will come in outpatient for nuclear stress test. We will follow with you. Farideh Garcia MD
[2019-02-23] MEDS ORDERED: Pantoprazole 40 mg EC Tab PO SCH (07:30)
== END 2019-02-22 15:40 | disposition home or self-care (01) ==
LOC: ED 14:39 → ERH 18:37 → 3RNO 20:57
PROVIDERS: ADMIT Internal Medicine; ATTEND Internal Medicine
DX: R07.89 Other chest pain (principal); I10 Essential (primary) hypertension; F31.10 Bipolar disorder, current episode manic without psychotic features, unspecified; J44.9 Chronic obstructive pulmonary disease, unspecified; G40.909 Epilepsy, unspecified, not intractable, without status epilepticus; E11.9 Type 2 diabetes mellitus without complications; E78.5 Hyperlipidemia, unspecified; R10.13 Epigastric pain; Z87.891 Personal history of nicotine dependence; Z88.6 Allergy status to analgesic agent
CPT/HCPCS: 36415; 70450; 71045; 71275; 80053; 80061; 80164; 81003; 82550; 82948; 83036; 83615; 83690; 83880; 84443; 84484; 85025; 85378; 87040; 87086; 93005; 93306; 93970; 99284; C9113; G0378; J1650; J7030; Q9967